=== PATIENT | male | born 1950 | race Caucasian/White ===

== ENCOUNTER 2025-03-01 07:02 | Emergency (ER) | payer MEDICARE, SELFPAY ==
[2025-03-01] VITALS (8 sets, daily range): BP systolic 129–159; BP diastolic 64–115; PULSE 109–120; RESP 15–20; TEMP 36.6–37.1; O2SAT 98–100; BMI 24.1
--- NOTE | 2025-03-01 07:29 | EKG12_ITS ---
Test Reason : CP Blood Pressure : */* mmHG Vent. Rate : 119 BPM Atrial Rate : 136 BPM P-R Int : * ms QRS Dur : 182 ms QT Int : 406 ms P-R-T Axes : * -82 99 degrees QTcB Int : 571 ms Ventricular-paced rhythm Abnormal ECG Confirmed by YAEL NIETO, JON ([id number]), legal editor MARCIO SIMPSON ([id number]) on 03/02/2025 7:27:19 AM Referred By: WYATT Confirmed By: JON CONLEY MD
--- NOTE | 2025-03-01 07:40 | RAD_ITS ---
PROCEDURE: CHEST PA AND LATERAL 03/01/2025 REASON FOR EXAM: CHEST PAIN TECHNIQUE: Procedure Code: RADCXR Modality: DX Procedure: CHEST PA AND LATERAL COMPARISON: None FINDINGS: Median sternotomy wires are noted. There is a left-sided cardiac device with wires in position. There is no focal infiltrate or consolidation. There is no pneumothorax or effusion identified. Atherosclerotic aortic calcifications are present. There is no acute bony abnormality. RAD/Chest PA and Lateral IMPRESSION: No acute process is identified in the chest. Reading Location: [facility]
--- NOTE | 2025-03-01 07:46 | EDS_ITS ---
HPI History of Present Illness Chief Complaint: Chest Pain Narrative Narrative: Chief complaint and HPI: 75-year-old male with history of proximal atrial fibrillation on Eliquis, HTN, pacemaker presents for evaluation of resolved chest pain. Patient is a poor historian when it comes to his past medical history. Patient states that he woke up this morning around 5:30 AM with left- sided chest pain. States that the pain was located over his pacemaker. States he put a home pulse ox reader on and his oxygen was normal but his heart rate was fluctuating. Called EMS. Patient states his chest pain has resolved. He denies any fever, chills, shortness of breath, palpitations, abdominal pain, nausea, vomiting, bilateral lower extremity swelling. He does not know the medication he takes. Review of systems: See HPI Medications: As listed on the chart Allergies: As listed on the chart PFSH: Per chart Vital signs: As listed on the chart. Reviewed. Physical exam: Gen: A&O x3, NAD Head: Normocephalic, atraumatic Eyes: No sclera icterus, conjunctiva clear ENT: Moist mucous membranes Neck: Trachea midline, No JVD CV: Tachycardic, regular rhythm, no murmurs, no peripheral edema, pacemaker without signs of infection Resp: Lungs CTA BL, no w/r/c GI: Abd soft, non-distended, non-tender, no r/r/g Musc: Full ROM, no deformity Skin: Warm, dry Neuro: Alert, oriented, grossly intact, sensation intact Psych: Cooperative, appropriate mood and affect [facility] Medical History (Updated 03/01/25 @ 11:[address] Steve Stephens, ) A-fib Pacemaker Home Medications ?Medication ?Instructions ?Recorded ?Last Taken ?Type amlodipine 10 mg tablet 10 mg PO DAILY 03/01/2502/09 History apixaban 5 mg tablet (Eliquis) 5 mg PO BID 03/01/25 History atorvastatin 80 mg tablet 80 mg PO DAILY 03/01/2502/09 History carvedilol 6.25 mg tablet (Coreg) 6.25 mg PO BID 30 da ys #60 tabs 03/01/25 Unknown Rx folic acid 1 mg tablet 1 mg PO DAILY 03/01/2502/28 History polysaccharide iron complex 150 mg 150 mg PO DAILY 02/28/25 History iron capsule (Ferrex) sitagliptin phosphate 50 mg tablet 50 mg PO DAILY 02/0902/28/25 History (Januvia) Allergy/AdvReac Type Severity Reaction Status Date / Time No Known Allergies Allergy Verified 03/01/25 07:03 Social History Smoking Status: Never smoker EXAM Physical Exam Const Vital Signs: 03/01/25 07:02 03/01/25 07:03 03/01/25 08:02 Temperature 97.9 F Temperature Source Oral Pulse Rate 115 H 117 H Respiratory Rate 18 18 Respiratory Effort Normal Blood Pressure 159/115 H 129/64 H Blood Pressure Mean 129 85 Pulse Ox 100 98 Oxygen Delivery Method Room Air Room Air 03/01/25 09:00 03/01/25 10:00 03/01/25 11:23 Temperature Temperature Source Pulse Rate 109 H 115 H 119 H Respiratory Rate 18 16 20 H Respiratory Effort Blood Pressure 134/78 H 136/110 H Blood Pressure Mean 96 118 Pulse Ox 98 100 Oxygen Delivery Method Room Air 03/01/25 11:30 03/01/25 12:00 03/01/25 12:38 Temperature 98.7 F Temperature Source Pulse Rate 120 H 114 H Respiratory Rate 15 16 Respiratory Effort Blood Pressure 131/82 H 138/101 H 138/101 H Blood Pressure Mean 98 113 113 Pulse Ox 98 100 Oxygen Delivery Method Room Air MDM MDM MDM Narrative Medical decision making narrative: 75-year-old male with history of proximal atrial fibrillation on Eliquis, HTN, pacemaker presents for evaluation of resolved chest pain. Patient is a poor historian when it comes to his past medical history. Patient states that he woke up this morning around 5:30 AM with left-sided chest pain and fluctuating heart rate. States his chest pain has since resolved. He does not know the medications he takes. On chart review, patient is not been seen at [facility]. He states he is mostly seen by [facility]. I was able to [facility] the patient. 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 He is on Eliquis, 81 mg aspirin, 80 mg atorvastatin, Januvia 50 mg, amlodipine 10 mg, Coreg 3.125 mg twice daily. His last echocardiogram was 12/31/2024 and his EF was 44%. Differential diagnosis includes but is not limited to atrial fibrillation, electrolyte abnormality, dehydration, thyroid disease, ACS, CHF, arrhythmia. 500 cc NS bolus ordered with aspirin. Will interrogate his pacemaker once we are able to figure out what brand he has. EKG was personally reviewed and interpreted by me, ED physician. V paced rhythm with LBBB. Heart rate 119. I do not have a previous EKG to compare to. Chest x-ray was personal ly viewed interpreted by me, ED physician. No pneumonia, effusion, cardiomegaly, pneumothorax. Pacemaker in place. Radiology in agreement. CBC without leukocytosis. Patient has anemia with hemoglobin of 12. Platelets unremarkable. Coagulation panel unremarkable. BMP shows CKD with a BUN of 26 and creatinine 1.46. Magnesium level unremarkable. Troponin 34 and 33. I suspect this is the patient's baseline. BNP elevated at 2182. Patient is not fluid overloaded on physical exam or chest x-ray. TSH unremarkable. I was able to interrogate the patient's pacemaker as it is [employer]. I spoke to the employee's representative at the phone. Patient is in atrial tachycardia with a rate of 139. He he is V-paced one-to-one. States that this may be a slow atrial flutter versus a sinus tachycardia. Patient was in a flutter on 02/26 with a rate of 204. He was in this for 26 hours. Given this information, cardiology was consulted. Patient's heart rate here has been anywhere to the 110s to 120. While on the phone with cardiology, rate was 119. I spoke with Dr. Rios. Okay with discharging home with a heart rate of 119 however did recommend giving 20 Cardizem now and increasing patient's Coreg to 6.25 twice daily. Follow-up with his inventory control specialist. Patient and his daughter updated over the results and confirmed understanding. Patient was given 20 mg of Cardizem without any si gnificant improvement in heart rate. Heart rate remains in the 114/115. He is currently asymptomatic without chest pain. Given cardiology, okay to discharge home and follow-up with his inventory control specialist. Given that patient did not take his Coreg today, I did give him a dose of the 6.25 mg prior to discharge. Prescription was written. He was told to monitor his heart rate at home. Return back to the ED if it worsens or symptoms recur. He confirmed understand the plan. Follow-up with cardiology and PCP. Patient stable to discharge home. Impression: 1. Atrial tachycardia 2. Resolved chest pain Lab Data Labs: Laboratory Results - last 24 hr 03/01/25 03/01/25 07:31 09:20 WBC 9.6 RBC 3.98 L Hgb 12.0 L Hct 35.9 L MCV 90.2 MCH 30.2 MCHC 33.4 RDW Std Deviation 45.4 H RDW Coeff of Megan 13.9 Plt Count 196 MPV 9.7 Immature Gran % (Auto) 0.300 Neut % (Auto) 63.1 Lymph % (Auto) 15.3 L Scre[place] % (Auto) 8.5 Eos % (Auto) 12.1 H Baso % (Auto) 0.7 Absolute Neuts (auto) 6.0 Absolute Lymphs (auto) 1.46 Nucleated RBC % 0 PT 14.5 INR 1.1 APTT 31.8 Sodium 139 Potassium 4.3 Chloride 106 Carbon Dioxide 22.7 Anion Gap 11 BUN 26 H Creatinine 1.46 H Estim Creat Clear Calc 43.75 L Est GFR (MDRD) Non-Af 49 L BUN/Creatinine Ratio 17.5 Glucose 179 H Calcium 9.2 Magnesium 2.2 Troponin T High Sens 34 H Troponin T Hi Sens 2 Hr 33 H NT pro BNP II 2182 H TSH 4.170 Radiography Diagnostic Testing: Clinical Impression(s) from Imaging Studies Chest X-Ray 03/01/25 07:40 IMPRESSION: No acute process is identified in the chest. Reading [facility] Dis[facility] Triage Chief Complaint: Chest Pain ED Provider: Steve Stephens Dx/Rx/DC Orders Clinical Impression: Atrial tachycardia Instructions: Understanding Tachycardia, ED Chest Pain, Uncertain Cause Prescriptions: New carvedilol [Coreg] 6.25 mg tablet 6.25 mg PO BID 30 Days Qty: 60 0RF Rx Instructions: must administer with a meal/food Discontinued carvedilol 3.125 mg tablet 3.125 mg PO BID No Action atorvastatin 80 mg tablet 80 mg PO DAILY polysaccharide iron complex [Ferrex 150] 150 mg iron capsule 150 mg PO DAILY amlodipine 10 mg tablet 10 mg PO DAILY folic acid 1 mg tablet 1 mg PO DAILY Januvia 50 mg tablet 50 mg PO DAILY Eliquis 5 mg tablet 5 mg PO BID Primary Care Provider: Taylor Zapien NP Referrals: Follow-up with your inventory control specialist [Other] - As soon as possible Taylor Zapien NP, [facility] [Primary Care Provider, Family Practice] - 3-5 Days Activity Restrictions/Additional Instructions: Monitor your heart rate at home. Return back to ED if symptoms change or worsen. Return back to the ED if your tachycardia worsens. Follow-up with your inventory control specialist. Call to make an appointment as soon as possible. Stop taking your carvedilol 3.125 mg. Instead start taking the new prescription that was prescribed. Print Language: Bulgarian Disposition Disposition: Home, Self Care Discharge Date/Time: 03/01/25 12:38
[2025-03-01 07:52] LABS: Hematocrit 35.9 % (40-54); Hemoglobin 12.0 g/dL (13.0-16.5); Immature Granulocytes Count 0.030 X10^3/uL (0.0-0.0); Mean Corp Hgb Conc 33.4 g/dL (32-36); Mean Corpuscular Volume 90.2 fL (80-94); Mean Platelet Vol. 9.7 fl (6.2-12.0); NRBC Flagged by Analyzer 0 % (0-5); Platelet Count 196 K/mm3 (150-450); RBC Distribution Width CV 13.9 % (11.6-14.6); RBC Distribution Width SD 45.4 fl (35.1-43.9); Red Blood Count 3.98 M/mm3 (4.6-6.2); White Blood Count 9.6 K/mm3 (4.4-11.0)
[2025-03-01] MEDS: 0.9% Normal Saline (500mL Bag) 500 ML 1000 ML IV (07:55)
[2025-03-01 08:13] LABS: Anion Gap 11 (5-15); BUN 26 mg/dL (4-19); BUN/Creat Ratio 17.5 RATIO (10-20); Calcium,Total 9.2 mg/dL (7.6-11.0); Carbon Dioxide 22.7 mmol/L (21.0-32.0); Chloride 106 mmol/L (98-108); Estimated Creatinine Clearance 43.75 ml/min (50-250); Glucose 179 mg/dL (70-99); Magnesium 2.2 mg/dL (1.5-2.2); Potassium 4.3 mmol/L (3.3-5.1); Pro- Brain NATRIURETIC PEPTIDE 2182 pg/mL (<=1800); Troponin T High Sensitivity 34 ng/L (<=22)
[2025-03-01 09:35] LABS: Prothrombin Time (Protime)PT. 14.5 SECONDS (11.7-14.9)
[2025-03-01 09:36] LABS: Partial Thromboplast Time 31.8 Seconds (24.1-36.2)
[2025-03-01 09:55] LABS: Troponin T High Sens 2 HR 33 ng/L (<=22)
== END 2025-03-01 12:38 | disposition home or self-care (01) ==
PROVIDERS: Emergency Provider Surgery; PCP Nurse Practitioner Family; Visit Provider Surgery
DX: I47.19 Other supraventricular tachycardia (principal); I48.0 Paroxysmal atrial fibrillation; E11.22 Type 2 diabetes mellitus with diabetic chronic kidney disease; I12.9 Hypertensive chronic kidney disease with stage 1 through stage 4 chronic kidney disease, or unspecified chronic kidney disease; N18.9 Chronic kidney disease, unspecified; Q60.0 Renal agenesis, unilateral; Z95.0 Presence of cardiac pacemaker; Z79.01 Long term (current) use of anticoagulants; Z79.82 Long term (current) use of aspirin; Z79.84 Long term (current) use of oral hypoglycemic drugs; Z79.899 Other long term (current) drug therapy
CPT/HCPCS: 36415; 71046; 80048; 83735; 83880; 84443; 84484; 85025; 85610; 85730; 93005; 96361; 96374; 99285; A4216

== ENCOUNTER 2025-03-07 08:54 | Inpatient (IN) | payer MEDICARE, SELFPAY ==
--- OUTSIDE RECORDS SUMMARY | 2024-12-31 10:17 | XMS RPT_ITS ---
Author Name Auto Generated Organization OHIP Care Team Providers Care Slate Roofer Helper Name Role Phone JAKOB ROBLES Referring Unavailable QUEDEN, TAYLOR A Primary Care Unavailable TRAVISJAKOB Attending Unavailable SCHWEIKERT, HEDY A Referring Unavailable QUEDEN, TAYLOR A Primary Care Unavailable QUEDEN, TAYLOR A Primary Care Unavailable TRAVISJAKOB Referring Unavailable TRAVIS, JAKOB JIMÉNEZ Referring Unavailable QUEDEN, TAYLOR A Primary Care Unavailable QUEDEN, TAYLOR A Referring Unavailable QUEDEN, TAYLOR A Primary Care Unavailable QUEDEN, TAYLOR A Primary Care Unavailable QUEDEN, TAYLOR A Attending Unavailable QUEDEN, TAYLOR A Referring Unavailable QUEDEN, TAYLOR A Primary Care Unavailable KAJAL REMY Attending Unavailable QUEDEN, TAYLOR A Primary Care Unavailable SELF Referring Unavailable QUEDEN, TAYLOR A Attending Unavailable QUEDEN, TAYLOR A Referring Unavailable SCHWEIKERT, HEDY A Attending Unavailable QUEDEN, TAYLOR A Primary Care Unavailable QUEDEN, TAYLOR A Primary Care Unavailable QUEDEN, TAYLOR A Primary Care Unavailable PROBLEMS DATE TYPE CONDITION / CODE ATTENDING STATUS [facility] 08/15/2020 Active Paroxysmal atria l fibrillation (HCC) / I48.0(ICD-10) NA Active [facility] 12/31/2024 Active Screening for pr ostate cancer / Z12.5(ICD-10) NA Active [facility] 12/08/2024 Active Screening for co rain cancer / Z12.11(ICD-10) KAJAL REMY Active [facility] 02/08/2022 Active Type 2 diabetes mellitus with stage 3 chronic kidney disease, without long-term current use of insulin, unspecified whether stage 3a or 3b CKD (HCC) / E11.22(ICD-10) KENNA TAYLOR Sanchez Active [facility] 02/08/2022 Active Type 2 diabetes mellitus with stage 3 chronic kidney disease, without long-term current use of insulin, unspecified whether stage 3a or 3b CKD (HCC) / N18.30(ICD-10) TAYLOR PIERSON [facility] 09/19/2020 Active Stage 3 chronic kidney disease, unspecified whether stage 3a or 3b CKD (HCC) / N18.30(ICD-10) TAYLOR PIERSON [facility] 08/15/2020 Active Presence of card iac pacemaker / Z95.0(ICD-10) TAYLOR PIERSON [facility] 08/15/2020 Active Anemia, unspecif ied type / D64.9(ICD-10) TAYLOR PIERSON [facility] 06/20/2020 Active Anticoagulant lo ng-term use / Z79.01(ICD-10) TAYLOR PIERSON [facility] 02/19/2022 Active Coronary artery disease involving [place] coronary artery of [place] heart without angina pectoris / I25.10(ICD-10) JAKOB ROBLES Active [facility] 08/15/2020 Active Hyperlipidemia, mixed / E78.2(ICD-10) JAKOB ROBLES Active [facility] 08/15/2020 Active Essential hypert ension, benign / I10(ICD-10) JAKOB ROBLES Active [facility] 08/15/2020 Active S/P CABG x 2 / Z95.1(ICD-10) JAKOB ROBLES Active [facility] 07/22/2020 Active Bilateral caroti d bruits / R09.89(ICD-10) JAKOB ROBLES Active [facility] 07/23/2024 Active Heart block / I45.9(ICD-10) [facility] 02/08/2022 Active Type 2 diabetes mellitus with stage 3a chronic kidney disease, without long-term current use of insulin (HCC) / E11.22(ICD-10) [facility] 02/08/2022 Active Type 2 diabetes mellitus with stage 3a chronic kidney disease, without long-term current use of insulin (HCC) / N18.31(ICD-10) [facility] 05/05/2024 Active Hypertension, es sential / I10(ICD-10) NA Active [facility] 06/17/2020 Active At risk for stro ke / Z91.89(ICD-10) HEDY ROBLES Active [facility] 10/26/2019 Active Bradycardia / R00.1(ICD-10) HEDY ROBLES Active [facility] 10/26/2019 Active Second degree atrioventricular block / I44.1(ICD-10) HEDY ROBLES Active [facility] 04/22/2024 Active HB (heart block) / I45.9(ICD-10) NA Active [facility] PROCEDURES No Procedure Records Found RESULTS PROGRESS Observed: 03/02/2025 4:57 PM Status: COMPLETED Source: [facility] HNO ID: [id number] Author: ES DAWN RN Service: ? Author Type: Registered Nurse Type: Progress Notes Filed: 03/02/2025 17:07 Note Text: ED Follow-Up Note Provider Action / FYI: Call completed by: RN Patient seen in ED: Out of Network ED Contact made with Patient: Yes The patient was identified by Name and Date of . Discussed Care with: daughter Patient was seen in the Emergency Department (ED) Location: [place] ED Date: 03/01/25 Reason for ED Visit: Chest pain ED Intervention: Labs, EKG New Medications: N/A Medication Changes: Coreg 6.25 mg bid Does patient understand medication changes: Yes Can patient afford medication changes: Yes Patient educated on worsening symptoms and when and where to seek additional care: Yes Patient Education Provided including treatment plan and new orders. Patient provided with appropriate counseling: Yes Based on mining professionals, the following disposition is advised: No symptoms or symptoms present, not severe. Routed to: No Action Needed Action: ED follow up appointment scheduled 03/23/25 Es Dawn RN March 02, 2025 5:06 PM CNPTOUTREACH Observed: 03/02/2025 12:00 AM Status: COMPLETED Source: [facility] Patient Outreach (AGACM) SHARON MEJIA ([id number]) 1950 M Date Time Provider Department 03/02/25 ES DAWN AGACM During your visit today, we recorded the following information about you: Es Dawn RN 03/02/2025 5:07 PM Signed ED Follow-Up Note Provider Action / FYI: Call completed by: RN Patient seen in ED: Out of Network ED Contact made with Patient: Yes The patient was identified by Name and Date of . Discussed Care with: daughter Patient was seen in the Emergency Department (ED) Location: [place] ED Date: 03/01/25 Reason for ED Visit: Chest pain ED Intervention: Labs, EKG New Medications: N/A Medication Changes: Coreg 6.25 mg bid Does patient understand medication changes: Yes Can patient afford medication changes: Yes Patient educated on worsening symptoms and when and where to seek additional care: Yes Patient Education Provided including treatment plan and new orders. Patient provided with appropriate counseling: Yes Based on mining professionals, the following disposition is advised: No symptoms or symptoms present, not severe. Routed to: No Action Needed Action: ED follow up appointment scheduled 03/23/25 Es Dawn RN March 02, 2025 5:06 PM Allergies As of Date: 03/02/2025 Noted Allergy Reaction TAPE (ADHESIVE TAPE-SILICONES) 11/03/2019 2 - Rash Date Reviewed: 12/08/2024 Reviewed by: Dalila Harp LPN - Fully Assessed Reason for Visit: Tax Accountant Ed Follow Up [8056] Cmt: ED Follow up call Prescriptions as of 03/02/2025 - FERREX 150 150 mg iron capsule Take 1 capsule by mouth once daily. - amLODIPine (NORVASC) 10 mg tablet Take 1 tablet by mouth once daily - folic acid 1 mg tablet Take 1 tablet by mouth once daily - carvedilol (COREG) 3.125 mg tablet TAKE 1 TABLET BY MOUTH TWICE DAILY WITH MEALS - SITagliptin phosphate (JANUVIA) 50 mg tablet Take 1 tablet by mouth once daily - atorvastatin (LIPITOR) 80 mg tablet Take 1 tablet by mouth once daily. - ELIQUIS 5 mg tab(s) Take 1 tablet by mouth twice daily - ascorbic acid, vitamin C, (VITAMIN C) 500 mg tablet Take 1 tablet by mouth once daily. - MEDICATION, NON-DATABASE Take 1 tablet by mouth once daily. Stool softner - aspirin, enteric coated (ASPIRIN, ENTERIC COATED) 81 mg EC tablet Take 1 tablet by mouth once daily. Meds Comments as of 08/17/2020: 08/17/20 The medications are managed by this patient by: PATIENT and SPOUSE Loreto Dash Pharmacist Problem List As Of Date 03/02/2025 Noted Resolved Tobacco use disorder [F17.200] 08/31/2005 03/14/2020 UTI (URINARY TRACT INFECTION) [N39.0] 08/31/2005 03/14/2016 Essential hypertension, benign [I10] 08/31/2005 Bradycardia [R00.1] 10/22/2019 Second degree atrioventricular block [I44.1] 10/26/2019 HTN (hypertension) [I10] Type 2 diabetes mellitus with stage 3 chronic k* Presence of cardiac pacemaker [Z95.0] 10/26/2019 Chest tightness [R07.89] 11/08/2019 11/09/2019 Lightheadedness [R42] 11/08/2019 11/09/2019 Dizziness [R42] 11/08/2019 11/09/2019 Neurogenic bladder [N31.9] 11/20/2019 Self-catheterizes urinary bladder [Z78.9] 11/20/2019 Acute congestive heart failure (HCC) [I50.9] 11/20/2019 06/17/2020 Poor high blood pressure control [I10] 12/18/2019 02/12/2021 Stage 3a chronic kidney disease (HCC) [N18.31] 12/31/2019 Unequal blood pressures in paired extremities [*12/31/2019 Paroxysmal atrial fibrillation (HCC) [I48.0] At risk for stroke [Z91.89] Anticoagulant long-term use [Z79.01] Hyperlipidemia, mixed [E78.2] 06/21/2020 Unstable angina (HCC) [I20.0] 07/16/2020 07/18/2020 Bilateral carotid bruits [R09.89] 07/22/2020 Atherosclerosis of [place] artery of extremity w*07/22/2020 Chest pain [R07.9] 07/25/2020 08/15/2020 SOB (shortness of breath) [R06.02] 07/25/2020 Anemia [D64.9] 08/09/2020 Malnutrition of mild degree (HCC) [E44.1] 08/10/2020 02/12/2021 S/P CABG x 2 [Z95.1] 08/11/2020 CKD (chronic kidney disease) Stage 3, GFR 30-59*09/19/2020 Hypertensive kidney disease with stage 3 chroni*02/08/2022 CAD (coronary artery disease) [I25.10] Encounter for care of pacemaker [Z45.018] 04/02/2023 Encounter Status:Closed by ES DAWN on 03/02/25 ECHO Observed: 12/31/2024 10:26 AM Status: F Source: [facility] Echocardiography Report: Tra nsthoracic Echo [facility] Date of service: 12/31/2024 10:26:03 AM INTERVIEWER Ordering physician: JAKOB ROBLES Exam indication: CAD Technologist: Noemí Polanco [facility] Interpreting physician: Ayush Crum MD PATIENT: Name: SHARON MEJIA : 1950 Age: 74 years Gender: M History of hypertension, diabetes mellitus, chronic kidney disease and arrhythmia. Previous cardiovascular interventions: Other pacemaker implant Primary rhythm: sinus. Height: 177.80 cm BSA: 1.90 m Weight: 73.03 kg BMI: 23.1 kg/m Heart rate 70 bpm Technically difficult exam due to body habitus. Color Doppler was utilized to interrogate the cardiac valves assessed and spectral Doppler was utilized to determine the flow velocities and pressure gradients reported in this exam. MEASUREMENTS: Value Indexed Normal Max aortic dimension 3.0 cm Ao < 3.8 Left atrial volume 50 ml (biplane A-L) 26 ml/m Renuka <= 34 LV ID (diastole) 4.4 cm (2D) 2.31 cm/m LV ID (systole) 3.4 cm (2D) 1.80 cm/m IVS, leaflet tips 0.9 cm (2D) Posterior wall thickness 1.0 cm (2D) Left ventricular mass 141 g (2D) 74 g/m LV stroke volume 43 ml (2D biplane) LV end diastolic volume 99 ml (2D biplane) 52.1 ml/m 34<=EDVi<75 LV end systolic volume 56 ml (2D biplane) 29.4 ml/m Ejection Fraction 44 % (2D biplane) EF > 52 FINDINGS: LEFT VENTRICLE The left ventricle is normal in size. Left ventricular systolic function is mildly decreased regionally. Left ventricular diastolic function was not evaluated due to pacing. Wall Motion: The mid and distal anterior septum, mid and distal inferior wall, apical lateral segment, mid inferoseptal segment, and apex are mildly hypokinetic. All remaining scored segments are normal. RIGHT VENTRICLE The right ventricle is normal in size. Pacer wires are noted in the right ventricle. Right ventricular systolic function is mildly decreased. RV systolic tissue Doppler velocity is 8.0 cm/s. Tricuspid annular displacement is 1.3 cm. Estimated right ventricular systolic pressure is not reported due to an insufficient tricuspid regurgitation signal. Estimated right atrial pressure is 3 mmHg based on IVC assessment. LEFT ATRIUM The left atrial cavity is normal in size. RIGHT ATRIUM The right atrial cavity is normal in size. Pacer wires are noted in the right atrium. Inferior Vena Cava: The inferior vena cava appears normal measuring 1.1 cm. The vessel decreases greater than 50 percent with inspiration. MITRAL VALVE The mitral valve leaflets are structurally normal. There is no mitral valve regurgitation. TRICUSPID VALVE The tricuspid valve leaflets are structurally normal. There is trace tricuspid valve regurgitation. AORTIC VALVE There is no aortic valve stenosis. There is trace (trace - 1+) aortic valve regurgitation. Tricuspid aortic valve. There is mild thickening. There is mild calcification. The peak gradient is 5 mmHg (peak velocity = 114.8 cm/s). PULMONIC VALVE The pulmonic valve cusps are structurally normal. There is no pulmonic valve stenosis. There is no pulmonic valve regurgitation. AORTA The visualized aorta is normal in size. Measurements - Mid ascending aorta 3.0 cm. INTERATRIAL SEPTUM There is no evidence of intracardiac shunting as detected by Doppler. INTERVENTRICULAR SEPTUM There is abnormal motion of the interventricular septum secondary to a pacemaker and prior cardiac surgery. PERICARDIUM There is no pericardial effusion. There is an epicardial fat pad. CONCLUSIONS: - Technically difficult exam due to body habitus. - Exam indication: CAD - The left ventricle is normal in size. Left ventricular systolic function is mildly decreased. EF = 44 5% (2D biplane). Left ventricular diastolic function was not evaluated due to pacing. - The right ventricle is normal in size. Right ventricular systolic function is mildly decreased. - Wall motion abnormalities as above. - No significant valvular abnormalities. - Exam was compared with the prior echocardiographic exam performed on 07/18/2020. LV function has decreased with new wall motion abnormalities. * * * Final * * * [employer] [facility] Image : [id number] US CAROTID ARTERIES [facility] Observed: 12/31/2024 9:41 AM Status: F Source: [facility] Carotid Duplex Bilateral/Complete Date of service/time: 12/31/2024 9:41:03 AM Name: SHARON MEJIA Date of : 1950 Age: 74 years Gender: M Clinical Indication Follow-up study on a patient with known carotid disease. TECHNIQUE -------- A carotid duplex ultrasound examination was performed, including grayscale imaging and color Doppler and spectral Doppler examination of the below mentioned arteries. FINDINGS -------- RIGHT SIDE Common carotid artery: Origin: PSV: 95 cm/s. EDV: 0 cm/s. Proximal: PSV: 87 cm/s. EDV: 9 cm/s. Mid: PSV: 75 cm/s. EDV: 9 cm/s. Distal: PSV: 81 cm/s. EDV: 12 cm/s. Mild heterogeneous plaque from proximal to mid. Moderate heterogeneous plaque at distal. Internal carotid artery: Origin: PSV: 130 cm/s. EDV: 31 cm/s. Proximal: PSV: 114 cm/s. EDV: 21 cm/s. Mid: PSV: 105 cm/s. EDV: 26 cm/s. Distal: PSV: 62 cm/s. EDV: 16 cm/s. Moderate heterogeneous plaque at origin. ICA/CCA Ratio: 1.6 External carotid artery: Origin: PSV: 107 cm/s. EDV: 0 cm/s. Mild heterogeneous plaque at origin. Subclavian artery: Origin: PSV: 193 cm/s. EDV: 0 cm/s. Proximal: PSV: 213 cm/s. EDV: 0 cm/s. Moderate heterogeneous plaque at origin. Innominate artery: PSV: 86 cm/s. EDV: 0 cm/s. Vertebral artery: PSV: 79 cm/s. EDV: 18 cm/s. LEFT SIDE Common carotid artery: Proximal: PSV: 60 cm/s. EDV: 13 cm/s. Mid: PSV: 97 cm/s. EDV: 22 cm/s. Distal: PSV: 97 cm/s. EDV: 20 cm/s. Mild heterogeneous plaque from proximal to mid. Moderate heterogeneous plaque at distal. Internal carotid artery: Origin: PSV: 215 cm/s. EDV: 63 cm/s. Proximal: PSV: 159 cm/s. EDV: 40 cm/s. Mid: PSV: 120 cm/s. EDV: 33 cm/s. Distal: PSV: 86 cm/s. EDV: 29 cm/s. Moderate heterogeneous plaque at origin. ICA/CCA Ratio: 2.2 External carotid artery: Origin: PSV: 95 cm/s. EDV: 0 cm/s. Subclavian artery: Proximal: PSV: 232 cm/s. EDV: 0 cm/s. Mild/moderate heterogeneous plaque at proximal. IMPRESSION Please note: the new carotid interpretation criteria are used as recommended by Intersoci[employer] Commission. RIGHT SIDE Common carotid artery: Plaque visualized without evidence of hemodynamically significant stenosis. Internal carotid artery: <50% stenosis consistent with mild carotid artery disease. Moderate plaque noted; however, ICA/CCA Ratio does not meet criteria for over 50% stenosis. Vertebral artery: Patent and antegrade flow noted. Subclavian artery: Plaque visualized without evidence of hemodynamically significant stenosis. LEFT SIDE Internal carotid artery: 50-69% stenosis consistent with moderate carotid artery disease. Consider referral to a vascular specialist unless already implemented. Vertebral artery: Bidirectional flow is evidence of incomplete subclavian steal. Subclavian artery: Turbulent flow noted, cannot rule out more proximal subclavian artery stenosis. Plaque noted. May wish other means of evaluation. Technologist: Jacinda Fonseca RVT, [facility] Ordering physician: JAKOB ROBLES Interpreting physician: Ibrahima Mejia MD, RPVI Final CC [employer] [facility] : [id number] See Link below for Image PSA/PROSTATE SPECIFIC ANTIGEN SCREENING Collected: 12/31/2024 9:28 AM Status: F Source: [facility] Order Comment: Specimen Type : BLOOD SPECIMEN Ordering Facility: [facility] Address: [address] [place] [address] TYPE CODE TESTS RESULT OUT OF RANGE REFERENCE UNITS LAB 2857-1(LOINC) PSA [facility] 5.23 High <2.60 ng/mL Result Comment: Total PSA te st methodology used is the Electrochemiluminescence Immunoassay by [employer]. Total PSA values by differing methodologies cannot be interchanged. For an individual patient, the significance of a PSA level should be interpreted in a broad clinical context, including age, race, family history, digital rectal exam, prostate size, results of prior testing (prostate biopsy, free PSA, PCA3), and use of 5-alpha reductase inhibitors. Considering the high incidence of asymptomatic cancer in the general population that may not pose an ultimate risk to a patient, the decision to recommend urological evaluation or prostate biopsy should be individualized after consideration of all these factors. REFERENCE: Feliciano Rain M.D., M.P.H., Ibrahima Santizo M.D., Ph.D., Celestino Maldonado M.D., Nadja Graff, M.P.H., Bonnie Floyd, Sc.Ambreen. Effect of Verification Bias on Screening for Prostate Cancer by Measurement of Prostatic Specific Antigen. N Engl J Med 2003,349:335-42. Performed By: #### PSAS1 ### # [facility] CLIA [id number] [address] [place] [address] [place] COMP METAB 2000 PNL SERPL Collected: 9:28 AM Status: F Source: [facility] Order Comment: Specimen Type : BLOOD SPECIMEN Ordering Facility: [facility] Address: [address] [place] [address] TYPE CODE TESTS RESULT OUT OF RANGE REFERENCE UNITS LAB 2885-2(LOINC) Prot SerPl-mCnc 7.0 6.3-8.0 g/dL LAB 1751-7(LOINC) Albumin SerPl-mCnc 4.4 3.9-4.9 g/dL LAB 95737-1(LOINC) Calcium SerPl-mCnc 9.5 8.5-10.2 mg/dL LAB 1975-2(LOINC) Bilirub SerPl-mCnc 0.3 0.2-1.3 mg/dL LAB 6768-6(LOINC) ALP SerPl-cCnc 120 High 38-113 U/L LAB 1920-8(LOINC) AST SerPl-cCnc 16 14-40 U/L LAB 1742-6(LOINC) ALT SerPl-cCnc 12 10-54 U/L LAB 2345-7(LOINC) Glucose SerPl-mCnc 154 High 74-99 mg/dL Result Comment: The [place] Diabetes Association (ADA) provides guidance for cutoff values for fasting glucose and random glucose. The ADA defines fasting as no caloric intake for at least 8 hours. Fasting plasma glucose results between 100 to 125 mg/dL indicate increased risk for diabetes (prediabetes). Fasting plasma glucose results greater than or equal to 126 mg/dL meet the criteria for diagnosis of diabetes. In the absence of unequivocal hyperglycemia, results should be confirmed by repeat testing. In a patient with classic symptoms of hyperglycemia or hyperglycemic crisis, random plasma glucose results greater than or equal to 200 mg/dL meet the criteria for diagnosis of diabetes. Reference: Standards of Medical Care in Diabetes 2016, [place] Diabetes Association. Diabetes Care. 2016.39(Suppl 1). LAB 3094-0(LOINC) BUN SerPl-mCnc 24 9-24 mg/dL LAB 2160-0(LOINC) Creat SerPl-mCnc 1.47 High 0.73-1.22 mg/dL LAB 2951-2(LOINC) Sodium SerPl-sCnc 140 136-144 mmol/L LAB 2823-3(LOINC) Potassium SerPl-sCnc 4.1 3.7-5.1 mmol/L LAB 2075-0(LOINC) Chloride SerPl-sCnc 104 98-107 mmol/L LAB 2028-9(LOINC) CO2 SerPl-sCnc 22 22-30 mmol/L LAB 47782-0(LOINC) Anion Gap SerPl-sCnc 14 8-15 mmol/L LAB 27745-3(LOINC) eGFRcr SerPlBld CKD-EPI 2020 49 Low >=60 mL/min/1. 73m??? Result Comment: Estimated Gl omerular Filtration Rate (eGFR) is calculated using the 2020 CKD-EPI creatinine equation. This equation utilizes serum creatinine, sex, and age as parameters. The creatinine assay has traceable calibration to isotope dilution-mass spectrometry. Refer to KDIGO guidelines for clinical interpretation. In patients with unstable renal function, e.g. those with acute kidney injury, the eGFR may not accurately reflect actual GFR. Performed By: #### 19124-2 # ### [facility] CLIA [id number] [address] [place] [address] [place] LIPID 1996 PNL SERPL Collected: 025 9:28 AM Status: F Source: [facility] Order Comment: Specimen Type : BLOOD SPECIMEN Ordering Facility: [facility] Address: [address] [place] [address] TYPE CODE TESTS RESULT OUT OF RANGE REFERENCE UNITS LAB 3-3(LOINC) Cholest SerPl-mCnc 172 <200 mg/dL Result Comment: <200 mg/dL, Desirable 200-239 mg/dL, Borderline high >239 mg/dL, High LAB 2571-8(LOINC) Trigl SerPl-mCnc 80 <150 mg/dL Result Comment: <150 mg/dL, Normal 150-199 mg/dL, Borderline high 200-499 mg/dL, High >499 mg/dL, Very high LAB 2085-9(LOINC) HDLc SerPl-mCnc 67 >39 mg/dL Result Comment: 40-59 mg/dL, Acceptable >59 mg/dL, High: Negative risk factor for coronary heart disease <40 mg/dL, Low: Positive risk factor for coronary heart disease LAB 2089-1(LOINC) LDLc SerPl-mCnc 90 <100 mg/dL Result Comment: <100 mg/dL, Optimal 100-129 mg/dL, Near optimal/above optimal 130-159 mg/dL, Borderline high 160-189 mg/dL, High >189 mg/dL, Very high Secondary prevention optimal LDL Cholesterol levels are recommended to be <70 mg/dL LDL cholesterol is calculated using the Crowe-NIH equation. LAB 36651-9(LOINC) NonHDLc SerPl-mCnc 105 <130 mg/dL Result Comment: <130 mg/dL, Optimal 130-159 mg/dL, Near optimal/above optimal 160-189 mg/dL, Borderline high 190-219 mg/dL, High >219 mg/dL, Very high Secondary prevention optimal non HDL Cholesterol levels are recommended to be <100 mg/dL LAB 96673-3(LOINC) VLDLc SerPl Calc-mCnc 13 <30 mg/dL LAB 9830-1(LOINC) Cholest/HDLc SerPl 2.57 <5.10 LAB 61039-6(LOINC) LDLc/HDLc SerPl 1.34 <2.54 Result Comment: Reference: 1. National Cholesterol Education Program ATP III Guideline At-A-Glance Quick Desk Reference: National Heart, Lung, and Blood [place]. National Institutes of Health. 2001: NIH Publication No. 01-3305. 2. An International Atherosclerosis Society position paper: global recommendations for the management of dyslipidemia: executive summary, Atherosclerosis. 2014: 232(2):410-413. LAB FT FASTING TIME 12 hrs Performed By: #### 13438-5 # ### [facility] CLIA [id number] [address] [place] [address] [place] [facility] CLIA [id number] [address] [place] PROGRESS Observed: 12/08/2024 3:03 PM Status: COMPLETED Source: [facility] HNO ID: [id number] Author: KAJAL REMY MD Service: ? Author Type: Physician Type: Progress Notes Filed: 12/08/2024 15:12 Note Text: HISTORY AND PHYSICAL Sharon Mejia 1950 REFERRING PHYSICIAN: Taylor Pierson APRN* CHIEF COMPLAINT: Consult (Consult for Colon cancer screening.) HPI: The patient is a 74 year old male referred for endoscopy. Sharon presents for screening for colon cancer via colonoscopy The patient denies blood in stools, denies abdominal pain, and denies changes in bowel habits. He last had a Cologard three years ago and it was negative The patient notes no colon cancer in immediate family. The patient has not had previous colonoscopy. PAST MEDICAL HISTORY Diagnosis Date Anticoagulant long-term use At risk for stroke Bradycardia 10/22/2019 CAD (coronary artery disease) CKD (chronic kidney disease) stage 2, GFR 60-89 ml/min Congenital absence of one kidney Controlled type 2 diabetes mellitus without complication, without long-term current use of insulin (HCC) Diabetes (HCC) HTN (hypertension) Mixed hyperlipidemia Paroxysmal atrial fibrillation (HCC) Poor high blood pressure control 12/18/2019 Presence of cardiac pacemaker 10/26/2019 [employer] dual-chamber pacemaker 10/26/2019; indication: symptomatic bradycardia due to second-degree AV block; MRI conditional after 6 weeks post implant Second degree atrioventricular block 10/26/2019 Tobacco use disorder 08/31/2005 PAST SURGICAL HISTORY Procedure Laterality Date BASIC PACEMAKER DUAL CHAMBER Left 10/26/2019 [employer] dual-chamber pacemaker; indication: symptomatic bradycardia due to second-degree AV block; MRI conditional after 6 weeks post implant; [facility] Dr. Robles CABG (2) VEIN GRAFTS AND ARTERIAL GRAFT(S 08/09/2020 LEFT HEART CATH,PERCUTANEOUS 07/17/2020 UNLISTED PROCEDURE HUMERUS/ELBOW Left 1956 Current Outpatient Medications Medication Sig FERREX 150 150 mg iron capsule Take 1 capsule by mouth once daily. amLODIPine (NORVASC) 10 mg tablet Take 1 tablet by mouth once daily folic acid 1 mg tablet Take 1 tablet by mouth once daily carvedilol (COREG) 3.125 mg tablet TAKE 1 TABLET BY MOUTH TWICE DAILY WITH MEALS SITagliptin phosphate (JANUVIA) 50 mg tablet Take 1 tablet by mouth once daily atorvastatin (LIPITOR) 80 mg tablet Take 1 tablet by mouth once daily. ELIQUIS 5 mg tab(s) Take 1 tablet by mouth twice daily ascorbic acid, vitamin C, (VITAMIN C) 500 mg tablet Take 1 tablet by mouth once daily. MEDICATION, NON-DATABASE Take 1 tablet by mouth once daily. Stool softner aspirin, enteric coated (ASPIRIN, ENTERIC COATED) 81 mg EC tablet Take 1 tablet by mouth once daily. No current facility-administered medications for this visit. ALLERGIES: Tape [Adhesive Tape-Silicones] PERSONAL HISTORY: Social History Tobacco Use Smoking status: Former Current packs/day: 0.00 Average packs/day: 0.5 packs/day for 40.0 years (20.0 ttl pk-yrs) Types: Cigarettes Start date: 08/25/1965 Quit date: 08/25/2005 Years since quittin.3 Smokeless tobacco: Never Vaping Use Vaping status: Never Used Substance Use Topics Alcohol use: Not Currently Drug use: Never FAMILY HISTORY Problem Relation Age of Onset other (pacemaker) Brother Diabetes Mother Hypertension Mother Stroke Father Heart disease Brother PCI REVIEW OF SYSTEMS: General - denies fevers HEENT - denies trauma/infections Resp - denies coughing up blood, denies breathing difficulties Cardiac - denies chest pain, has history of CABG and pacemaker placed (last checked April) GI - denies abdominal pain, denies blood in stools, denies vomiting up of blood - denies blood in urine Endocrine - denies diabetes Psych - denies hallucinations PHYSICAL EXAMINATION: General: The patient is 74 year old male, well nourished, well hydrated in no acute distress. The patient is oriented to time, place, and person. VITALS: Blood pressure 120/62, pulse 71, resp. rate 16, height 177.8 cm (5' 10"), weight 72.8 kg (160 lb 6.4 oz), SpO2 97%. Body mass index is 23.02 kg/m?. Head: Normal cephalic, atraumatic Eyes: pupils are equally round, sclera are clear/anicteric, wearing glasses Neck is supple with no tracheal deviation Cardiac: normal heart sounds, regular Respiratory: Normal respiratory excursion and pattern. Abdominal exam: benign Extremities: no clubbing, cyanosis or edema. Neuro: non focal Psych: normal mood The sensitive examination was discussed with the Patient or Patient's Authorized Rn Hyperbaric. As applicable, any other physician, advance practice provider, medical student, or other health professional student that will be observing or involved in the sensitive examination for educational or training purposes was discussed with the Patient or Authorized Rn Hyperbaric. The Patient or Authorized Rn Hyperbaric has agreed to proceed with the sensitive examination. (Sensitive examination includes inspection and/or palpation of the breasts, pelvis, prostate and anorectal regions) Assessment IMPRESSION: screening for colon cancer PLAN: I have discussed the above with the patient and his daughter who is present with him. I have offered colonoscopy , possible biopsies I have explained the procedure to the patient. I have counseled the patient as to the risks of the procedure, including but not limited to: infection, bleeding, injury to any intrabdominal organs such as liver/spleen, perforation of the GI tract, inability to complete the procedure, complications of anesthesia, etc. - the patient understands. The patient wishes to proceed. I have answered all questions to the patient?s satisfaction and the patient has no further questions. I have educated the patient as to the colon cleansing regimen and I have prescribed Golytely for the colon cleansing solution. The patient will be scheduled for the procedure at [facility]. Diagnoses: (Z12.11) Screening for colon cancer I have confirmed and edited as necessary, the PFSH and ROS obtained by others. Consultation requested by Taylor Pierson for an opinion regarding patient's screening for colon cancer. My final recommendations will be communicated back to the requesting physician by way of shared Medical record or letter to requesting physician via US mail. Medical Decision Making: Risk: Low: Low risk from testing/treatment Medical Decision Making Level: 2 - Straightforward Kajal Remy MD CNOV Observed: 12/08/2024 3:00 PM Status: COMPLETED Source: [facility] Office Visit (MARSHALL) SHARON MEJIA ([id number]) 1950 M Date Time Provider Department 12/08/24 3:00 PM KAJAL REMY During your visit today, we recorded the following information about you: Pulse Respiration Blood pressure Weight 71/minute 16/minute 120/62 72.8 kg Height 1.778 m Kajal Remy MD 12/08/2024 3:12 PM Signed HISTORY AND PHYSICAL Sharon Mejia 1950 REFERRING PHYSICIAN: Taylor Pierson APRN* CHIEF COMPLAINT: Consult (Consult for Colon cancer screening.) HPI: The patient is a 74 year old male referred for endoscopy. Sharon presents for screening for colon cancer via colonoscopy The patient denies blood in stools, denies abdominal pain, and denies changes in bowel habits. He last had a Cologard three years ago and it was negative The patient notes no colon cancer in immediate family. The patient has not had previous colonoscopy. PAST MEDICAL HISTORY Diagnosis Date Anticoagulant long-term use At risk for stroke Bradycardia 10/22/2019 CAD (coronary artery disease) CKD (chronic kidney disease) stage 2, GFR 60-89 ml/min Congenital absence of one kidney Controlled type 2 diabetes mellitus without complication, without long-term current use of insulin (HCC) Diabetes (HCC) HTN (hypertension) Mixed hyperlipidemia Paroxysmal atrial fibrillation (HCC) Poor high blood pressure control 12/18/2019 Presence of cardiac pacemaker 10/26/2019 [employer] dual-chamber pacemaker 10/26/2019; indication: symptomatic bradycardia due to second-degree AV block; MRI conditional after 6 weeks post implant Second degree atrioventricular block 10/26/2019 Tobacco use disorder 08/31/2005 PAST SURGICAL HISTORY Procedure Laterality Date BASIC PACEMAKER DUAL CHAMBER Left 10/26/2019 [employer] dual-chamber pacemaker; indication: symptomatic bradycardia due to second-degree AV block; MRI conditional after 6 weeks post implant[facility]G (2) VEIN GRAFTS AND ARTERIAL GRAFT(S 08/09/2020 LEFT HEART CATH,PERCUTANEOUS 07/17/2020 UNLISTED PROCEDURE HUMERUS/ELBOW Left 1956 Current Outpatient Medications Medication Sig FERREX 150 150 mg iron capsule Take 1 capsule by mouth once daily. amLODIPine (NORVASC) 10 mg tablet Take 1 tablet by mouth once daily folic acid 1 mg tablet Take 1 tablet by mouth once daily carvedilol (COREG) 3.125 mg tablet TAKE 1 TABLET BY MOUTH TWICE DAILY WITH MEALS SITagliptin phosphate (JANUVIA) 50 mg tablet Take 1 tablet by mouth once daily atorvastatin (LIPITOR) 80 mg tablet Take 1 tablet by mouth once daily. ELIQUIS 5 mg tab(s) Take 1 tablet by mouth twice daily ascorbic acid, vitamin C, (VITAMIN C) 500 mg tablet Take 1 tablet by mouth once daily. MEDICATION, NON-DATABASE Take 1 tablet by mouth once daily. Stool softner aspirin, enteric coated (ASPIRIN, ENTERIC COATED) 81 mg EC tablet Take 1 tablet by mouth once daily. No current facility-administered medications for this visit. ALLERGIES: Tape [Adhesive Tape-Silicones] PERSONAL HISTORY: Social History Tobacco Use Smoking status: Former Current packs/day: 0.00 Average packs/day: 0.5 packs/day for 40.0 years (20.0 ttl pk-yrs) Types: Cigarettes Start date: 08/25/1965 Quit date: 08/25/2005 Years since quittin.3 Smokeless tobacco: Never Vaping Use Vaping status: Never Used Substance Use Topics Alcohol use: Not Currently Drug use: Never FAMILY HISTORY Problem Relation Age of Onset other (pacemaker) Brother Diabetes Mother Hypertension Mother Stroke Father Heart disease Brother PCI REVIEW OF SYSTEMS: General - denies fevers HEENT - denies trauma/infections Resp - denies coughing up blood, denies breathing difficulties Cardiac - denies chest pain, has history of CABG and pacemaker placed (last checked April) GI - denies abdominal pain, denies blood in stools, denies vomiting up of blood - denies blood in urine Endocrine - denies diabetes Psych - denies hallucinations PHYSICAL EXAMINATION: General: The patient is 74 year old male, well nourished, well hydrated in no acute distress. The patient is oriented to time, place, and person. VITALS: Blood pressure 120/62, pulse 71, resp. rate 16, height 177.8 cm (5' 10"), weight 72.8 kg (160 lb 6.4 oz), SpO2 97%. Body mass index is 23.02 kg/m?. Head: Normal cephalic, atraumatic Eyes: pupils are equally round, sclera are clear/anicteric, wearing glasses Neck is supple with no tracheal deviation Cardiac: normal heart sounds, regular Respiratory: Normal respiratory excursion and pattern. Abdominal exam: benign Extremities: no clubbing, cyanosis or edema. Neuro: non focal Psych: normal mood The sensitive examination was discussed with the Patient or Patient's Authorized Rn Hyperbaric. As applicable, any other physician, advance practice provider, medical student, or other health professional student that will be observing or involved in the sensitive examination for educational or training purposes was discussed with the Patient or Authorized Rn Hyperbaric. The Patient or Authorized Rn Hyperbaric has agreed to proceed with the sensitive examination. (Sensitive examination includes inspection and/or palpation of the breasts, pelvis, prostate and anorectal regions) Assessment IMPRESSION: screening for colon cancer PLAN: I have discussed the above with the patient and his daughter who is present with him. I have offered colonoscopy , possible biopsies I have explained the procedure to the patient. I have counseled the patient as to the risks of the procedure, including but not limited to: infection, bleeding, injury to any intrabdominal organs such as liver/spleen, perforation of the GI tract, inability to complete the procedure, complications of anesthesia, etc. - the patient understands. The patient wishes to proceed. I have answered all questions to the patient?s satisfaction and the patient has no further questions. I have educated the patient as to the colon cleansing regimen and I have prescribed Golytely for the colon cleansing solution. The patient will be scheduled for the procedure at [facility]. Diagnoses: (Z12.11) Screening for colon cancer I have confirmed and edited as necessary, the PFSH and ROS obtained by others. Consultation requested by Taylor Pierson for an opinion regarding patient's screening for colon cancer. My final recommendations will be communicated back to the requesting physician by way of shared Medical record or letter to requesting physician via US mail. Medical Decision Making: Risk: Low: Low risk from testing/treatment Medical Decision Making Level: 2 - Straightforward MD Jonel Sidhu, Kajal Olivera MD 12/08/2024 3:06 PM Addendum COLONOSCOPY BOWEL PREPARATION INSTRUCTIONS GOLYTELY/NULYTELY/TRILYTE/COLYTE Your doctor has scheduled you for a colonoscopy. To have a successful colonoscopy, you must have a clean colon, that is empty. A clean colon allows your doctor to see the entire colon AND diagnose issues like polyps or cancer. For doctors, a clean colon is like driving on a armando day; a dirty colon like driving in a storm. It is very important that you follow these instructions exactly, or your colonoscopy might not be as effective, could be canceled, and you may need to do the bowel prep and the colonoscopy again. TRANSPORTATION REQUIREMENTS You are receiving IV sedation. For your safety, a responsible adult escort must accompany you to and from your procedure: Your adult escort MUST be present with you at check-in for your colonoscopy. Your adult escort MUST remain in the endoscopy area until you are discharged. Your adult escort MUST transport you home once you are discharged. You are NOT allowed to operate any form of transportation (i.e. drive a car, bicycle, etc.) or leave the Endoscopy Center ALONE. It is not safe to do so. If you cannot meet these requirements, your procedure will be canceled. MEDICATION REQUIREMENTS For your safety, certain medications will need to be stopped or adjusted before you can have your procedure: BLOOD THINNERS: If you take blood thinners, such as Coumadin (warfarin), Plavix (clopidogrel), Ticlid (ticlopidine hydrochloride), Agrylin (anagrelide), Xarelto (Rivaroxaban), Pradaxa (Dabigatran), Eliquis (Apixaban), or Effient (Prasugrel), contact the physician who is prescribing these medications at least 2 weeks prior to your procedure to discuss any necessary adjustments. DIABETES: If you take medications for diabetes, your dosage may need to be adjusted. If you are being treated for diabetes with insulin, diabetic pills, or other injectable medications do not take your REGULAR dose after midnight on the day of your procedure. If you are taking any other types of insulin such as Lantus, Humalog, NPH (long-acting insulin), or 70/30 insulin, take half your normal dose the day before your procedure. DIABETES/WEIGHT MANAGEMENT: If you take medications for weight-loss, your dosage may need to be adjusted Contact the doctor who prescribes this medication for further instructions. If you take medications for weight-loss like semaglutide (Ozempic, Wegovy, Rybelsus), dulaglutide (Trulicity), liraglutide (Victoza, Saxenda), exenatide (Byetta, Bydureon), or lixisenatide (Adylyxin), stop your medication 1 week prior to your procedure. If you take medications like canagliflozin (Invokana), dapagliflozin (Farxiga, Forxiga), empagliflozin (Jardiance), stop your medication 3 days prior to your procedure. If you take ertugliflozin (Steglatro) stop your medication 4 days prior to your procedure. IRON: If you take iron pills, STOP them 1 week BEFORE your procedure, may resume after. OTHER MEDS: May take all other medications (including aspirin, antibiotics, water pills / diuretics like Lasix or Metolozone, blood pressure meds, etc.) at their usual scheduled time with a sip of water. DIET REQUIREMENTS The day before your colonoscopy, you may have a clear liquid diet (see below). The day of your colonoscopy, you may continue a clear liquid diet until 4 hours before your colonoscopy. Within 3 hours of your colonoscopy, take only any medications (as above) with a sip of water. Clear Liquid Diet Broth (chicken, beef or vegetable broth or bullion. Just the broth, no solids). Water Coffee or Tea (NO milk or creamer), but sugar and sugar substitutes are allowed. Clear liquids including clear, yellow, green, blue (NO red, ) Sodas / soft drinks Gatorade or other sports drinks Manuel-Aid or flavored drinks Plain Jell-O or other gelatins Fruit juice (strained; no-pulp) Popsicles or hard candy BOWEL PREPARATION (GOLYTELY/NULYTELY/TRILYTE/COLYTE) Split Dosing Bowel Prep: This means drinking your bowel prep in two doses. Split dosing helps clean your colon better and makes it less likely that your procedure will be canceled. Fill your prescription for Golytely/Nulytely/Trilyte/Colyte: The afternoon before your colonoscopy, mix the solution and refrigerate. You may add the flavor pack (if present) that came with the bowel preparation. Do not add ice, sugar, or other flavorings to the solution. You will drink your prep in two doses, by several hours. DRink both halves the day before the procedure Bowel prep can work differently from person to person. Some people's bowels move slowly and they may need different instructions. Please see your doctor in office or virtually for personalized bowel prep instructions if you have: Medical condition that needs special accommodations Had a poor bowel prep results or failed bowel prep attempts in the past. Had difficulty with anesthesia during the procedure. FREQUENTLY ASKED QUESTIONS Q: What if I suffer from constipation? A: Recommend taking extra laxatives to resolve your constipation days prior to entering the bowel prep day. Q: What if have had prior poor preps results in past? A: Contact your physician as you will likely need additional bowel prep instructions. Q: What if I have motility issues like Parkinson's, MS (multiple sclerosis), wheelchair dependent, etc.? or on medications that slow bowel emptying (narcotics, gabapentin, anticholinergic medications etc.) A: Contact your physician as you will likely need extra time and additional laxatives to complete your bowel prep. Q: What if I cannot drink large volume of liquid? A: Start your prep 2-3 hours earlier to allow yourself more time to complete the entire prep. Q: What if I can't finish my bowel prep? A: If you cannot finish your entire bowel prep, it is likely that your colonoscopy will need to be rescheduled due to poor prep quality. Q: What if I had bariatric surgery? Do I still have to complete the entire prep? A: Yes, gastric bypass surgery involves the stomach AND small bowel. You may need to drink smaller amounts, slower (may need more time to complete your bowel prep). Gastric bypass does not alter the length of your colon so you will need to complete the entire bowel prep, it may just take longer time to complete it. Q: What if I am on dialysis? A: Please consult your chopper feeder prior to scheduling to get instructions pertinent to you. In general, dialysis patients take the [employer] bowel prep and have the procedure same day of their dialysis (colonoscopy in AM, dialysis in PM). Q: How do I know if something is considered as clear liquid diet? A: If you can pour it in a glass and you can see through it, it is considered clear liquid Q: Can I eat nuts, seeds, beans, popcorn, dried fruits, vegetables AND fruits that have skin peel? A: No, you will need to not eat these items starting 5 days prior to procedure. Q: Can I take Uber/Lyft/taxi/bus home? A: An adult MUST be present with you at check-in for your colonoscopy and remain in the endoscopy area until you are discharged. You can take Uber home only if this adult escort is with you at check in, remain in the endoscopy area until you are discharged, and takes the Uber with you to home. Q: Can I ?sleep it off? here and drive myself home? A: No, you must have an adult with you at time of procedure check in, remain in the endoscopy center during your procedure, and drive you home. You cannot drive a vehicle after your procedure the rest of the day. Referring Provider: TAYLOR PIERSON [[id number]] Allergies As of Date: 12/08/2024 Noted Allergy Reaction TAPE (ADHESIVE TAPE-SILICONES) 11/03/2019 2 - Rash Date Reviewed: 12/08/2024 Reviewed by: Dalila Harp LPN - Fully Assessed Reason for Visit: Consult [[id number]] Cmt: Consult for Colon cancer screening. Visit Diagnosis:Screening for colon cancer [Z12.11] Order(s):CONSULT TO GENERAL SURGERY [9011] Order #: [id number]: 1 COLONOSCOPY DIAGNOSTIC [GI11] Order #: [id number] FUTURE peg 3350-Electrolytes (GOLYTELY) 236-22.74-6.74 -5.86 gram suspensionTake 4,000 mL by mouth one time only for 1 dose. Refer to printed prep instructions from your provider.Disp: 4000 mLRfl: 0 Prescriptions as of 12/08/2024 - peg 3350-Electrolytes (GOLYTELY) 236-22.74-6.74 -5.86 gram suspension Take 4,000 mL by mouth one time only for 1 dose. Refer to printed prep instructions from your provider. - FERREX 150 150 mg iron capsule Take 1 capsule by mouth once daily. - amLODIPine (NORVASC) 10 mg tablet Take 1 tablet by mouth once daily - folic acid 1 mg tablet Take 1 tablet by mouth once daily - carvedilol (COREG) 3.125 mg tablet TAKE 1 TABLET BY MOUTH TWICE DAILY WITH MEALS - SITagliptin phosphate (JANUVIA) 50 mg tablet Take 1 tablet by mouth once daily - atorvastatin (LIPITOR) 80 mg tablet Take 1 tablet by mouth once daily. - ELIQUIS 5 mg tab(s) Take 1 tablet by mouth twice daily - ascorbic acid, vitamin C, (VITAMIN C) 500 mg tablet Take 1 tablet by mouth once daily. - MEDICATION, NON-DATABASE Take 1 tablet by mouth once daily. Stool softner - aspirin, enteric coated (ASPIRIN, ENTERIC COATED) 81 mg EC tablet Take 1 tablet by mouth once daily. Meds Comments as of 08/17/2020: 08/17/20 The medications are managed by this patient by: PATIENT and SPOUSE Loreto Dash Pharmacist Problem List As Of Date 12/08/2024 Noted Resolved Tobacco use disorder [F17.200] 08/31/2005 03/14/2020 UTI (URINARY TRACT INFECTION) [N39.0] 08/31/2005 03/14/2016 Essential hypertension, benign [I10] 08/31/2005 Bradycardia [R00.1] 10/22/2019 Second degree atrioventricular block [I44.1] 10/26/2019 HTN (hypertension) [I10] Type 2 diabetes mellitus with stage 3 chronic k* Presence of cardiac pacemaker [Z95.0] 10/26/2019 Chest tightness [R07.89] 11/08/2019 11/09/2019 Lightheadedness [R42] 11/08/2019 11/09/2019 Dizziness [R42] 11/08/2019 11/09/2019 Neurogenic bladder [N31.9] 11/20/2019 Self-catheterizes urinary bladder [Z78.9] 11/20/2019 Acute congestive heart failure (HCC) [I50.9] 11/20/2019 06/17/2020 Poor high blood pressure control [I10] 12/18/2019 02/12/2021 Stage 3a chronic kidney disease (HCC) [N18.31] 12/31/2019 Unequal blood pressures in paired extremities [*12/31/2019 Paroxysmal atrial fibrillation (HCC) [I48.0] At risk for stroke [Z91.89] Anticoagulant long-term use [Z79.01] Hyperlipidemia, mixed [E78.2] 06/21/2020 Unstable angina (HCC) [I20.0] 07/16/2020 07/18/2020 Bilateral carotid bruits [R09.89] 07/22/2020 Atherosclerosis of [place] artery of extremity w*07/22/2020 Chest pain [R07.9] 07/25/2020 08/15/2020 SOB (shortness of breath) [R06.02] 07/25/2020 Anemia [D64.9] 08/09/2020 Malnutrition of mild degree (HCC) [E44.1] 08/10/2020 02/12/2021 S/P CABG x 2 [Z95.1] 08/11/2020 CKD (chronic kidney disease) Stage 3, GFR 30-59*09/19/2020 Hypertensive kidney disease with stage 3 chroni*02/08/2022 CAD (coronary artery disease) [I25.10] Encounter for care of pacemaker [Z45.018] 04/02/2023 Other instructions from your clinician: COLONOSCOPY BOWEL PREPARATION INSTRUCTIONS GOLYTELY/NULYTELY/TRILYTE/COLYTE Your doctor has scheduled you for a colonoscopy. To have a successful colonoscopy, you must have a clean colon, that is empty. A clean colon allows your doctor to see the entire colon AND diagnose issues like polyps or cancer. For doctors, a clean colon is like driving on a armando day; a dirty colon like driving in a storm. It is very important that you follow these instructions exactly, or your colonoscopy might not be as effective, could be canceled, and you may need to do the bowel prep and the colonoscopy again. TRANSPORTATION REQUIREMENTS You are receiving IV sedation. For your safety, a responsible adult escort must accompany you to and from your procedure: Your adult escort MUST be present with you at check-in for your colonoscopy. Your adult escort MUST remain in the endoscopy area until you are discharged. Your adult escort MUST transport you home once you are discharged. You are NOT allowed to operate any form of transportation (i.e. drive a car, bicycle, etc.) or leave the Endoscopy Center ALONE. It is not safe to do so. If you cannot meet these requirements, your procedure will be canceled. MEDICATION REQUIREMENTS For your safety, certain medications will need to be stopped or adjusted before you can have your procedure: BLOOD THINNERS: If you take blood thinners, such as Coumadin (warfarin), Plavix (clopidogrel), Ticlid (ticlopidine hydrochloride), Agrylin (anagrelide), Xarelto (Rivaroxaban), Pradaxa (Dabigatran), Eliquis (Apixaban), or Effient (Prasugrel), contact the physician who is prescribing these medications at least 2 weeks prior to your procedure to discuss any necessary adjustments. DIABETES: If you take medications for diabetes, your dosage may need to be adjusted. If you are being treated for diabetes with insulin, diabetic pills, or other injectable medications do not take your REGULAR dose after midnight on the day of your procedure. If you are taking any other types of insulin such as Lantus, Humalog, NPH (long-acting insulin), or 70/30 insulin, take half your normal dose the day before your procedure. DIABETES/WEIGHT MANAGEMENT: If you take medications for weight-loss, your dosage may need to be adjusted Contact the doctor who prescribes this medication for further instructions. If you take medications for weight-loss like semaglutide (Ozempic, Wegovy, Rybelsus), dulaglutide (Trulicity), liraglutide (Victoza, Saxenda), exenatide (Byetta, Bydureon), or lixisenatide (Adylyxin), stop your medication 1 week prior to your procedure. If you take medications like canagliflozin (Invokana), dapagliflozin (Farxiga, Forxiga), empagliflozin (Jardiance), stop your medication 3 days prior to your procedure. If you take ertugliflozin (Steglatro) stop your medication 4 days prior to your procedure. IRON: If you take iron pills, STOP them 1 week BEFORE your procedure, may resume after. OTHER MEDS: May take all other medications (including aspirin, antibiotics, water pills / diuretics like Lasix or Metolozone, blood pressure meds, etc.) at their usual scheduled time with a sip of water. DIET REQUIREMENTS The day before your colonoscopy, you may have a clear liquid diet (see below). The day of your colonoscopy, you may continue a clear liquid diet until 4 hours before your colonoscopy. Within 3 hours of your colonoscopy, take only any medications (as above) with a sip of water. Clear Liquid Diet Broth (chicken, beef or vegetable broth or bullion. Just the broth, no solids). Water Coffee or Tea (NO milk or creamer), but sugar and sugar substitutes are allowed. Clear liquids including clear, yellow, green, blue (NO red, ) Sodas / soft drinks Gatorade or other sports drinks Manuel-Aid or flavored drinks Plain Jell-O or other gelatins Fruit juice (strained; no-pulp) Popsicles or hard candy BOWEL PREPARATION (GOLYTELY/NULYTELY/TRILYTE/COLYTE) Split Dosing Bowel Prep: This means drinking your bowel prep in two doses. Split dosing helps clean your colon better and makes it less likely that your procedure will be canceled. Fill your prescription for Golytely/Nulytely/Trilyte/Colyte: The afternoon before your colonoscopy, mix the solution and refrigerate. You may add the flavor pack (if present) that came with the bowel preparation. Do not add ice, sugar, or other flavorings to the solution. You will drink your prep in two doses, by several hours. DRink both halves the day before the procedure Bowel prep can work differently from person to person. Some people's bowels move slowly and they may need different instructions. Please see your doctor in office or virtually for personalized bowel prep instructions if you have: Medical condition that needs special accommodations Had a poor bowel prep results or failed bowel prep attempts in the past. Had difficulty with anesthesia during the procedure. FREQUENTLY ASKED QUESTIONS Q: What if I suffer from constipation? A: Recommend taking extra laxatives to resolve your constipation days prior to entering the bowel prep day. Q: What if have had prior poor preps results in past? A: Contact your physician as you will likely need additional bowel prep instructions. Q: What if I have motility issues like Parkinson's, MS (multiple sclerosis), wheelchair dependent, etc.? or on medications that slow bowel emptying (narcotics, gabapentin, anticholinergic medications etc.) A: Contact your physician as you will likely need extra time and additional laxatives to complete your bowel prep. Q: What if I cannot drink large volume of liquid? A: Start your prep 2-3 hours earlier to allow yourself more time to complete the entire prep. Q: What if I can't finish my bowel prep? A: If you cannot finish your entire bowel prep, it is likely that your colonoscopy will need to be rescheduled due to poor prep quality. Q: What if I had bariatric surgery? Do I still have to complete the entire prep? A: Yes, gastric bypass surgery involves the stomach AND small bowel. You may need to drink smaller amounts, slower (may need more time to complete your bowel prep). Gastric bypass does not alter the length of your colon so you will need to complete the entire bowel prep, it may just take longer time to complete it. Q: What if I am on dialysis? A: Please consult your chopper feeder prior to scheduling to get instructions pertinent to you. In general, dialysis patients take the Golytely bowel prep and have the procedure same day of their dialysis (colonoscopy in AM, dialysis in PM). Q: How do I know if something is considered as clear liquid diet? A: If you can pour it in a glass and you can see through it, it is considered "clear liquid" Q: Can I eat nuts, seeds, beans, popcorn, dried fruits, vegetables AND fruits that have skin peel? A: No, you will need to not eat these items starting 5 days prior to procedure. Q: Can I take Uber/Lyft/taxi/bus home? A: An adult MUST be present with you at check-in for your colonoscopy and remain in the endoscopy area until you are discharged. You can take Uber home only if this adult escort is with you at check in, remain in the endoscopy area until you are discharged, and takes the Uber with you to home. Q: Can I ?sleep it off? here and drive myself home? A: No, you must have an adult with you at time of procedure check in, remain in the endoscopy center during your procedure, and drive you home. You cannot drive a vehicle after your procedure the rest of the day. Prescriptions ordered this encounter Disp Refills Start End PEG 3350-ELECTROLYTES 236 GRAM-22.74* 4000* 0 12/08/2024 12/08/2024 Route: PO Sig: Take 4,000 mL by mouth one time only for 1 dose. Refer to printed prep instructions from your provider. Letter Text Letter Text Encounter Status:Closed by KAJAL REMY on 12/08/24 PROGRESS Observed: 12/01/2024 11:25 AM Status: COMPLETED Source: [facility] HNO ID: [id number] Author: TAYLOR PIERSON APRN.GENERAL EDUCATION INSTRUCTOR Service: ? Author Type: Nurse Practitioner Type: Progress Notes Filed: 12/02/2024 08:31 Note Text: CHIEF COMPLAINT: Sharon Mejia is a 74-year-old male with a history of HTN, DM, and pacemaker placement, presenting for follow-up. I reviewed past medical, surgical, social, and family histories today and updated chart. Allergies, chronic medications, and supplements were also reviewed. Recording using Clarivoy software for draft documentation of the visit was discussed with the patient/authorized medical claims representative; all questions welcomed and answered. Patient/authorized medical claims representative agreed to proceed Hypertension: - Recent BP readings: 144/82 mmHg (right arm), 124/76 mmHg (left arm). - Undergoing carotid ultrasound and echocardiogram on the or , ordered by cardiology Diabetes Mellitus: - Recent A1c: 6.4%. - Blood glucose levels consistently <130 mg/dL. - Previously elevated urinalbumin creatinine levels. - Recent eye exam completed. - Denies urinary issues. Pacemaker: - Pacemaker setting adjusted from 60 to 70 bpm. - Under the care of cardiology/EP - Denies chest pain, dyspnea, dizziness, or edema. Colorectal Cancer Screening: - Last Cologuard test in 2021, negative. - Previous positive fecal occult blood test in 2020. - No GI issues or hematochezia. PAST MEDICAL HISTORY Diagnosis Date Anticoagulant long-term use At risk for stroke Bradycardia 10/22/2019 CAD (coronary artery disease) CKD (chronic kidney disease) stage 2, GFR 60-89 ml/min Congenital absence of one kidney Controlled type 2 diabetes mellitus without complication, without long-term current use of insulin (HCC) Diabetes (HCC) HTN (hypertension) Mixed hyperlipidemia Paroxysmal atrial fibrillation (HCC) Poor high blood pressure control 12/18/2019 Presence of cardiac pacemaker 10/26/2019 [employer] dual-chamber pacemaker 10/26/2019; indication: symptomatic bradycardia due to second-degree AV block; MRI conditional after 6 weeks post implant Second degree atrioventricular block 10/26/2019 Tobacco use disorder 08/31/2005 PAST SURGICAL HISTORY Procedure Laterality Date BASIC PACEMAKER DUAL CHAMBER Left 10/26/2019 [employer] dual-chamber pacemaker; indication: symptomatic bradycardia due to second-degree AV block; MRI conditional after 6 weeks post implant; ERIKG Dr. Robles CABG (2) VEIN GRAFTS AND ARTERIAL GRAFT(S 08/09/2020 LEFT HEART CATH,PERCUTANEOUS 07/17/2020 UNLISTED PROCEDURE HUMERUS/ELBOW Left 1956 Social History Tobacco Use Smoking status: Former Current packs/day: 0.00 Average packs/day: 0.5 packs/day for 40.0 years (20.0 ttl pk-yrs) Types: Cigarettes Start date: 08/25/1965 Quit date: 08/25/2005 Years since quittin.2 Smokeless tobacco: Never Vaping Use Vaping status: Never Used Substance Use Topics Alcohol use: Not Currently Drug use: Never ALLERGIES Allergen Reactions Tape [Adhesive Tape* Rash Family History Problem Relation Age of Onset other (pacemaker) Brother Diabetes Mother Hypertension Mother Stroke Father Heart disease Brother PCI Current Outpatient Medications Medication Sig Dispense Refill amLODIPine (NORVASC) 10 mg tablet Take 1 tablet by mouth once daily 90 tablet 3 folic acid 1 mg tablet Take 1 tablet by mouth once daily 90 tablet 3 carvedilol (COREG) 3.125 mg tablet TAKE 1 TABLET BY MOUTH TWICE DAILY WITH MEALS 180 tablet 3 SITagliptin phosphate (JANUVIA) 50 mg tablet Take 1 tablet by mouth once daily 90 tablet 1 atorvastatin (LIPITOR) 80 mg tablet Take 1 tablet by mouth once daily. 90 tablet 3 ELIQUIS 5 mg tab(s) Take 1 tablet by mouth twice daily 60 tablet 11 ascorbic acid, vitamin C, (VITAMIN C) 500 mg tablet Take 1 tablet by mouth once daily. 90 tablet 1 MEDICATION, NON-DATABASE Take 1 tablet by mouth once daily. Stool softner aspirin, enteric coated (ASPIRIN, ENTERIC COATED) 81 mg EC tablet Take 1 tablet by mouth once daily. 30 tablet 11 FERREX 150 150 mg iron capsule Take 1 capsule by mouth once daily. 90 capsule 3 No current facility-administered medications for this visit. Review of Systems Cardiovascular: (-) chest pain, (-) peripheral edema Respiratory: (-) shortness of breath Gastrointestinal: (-) abdominal pain, (-) hematochezia Genitourinary: (-) urinary symptoms Neurological: (-) dizziness BP 122/74 Pulse 70 Temp (Src) 97.8 (Oral) Resp 18 Ht 5' 10" (1.78m) Wt 157 lb (71.2kg) SpO2 98% BMI 22.53 kg/(m2). Physical Exam GENERAL: NAD, alert and oriented. SKIN: Unremarkable, no rash or skin lesions. HEAD: Normocephalic. EYES: PERRLA, EOMI, conjunctiva clear. OROPHARYNX: Lips, mucosa, and tongue normal, good dentition. No oral lesions noted. NECK: Supple, no lymphadenopathy, normal thyroid, no carotid bruits. LUNGS: Clear to auscultation bilaterally, no wheezes/rhonchi/rales. HEART: Regular rate and rhythm, no murmurs. No ectopy. EXTREMITIES: No skin discoloration, no edema. NEURO: Awake, alert and oriented x 3 Office Visit on 12/01/2024 Component Date Value Ref Range Status Hemoglobin A1C (POCT) 12/01/2024 6.4 (A) 4.3 - 5.6 % Final Comment: Location:[facility], [address] [place] [address], [phone] Point of care (POC) Hemoglobin A1c (HGBA1C) testing is intended to assess glucose control and provide a management tool for patients known to have diabetes and their healthcare providers. Target HGBA1C levels may depend on specific clinical circumstances. POC HGBA1C is not intended for use as a diagnostic or screening test; laboratory-based testing should be used for diagnostic purposes. The following information is supplemental and may not be applicable to specific diabetes management situations: The POC device bessemer converter blower provides a normal range of 4.2% to 6.5% for the HGBA1C POC test. However, the [place] [employer] guidelines indicate that patients with HGBA1C in the range of 5.7% to 6.4% are at increased risk for development of diabetes and that intervention by lifestyle modification may be beneficial. A HGBA1C level greater than or equal to 6.5% is considered diagnostic of diabetes, pending confirmatory testing. Use of HGBA1C testing to evaluate glucose control may not be appropriate for patients with hemoglobin variants or other conditions (e.g. anemia) that alter red blood cell lifespan. Labs: (2021) Cologuard: Negative (2020) Fecal Occult Blood Test: Positive A1c: 6.4 A1c: 6.5 Urinalbumin creatinine: Elevated ASSESSMENT/PLAN: 1. Type 2 diabetes mellitus with stage 3 chronic kidney disease, without long-term current use of insulin, unspecified whether stage 3a or 3b CKD (HCC) (E11.22) 2. Stage 3 chronic kidney disease, unspecified whether stage 3a or 3b CKD (HCC) (N18.30) - Hemoglobin A1c is 6.4%, indicating well-controlled diabetes. - Blood glucose levels consistently below 130 mg/dL. - Ordered urinalysis to recheck urine osruhdb-an-sapeqofeiq ratio due to previous elevation. 3. Anemia, unspecified type (D64.9) - On iron replacement therapy. 4. Hypertension, essential (I10) - Blood pressure readings: 144/82 mmHg in the right arm and 124/76 mmHg in the left arm. - Noted consistent higher readings in the left arm - Continue monitoring blood pressure, preferentially using the right arm for more accurate readings. 5. Paroxysmal atrial fibrillation (HCC) (I48.0) 6. Anticoagulant long-term use (Z79.01) 7. Presence of cardiac pacemaker (Z95.0) - No new episodes of chest pain, dyspnea, dizziness, or edema. - Recent follow-up with senior scientist Dr. Robles; pacemaker settings adjusted from 60 to 70 bpm. - Scheduled for echocardiogram and carotid artery ultrasound on the or . - Continue current anticoagulation therapy. 8. Hyperlipidemia, mixed (E78.2) - Recent lipid panel ordered by senior scientist. 9. Screening for colon cancer (Z12.11) - Discussed benefits of colonoscopy vs. Cologuard test. - Referred to Dr. Kajal Remy for consultation and scheduling of colonoscopy. 10. Screening for prostate cancer (Z12.5) - Ordered PSA test to be done concurrently with other lab work. New medication(s) prescribed today: None. Counseling completed in adopting health behaviors such as avoiding excessive alcohol use, avoid tobacco use, improve nutrition, and engage in physical activities. Copy of written care plan, clinical summary, treatment plan, new medications, goals, and self management requirements were given to patient. Taylor Pierson APRN.GENERAL EDUCATION INSTRUCTOR CNOV Observed: 12/01/2024 11:20 AM Status: COMPLETED Source: [facility] Office Visit ([place]) SHARON MEJIA ([id number]) 1950 M Date Time Provider Department 12/01/24 11:20 AM TAYLOR PIERSON During your visit today, we recorded the following information about you: Temperature Pulse Respiration Blood pressure 97.8 degrees 70/minute 18/minute 122/74 Weight Height 71.2 kg 1.778 m Taylor Pierson APRN.GENERAL EDUCATION INSTRUCTOR 12/02/2024 8:31 AM Signed CHIEF COMPLAINT: Sharon Mejia is a 74-year-old male with a history of HTN, DM, and pacemaker placement, presenting for follow-up. I reviewed past medical, surgical, social, and family histories today and updated chart. Allergies, chronic medications, and supplements were also reviewed. Recording using Clarivoy software for draft documentation of the visit was discussed with the patient/authorized medical claims representative; all questions welcomed and answered. Patient/authorized medical claims representative agreed to proceed Hypertension: - Recent BP readings: 144/82 mmHg (right arm), 124/76 mmHg (left arm). - Undergoing carotid ultrasound and echocardiogram on the or , ordered by cardiology Diabetes Mellitus: - Recent A1c: 6.4%. - Blood glucose levels consistently <130 mg/dL. - Previously elevated urinalbumin creatinine levels. - Recent eye exam completed. - Denies urinary issues. Pacemaker: - Pacemaker setting adjusted from 60 to 70 bpm. - Under the care of cardiology/EP - Denies chest pain, dyspnea, dizziness, or edema. Colorectal Cancer Screening: - Last Cologuard test in 2021, negative. - Previous positive fecal occult blood test in 2020. - No GI issues or hematochezia. PAST MEDICAL HISTORY Diagnosis Date Anticoagulant long-term use At risk for stroke Bradycardia 10/22/2019 CAD (coronary artery disease) CKD (chronic kidney disease) stage 2, GFR 60-89 ml/min Congenital absence of one kidney Controlled type 2 diabetes mellitus without complication, without long-term current use of insulin (HCC) Diabetes (HCC) HTN (hypertension) Mixed hyperlipidemia Paroxysmal atrial fibrillation (HCC) Poor high blood pressure control 12/18/2019 Presence of cardiac pacemaker 10/26/2019 [employer] dual-chamber pacemaker 10/26/2019; indication: symptomatic bradycardia due to second-degree AV block; MRI conditional after 6 weeks post implant Second degree atrioventricular block 10/26/2019 Tobacco use disorder 08/31/2005 PAST SURGICAL HISTORY Procedure Laterality Date BASIC PACEMAKER DUAL CHAMBER Left 10/26/2019 [employer] dual-chamber pacemaker; indication: symptomatic bradycardia due to second-degree AV block; MRI conditional after 6 weeks post implant; CCAG Dr. Robles CABG (2) VEIN GRAFTS AND ARTERIAL GRAFT(S 08/09/2020 LEFT HEART CATH,PERCUTANEOUS 07/17/2020 UNLISTED PROCEDURE HUMERUS/ELBOW Left 1956 Social History Tobacco Use Smoking status: Former Current packs/day: 0.00 Average packs/day: 0.5 packs/day for 40.0 years (20.0 ttl pk-yrs) Types: Cigarettes Start date: 08/25/1965 Quit date: 08/25/2005 Years since quittin.2 Smokeless tobacco: Never Vaping Use Vaping status: Never Used Substance Use Topics Alcohol use: Not Currently Drug use: Never ALLERGIES Allergen Reactions Tape [Adhesive Tape* Rash Family History Problem Relation Age of Onset other (pacemaker) Brother Diabetes Mother Hypertension Mother Stroke Father Heart disease Brother PCI Current Outpatient Medications Medication Sig Dispense Refill amLODIPine (NORVASC) 10 mg tablet Take 1 tablet by mouth once daily 90 tablet 3 folic acid 1 mg tablet Take 1 tablet by mouth once daily 90 tablet 3 carvedilol (COREG) 3.125 mg tablet TAKE 1 TABLET BY MOUTH TWICE DAILY WITH MEALS 180 tablet 3 SITagliptin phosphate (JANUVIA) 50 mg tablet Take 1 tablet by mouth once daily 90 tablet 1 atorvastatin (LIPITOR) 80 mg tablet Take 1 tablet by mouth once daily. 90 tablet 3 ELIQUIS 5 mg tab(s) Take 1 tablet by mouth twice daily 60 tablet 11 ascorbic acid, vitamin C, (VITAMIN C) 500 mg tablet Take 1 tablet by mouth once daily. 90 tablet 1 MEDICATION, NON-DATABASE Take 1 tablet by mouth once daily. Stool softner aspirin, enteric coated (ASPIRIN, ENTERIC COATED) 81 mg EC tablet Take 1 tablet by mouth once daily. 30 tablet 11 FERREX 150 150 mg iron capsule Take 1 capsule by mouth once daily. 90 capsule 3 No current facility-administered medications for this visit. Review of Systems Cardiovascular: (-) chest pain, (-) peripheral edema Respiratory: (-) shortness of breath Gastrointestinal: (-) abdominal pain, (-) hematochezia Genitourinary: (-) urinary symptoms Neurological: (-) dizziness BP 122/74 Pulse 70 Temp (Src) 97.8 (Oral) Resp 18 Ht 5' 10" (1.78m) Wt 157 lb (71.2kg) SpO2 98% BMI 22.53 kg/(m2). Physical Exam GENERAL: NAD, alert and oriented. SKIN: Unremarkable, no rash or skin lesions. HEAD: Normocephalic. EYES: PERRLA, EOMI, conjunctiva clear. OROPHARYNX: Lips, mucosa, and tongue normal, good dentition. No oral lesions noted. NECK: Supple, no lymphadenopathy, normal thyroid, no carotid bruits. LUNGS: Clear to auscultation bilaterally, no wheezes/rhonchi/rales. HEART: Regular rate and rhythm, no murmurs. No ectopy. EXTREMITIES: No skin discoloration, no edema. NEURO: Awake, alert and oriented x 3 Office Visit on 12/01/2024 Component Date Value Ref Range Status Hemoglobin A1C (POCT) 12/01/2024 6.4 (A) 4.3 - 5.6 % Final Comment: Location:[facility], [address] [place] [address], [phone] Point of care (POC) Hemoglobin A1c (HGBA1C) testing is intended to assess glucose control and provide a management tool for patients known to have diabetes and their healthcare providers. Target HGBA1C levels may depend on specific clinical circumstances. POC HGBA1C is not intended for use as a diagnostic or screening test; laboratory-based testing should be used for diagnostic purposes. The following information is supplemental and may not be applicable to specific diabetes management situations: The POC device bessemer converter blower provides a normal range of 4.2% to 6.5% for the HGBA1C POC test. However, the [place] [employer] guidelines indicate that patients with HGBA1C in the range of 5.7% to 6.4% are at increased risk for development of diabetes and that intervention by lifestyle modification may be beneficial. A HGBA1C level greater than or equal to 6.5% is considered diagnostic of diabetes, pending confirmatory testing. Use of HGBA1C testing to evaluate glucose control may not be appropriate for patients with hemoglobin variants or other conditions (e.g. anemia) that alter red blood cell lifespan. Labs: (2021) Cologuard: Negative (2020) Fecal Occult Blood Test: Positive A1c: 6.4 A1c: 6.5 Urinalbumin creatinine: Elevated ASSESSMENT/PLAN: 1. Type 2 diabetes mellitus with stage 3 chronic kidney disease, without long-term current use of insulin, unspecified whether stage 3a or 3b CKD (HCC) (E11.22) 2. Stage 3 chronic kidney disease, unspecified whether stage 3a or 3b CKD (HCC) (N18.30) - Hemoglobin A1c is 6.4%, indicating well-controlled diabetes. - Blood glucose levels consistently below 130 mg/dL. - Ordered urinalysis to recheck urine ndkirfc-wd-jasioegoma ratio due to previous elevation. 3. Anemia, unspecified type (D64.9) - On iron replacement therapy. 4. Hypertension, essential (I10) - Blood pressure readings: 144/82 mmHg in the right arm and 124/76 mmHg in the left arm. - Noted consistent higher readings in the left arm - Continue monitoring blood pressure, preferentially using the right arm for more accurate readings. 5. Paroxysmal atrial fibrillation (HCC) (I48.0) 6. Anticoagulant long-term use (Z79.01) 7. Presence of cardiac pacemaker (Z95.0) - No new episodes of chest pain, dyspnea, dizziness, or edema. - Recent follow-up with senior scientist Dr. Robles; pacemaker settings adjusted from 60 to 70 bpm. - Scheduled for echocardiogram and carotid artery ultrasound on the or . - Continue current anticoagulation therapy. 8. Hyperlipidemia, mixed (E78.2) - Recent lipid panel ordered by senior scientist. 9. Screening for colon cancer (Z12.11) - Discussed benefits of colonoscopy vs. Cologuard test. - Referred to Dr. Kajal Remy for consultation and scheduling of colonoscopy. 10. Screening for prostate cancer (Z12.5) - Ordered PSA test to be done concurrently with other lab work. New medication(s) prescribed today: None. Counseling completed in adopting health behaviors such as avoiding excessive alcohol use, avoid tobacco use, improve nutrition, and engage in physical activities. Copy of written care plan, clinical summary, treatment plan, new medications, goals, and self management requirements were given to patient. Taylor Pierson APRN.ASHA Referring Provider: SELF [200] Allergies As of Date: 12/01/2024 Noted Allergy Reaction TAPE (ADHESIVE TAPE-SILICONES) 11/03/2019 2 - Rash Date Reviewed: 12/01/2024 Reviewed by: Taylor Pierson APRN.GENERAL EDUCATION INSTRUCTOR - Fully Assessed Reason for Visit: F/U HTN 6 Month [448] F/U Diabetes 6 Month [446] Primary Visit Diagnosis:Type 2 diabetes mellitus with stage 3 chronic kidney disease, without long-term current use of insulin, unspecified whether stage 3a or 3b CKD (HCC) [E11.22, N18.30] Other Visit Diagnoses:Anemia, unspecified type [D64.9] Hypertension, essential [I10] Paroxysmal atrial fibrillation (HCC) [I48.0] Anticoagulant long-term use [Z79.01] Presence of cardiac pacemaker [Z95.0] Hyperlipidemia, mixed [E78.2] Stage 3 chronic kidney disease, unspecified whether stage 3a or 3b CKD (HCC) [N18.30] Screening for colon cancer [Z12.11] Screening for prostate cancer [Z12.5] Order(s):HEMOGLOBIN A1C (POC) [2349778] Order #: [id number]. #:[id number] FERREX 150 150 mg iron capsuleTake 1 capsule by mouth once daily.Disp: 90 capsuleRfl: 3 ALBUMIN/CREATININE RATIO, URINE [SQUACR] Order #: [id number] FUTURE CONSULT TO GENERAL SURGERY [90] Order #: [id number]: 1 FUTURE PSA/PROSTATE SPECIFIC ANTIGEN SCREENING [SQPSAS1] Order #: [id number] FUTURE Prescriptions as of 12/02/2024 - FERREX 150 150 mg iron capsule Take 1 capsule by mouth once daily. - amLODIPine (NORVASC) 10 mg tablet Take 1 tablet by mouth once daily - folic acid 1 mg tablet Take 1 tablet by mouth once daily - carvedilol (COREG) 3.125 mg tablet TAKE 1 TABLET BY MOUTH TWICE DAILY WITH MEALS - SITagliptin phosphate (JANUVIA) 50 mg tablet Take 1 tablet by mouth once daily - atorvastatin (LIPITOR) 80 mg tablet Take 1 tablet by mouth once daily. - ELIQUIS 5 mg tab(s) Take 1 tablet by mouth twice daily - ascorbic acid, vitamin C, (VITAMIN C) 500 mg tablet Take 1 tablet by mouth once daily. - MEDICATION, NON-DATABASE Take 1 tablet by mouth once daily. Stool softner - aspirin, enteric coated (ASPIRIN, ENTERIC COATED) 81 mg EC tablet Take 1 tablet by mouth once daily. Meds Comments as of 08/17/2020: 08/17/20 The medications are managed by this patient by: PATIENT and SPOUSE Loreto Dash Pharmacist Problem List As Of Date 12/01/2024 Noted Resolved Tobacco use disorder [F17.200] 08/31/2005 03/14/2020 UTI (URINARY TRACT INFECTION) [N39.0] 08/31/2005 03/14/2016 Essential hypertension, benign [I10] 08/31/2005 Bradycardia [R00.1] 10/22/2019 Second degree atrioventricular block [I44.1] 10/26/2019 HTN (hypertension) [I10] Type 2 diabetes mellitus with stage 3 chronic k* Presence of cardiac pacemaker [Z95.0] 10/26/2019 Chest tightness [R07.89] 11/08/2019 11/09/2019 Lightheadedness [R42] 11/08/2019 11/09/2019 Dizziness [R42] 11/08/2019 11/09/2019 Neurogenic bladder [N31.9] 11/20/2019 Self-catheterizes urinary bladder [Z78.9] 11/20/2019 Acute congestive heart failure (HCC) [I50.9] 11/20/2019 06/17/2020 Poor high blood pressure control [I10] 12/18/2019 02/12/2021 Stage 3a chronic kidney disease (HCC) [N18.31] 12/31/2019 Unequal blood pressures in paired extremities [*12/31/2019 Paroxysmal atrial fibrillation (HCC) [I48.0] At risk for stroke [Z91.89] Anticoagulant long-term use [Z79.01] Hyperlipidemia, mixed [E78.2] 06/21/2020 Unstable angina (HCC) [I20.0] 07/16/2020 07/18/2020 Bilateral carotid bruits [R09.89] 07/22/2020 Atherosclerosis of [place] artery of extremity w*07/22/2020 Chest pain [R07.9] 07/25/2020 08/15/2020 SOB (shortness of breath) [R06.02] 07/25/2020 Anemia [D64.9] 08/09/2020 Malnutrition of mild degree (HCC) [E44.1] 08/10/2020 02/12/2021 S/P CABG x 2 [Z95.1] 08/11/2020 CKD (chronic kidney disease) Stage 3, GFR 30-59*09/19/2020 Hypertensive kidney disease with stage 3 chroni*02/08/2022 CAD (coronary artery disease) [I25.10] Encounter for care of pacemaker [Z45.018] 04/02/2023 Prescriptions ordered this encounter Disp Refills Start End FERREX 150 MG IRON CAPSULE 90 c* 3 12/01/2024 Route: PO Sig: Take 1 capsule by mouth once daily. Medications Discontinued During This Encounter Prescriptions - FERREX 150 150 mg iron capsule (Discontinued) Take 1 capsule by mouth once daily Disposition: Return in about 6 months (around 06/07/2025) for DM follow-up, Hyperlipidemia, HTN follow-up. Follow-up and Disposition History for Encounter Date Provider Department Center 12/01/2024 [id number]-ODOMQLTAYLOR PIERSON AGFAMPLE Ag [address] [facility] Encounter Status:Closed by TAYLOR PIERSON on 12/02/24 CNOV Observed: 11/09/2024 9:40 AM Status: COMPLETED Source: [facility] Office Visit (BEL) SHARON MEJIA ([id number]) 1950 M Date Time Provider Department 11/09/24 9:40 AM JAKOB ROBLES During your visit today, we recorded the following information about you: Pulse Blood pressure Weight Height 70/minute 171/65 73 kg 1.778 m Jakob Robles MD 11/09/2024 12:16 PM Signed [facility] Cardiology ([address]) [address] [facility] [id number] OUTPATIENT VISIT DATE 11/04/2024 PRIMARY CARE PHYSICIAN: Taylor Pierson [address] [place] [id number] CHIEF COMPLAINT: Establish new cardiology follow-up HISTORY OF PRESENT ILLNESS: Mr. Mejia is a 74 year old gentleman with history of coronary artery disease prior coronary bypass grafting, paroxysmal atrial fibrillation, pacemaker placement for symptomatic bradycardia, hypertension, dyslipidemia, and carotid artery disease who presents to establish new cardiology follow-up. Patient has not seen a senior scientist in a few years. He does follow-up routinely with electrophysiology, Dr. Robles. He reports only 1 episode of chest pain that occurred a few months ago when he was moving heavy rocks. He developed a burning feeling in his chest had to sit and rest. This was consistent with his prior anginal equivalent. He has not had recurrent symptoms since that episode. He denies palpitations, lightheadedness, dizziness, or syncope. He has not had symptoms concerning for congestive heart failure or extremity edema. PAST MEDICAL HISTORY Diagnosis Date Anticoagulant long-term use At risk for stroke Bradycardia 10/22/2019 CAD (coronary artery disease) CKD (chronic kidney disease) stage 2, GFR 60-89 ml/min Congenital absence of one kidney Controlled type 2 diabetes mellitus without complication, without long-term current use of insulin (HCC) Diabetes (HCC) HTN (hypertension) Mixed hyperlipidemia Paroxysmal atrial fibrillation (HCC) Poor high blood pressure control 12/18/2019 Presence of cardiac pacemaker 10/26/2019 [employer] dual-chamber pacemaker 10/26/2019; indication: symptomatic bradycardia due to second-degree AV block; MRI conditional after 6 weeks post implant Second degree atrioventricular block 10/26/2019 Tobacco use disorder 08/31/2005 PAST SURGICAL HISTORY Procedure Laterality Date BASIC PACEMAKER DUAL CHAMBER Left 10/26/2019 [employer] dual-chamber pacemaker; indication: symptomatic bradycardia due to second-degree AV block; MRI conditional after 6 weeks post implant; CCAG Dr. Robles CABG (2) VEIN GRAFTS AND ARTERIAL GRAFT(S 08/09/2020 LEFT HEART CATH,PERCUTANEOUS 07/17/2020 UNLISTED PROCEDURE HUMERUS/ELBOW Left 1956 SOCIAL HISTORY Social History Tobacco Use Smoking status: Former Current packs/day: 0.00 Average packs/day: 0.5 packs/day for 40.0 years (20.0 ttl pk-yrs) Types: Cigarettes Start date: 08/25/1965 Quit date: 08/25/2005 Years since quittin.2 Smokeless tobacco: Never Vaping Use Vaping status: Never Used Substance Use Topics Alcohol use: No Drug use: No FAMILY HISTORY Problem Relation Age of Onset other (pacemaker) Brother Diabetes Mother Hypertension Mother Stroke Father Heart disease Brother PCI ALLERGIES: ALLERGIES Allergen Reactions Tape [Adhesive Tape* Rash MEDICATIONS: SITagliptin phosphate (JANUVIA) 50 mg tablet Take 1 tablet by mouth once daily FERREX 150 150 mg iron capsule Take 1 capsule by mouth once daily atorvastatin (LIPITOR) 80 mg tablet Take 1 tablet by mouth once daily. amLODIPine (NORVASC) 10 mg tablet Take 1 tablet by mouth once daily folic acid 1 mg tablet Take 1 tablet by mouth once daily carvedilol (COREG) 3.125 mg tablet TAKE 1 TABLET BY MOUTH TWICE DAILY WITH MEALS ELIQUIS 5 mg tab(s) Take 1 tablet by mouth twice daily ascorbic acid, vitamin C, (VITAMIN C) 500 mg tablet Take 1 tablet by mouth once daily. MEDICATION, NON-DATABASE Take 1 tablet by mouth once daily. Stool softner aspirin, enteric coated (ASPIRIN, ENTERIC COATED) 81 mg EC tablet Take 1 tablet by mouth once daily. REVIEW OF SYSTEMS: Review of Systems Constitutional: Negative for chills, fever, malaise/fatigue and weight loss. HENT: Negative for hearing loss and sore throat. Eyes: Negative for blurred vision and double vision. Respiratory: Negative. Cardiovascular: Negative. Gastrointestinal: Negative. Genitourinary: Negative for dysuria, frequency, hematuria and urgency. Musculoskeletal: Negative. Skin: Negative. Neurological: Negative for dizziness, seizures, loss of consciousness, weakness and headaches. Endo/Heme/Allergies: Negative for environmental allergies. Does not bruise/bleed easily. Psychiatric/Behavioral: Negative for depression. PHYSICAL EXAMINATION: BP 171/65 Pulse 70 Ht 5' 10" (1.78m) Wt 161 lb (73.0kg) SpO2 98% BMI 23.10 kg/(m2). CARDIOVASCULAR MEDICINE TESTING: General: Pleasant gentleman sitting appears comfortable no apparent distress. He is alert and oriented x 3 HEENT: Carotid upstrokes are brisk without bruits no JVD appreciated. Pulmonary: Lungs are clear no rales, wheezes, rhonchi Cardiovascular: Normal S1, S2 with regular rate and rhythm. No murmurs, rubs, or gallops Extremities: Warm, well-perfused, no lower extremity edema distal pulses Cardiac catheterization 07/17/2020: 07/17/2019 21-70% LAD at life diagonal 1 bifurcation, moderate to severe disease in the OM 1, mild diffuse disease in the RCA distribution 1. Normal left main coronary artery. 2. 70% stenosis in the left anterior descending coronary artery, at the bifurcating sub-millimeter diagonal coronary artery with severe diffuse disease involving its ostium, best managed by medical therapy. 3. Moderate diffuse disease in the proximal segment of a non-dominant left circumflex coronary artery; there is several ostial disease involving the bifurcating large obtuse marginal coronary artery. 4. Mild diffuse disease in a dominant right coronary artery. Echocardiogram 07/18/2020: - The abnormal regional wall motion pattern in conjunction with normal regional wall thickness is consistent with a LBBB abnormal conduction delay. - The left ventricle is normal in size. There is left ventricular hypertrophy. Left ventricular systolic function is normal. EF = 58 ? 5% (2D biplane) Indeterminate left ventricular diastolic dysfunction due to pacing. - The right ventricle is normal in size. Right ventricular systolic function is normal. Tricuspid annular displacement is 2.2 cm. - There is a small pericardial effusion ( 0.6 cm adjacent to the left ventricle, 1.0 cm adjacent to the right atrium). - Exam was compared with the prior echocardiographic exam performed on 10/23/19. Carotid Ultrasound 08/04/2020: IMPRESSION Technically difficult exam due to shadowing from calcified arteries. RIGHT SIDE Common carotid artery: Patent. Internal carotid artery: 60-79% stenosis. External carotid artery: Elevated velocities and plaque noted. Vertebral artery: Patent and antegrade flow noted. LEFT SIDE Common carotid artery: Plaque visualized without evidence of hemodynamically significant stenosis. Internal carotid artery: 60-79% stenosis. External carotid artery: Elevated velocities and plaque noted. Vertebral artery: Not visualized. Normal Remote: With Events 10/29/2024: * Normal Device Function * Events or Alerts: 25 AT/AF episodes since last remote * Battery: Battery is at 76%, 4.00 yrs * Sensing and impedances reviewed * Programmed parameters reviewed * Presenting rhythm AV sequential paced @ 60 ppm * Heart Rate Histograms reviewed Tachycardia: AT * Stored EGMs are consistent with or suggestive of Atrial Tachycardia/Atrial flutter * AT [place]: 69% * Total number of episodes: 25, longest episode 13 hrs, 12 min in duration Coronary artery bypass grafting 08/09/2020-BLANC to the LAD, saphenous vein graft to the OM1, ligation left atrial appendage with atricure clip Dr. Celis IMPRESSION: Mr. Mejia is a 74 year old gentleman with history of coronary artery disease prior coronary bypass grafting August 2020 (BLANC-LAD, SVG-OM1) with ligation of left atrial appendage, hypertension, dyslipidemia, atrial fibrillation, pacemaker placement due to symptomatic bradycardia and carotid artery disease who presents to the office for follow-up PLAN AND RECOMMENDATIONS: 1. Coronary artery disease involving [place] coronary artery of [place] heart without angina pectoris - ICD9: 414.01, ICD10: I25.10 (primary diagnosis) 1 episode of angina at high levels of exertion. No recurrent symptoms. Recommended continue medical therapy and risk factor modification 2. Paroxysmal atrial fibrillation (HCC) - ICD9: 427.31, ICD10: I48.[address] Robles. He is maintained on Eliquis for stroke risk reduction - ECHO - PERFLUTREN LIPID MICROSPHERES 1.1 MG/ML INJECTION IN NS 10 ML - SODIUM CHLORIDE 0.9 % (FLUSH) INJECTION SYRINGE 3. Essential hypertension, benign - ICD9: 401.1, ICD10: I10 Well-controlled on current regimen 4. Hyperlipidemia, mixed - ICD9: 272.2, ICD10: E78.2 Maintained on atorvastatin 80 mg daily. Repeat fasting blood work and LFTs - LIPID PANEL, FASTING - COMPREHENSIVE METABOLIC PANEL 5. Bilateral carotid bruits - ICD9: 785.9, ICD10: R09.89 No symptoms concerning for TIA or CVA. Recheck carotid ultrasound. Last study was in 2020 at the time of his bypass surgery - US CAROTID ARTERIES [facility] 6. S/P CABG x 2 - ICD9: V45.81, ICD10: Z95.1 MD Travis Shah David Paul, MD 11/09/2024 10:00 AM Signed We are ordering an echocardiogram a carotid ultrasound and fasting blood work Referring Provider: HEDY ROBLES [[id number]] Allergies As of Date: 11/09/2024 Noted Allergy Reaction TAPE (ADHESIVE TAPE-SILICONES) 11/03/2019 2 - Rash Date Reviewed: 11/09/2024 Reviewed by: Jakob Robles MD - Fully Assessed Reason for Visit: New Patient [172] Cmt: CAD Primary Visit Diagnosis:Coronary artery disease involving [place] coronary artery of [place] heart without angina pectoris [I25.10] Other Visit Diagnoses:Paroxysmal atrial fibrillation (HCC) [I48.0] Essential hypertension, benign [I10] Hyperlipidemia, mixed [E78.2] Bilateral carotid bruits [R09.89] S/P CABG x 2 [Z95.1] Order(s):CONSULT TO CARDIOLOGY [9004] Order #: [id number]: 1 LIPID PANEL, FASTING [SQLIPB] Order #: [id number] FUTURE COMPREHENSIVE METABOLIC PANEL [SQCMP] Order #: [id number] FUTURE ECHO [256312] Order #: [id number]: 1 FUTURE US CAROTID ARTERIES [facility] [3600877] Order #: [id number] FUTURE Prescriptions as of 11/09/2024 - SITagliptin phosphate (JANUVIA) 50 mg tablet Take 1 tablet by mouth once daily - FERREX 150 150 mg iron capsule Take 1 capsule by mouth once daily - atorvastatin (LIPITOR) 80 mg tablet Take 1 tablet by mouth once daily. - amLODIPine (NORVASC) 10 mg tablet Take 1 tablet by mouth once daily - folic acid 1 mg tablet Take 1 tablet by mouth once daily - carvedilol (COREG) 3.125 mg tablet TAKE 1 TABLET BY MOUTH TWICE DAILY WITH MEALS - ELIQUIS 5 mg tab(s) Take 1 tablet by mouth twice daily - ascorbic acid, vitamin C, (VITAMIN C) 500 mg tablet Take 1 tablet by mouth once daily. - MEDICATION, NON-DATABASE Take 1 tablet by mouth once daily. Stool softner - aspirin, enteric coated (ASPIRIN, ENTERIC COATED) 81 mg EC tablet Take 1 tablet by mouth once daily. Meds Comments as of 08/17/2020: 08/17/20 The medications are managed by this patient by: PATIENT and SPOUSE Loreto Dash Pharmacist Problem List As Of Date 11/09/2024 Noted Resolved Tobacco use disorder [F17.200] 08/31/2005 03/14/2020 UTI (URINARY TRACT INFECTION) [N39.0] 08/31/2005 03/14/2016 Essential hypertension, benign [I10] 08/31/2005 Bradycardia [R00.1] 10/22/2019 Second degree atrioventricular block [I44.1] 10/26/2019 HTN (hypertension) [I10] Type 2 diabetes mellitus with stage 3 chronic k* Presence of cardiac pacemaker [Z95.0] 10/26/2019 Chest tightness [R07.89] 11/08/2019 11/09/2019 Lightheadedness [R42] 11/08/2019 11/09/2019 Dizziness [R42] 11/08/2019 11/09/2019 Neurogenic bladder [N31.9] 11/20/2019 Self-catheterizes urinary bladder [Z78.9] 11/20/2019 Acute congestive heart failure (HCC) [I50.9] 11/20/2019 06/17/2020 Poor high blood pressure control [I10] 12/18/2019 02/12/2021 Stage 3a chronic kidney disease (HCC) [N18.31] 12/31/2019 Unequal blood pressures in paired extremities [*12/31/2019 Paroxysmal atrial fibrillation (HCC) [I48.0] At risk for stroke [Z91.89] Anticoagulant long-term use [Z79.01] Hyperlipidemia, mixed [E78.2] 06/21/2020 Unstable angina (HCC) [I20.0] 07/16/2020 07/18/2020 Bilateral carotid bruits [R09.89] 07/22/2020 Atherosclerosis of [place] artery of extremity w*07/22/2020 Chest pain [R07.9] 07/25/2020 08/15/2020 SOB (shortness of breath) [R06.02] 07/25/2020 Anemia [D64.9] 08/09/2020 Malnutrition of mild degree (HCC) [E44.1] 08/10/2020 02/12/2021 S/P CABG x 2 [Z95.1] 08/11/2020 CKD (chronic kidney disease) Stage 3, GFR 30-59*09/19/2020 Hypertensive kidney disease with stage 3 chroni*02/08/2022 CAD (coronary artery disease) [I25.10] Encounter for care of pacemaker [Z45.018] 04/02/2023 Other instructions from your clinician: We are ordering an echocardiogram a carotid ultrasound and fasting blood work Disposition: Return in about 6 months (around 05/11/2025). Follow-up and Disposition History for Encounter Date Provider Department Center 11/09/2024 [id number]-VGQOYTIJAKOB ROBLES [facility] Encounter Status:Closed by JAKOB ROBLES on 11/09/24 PROGRESS Observed: 11/09/2024 9:40 AM Status: COMPLETED Source: [facility] ID: [id number] Author: JAKOB ROBLES MD Service: ? Author Type: Physician Type: Progress Notes Filed: 11/09/2024 12:16 Note Text: [facility] Cardiology ([facility]) [address] [facility] [address] OUTPATIENT VISIT DATE 11/04/2024 PRIMARY CARE PHYSICIAN: Taylor Pierson [address] [place] [id number] CHIEF COMPLAINT: Establish new cardiology follow-up HISTORY OF PRESENT ILLNESS: Mr. Mejia is a 74 year old gentleman with history of coronary artery disease prior coronary bypass grafting, paroxysmal atrial fibrillation, pacemaker placement for symptomatic bradycardia, hypertension, dyslipidemia, and carotid artery disease who presents to establish new cardiology follow-up. Patient has not seen a senior scientist in a few years. He does follow-up routinely with electrophysiology, Dr. Rolbes. He reports only 1 episode of chest pain that occurred a few months ago when he was moving heavy rocks. He developed a burning feeling in his chest had to sit and rest. This was consistent with his prior anginal equivalent. He has not had recurrent symptoms since that episode. He denies palpitations, lightheadedness, dizziness, or syncope. He has not had symptoms concerning for congestive heart failure or extremity edema. PAST MEDICAL HISTORY Diagnosis Date Anticoagulant long-term use At risk for stroke Bradycardia 10/22/2019 CAD (coronary artery disease) CKD (chronic kidney disease) stage 2, GFR 60-89 ml/min Congenital absence of one kidney Controlled type 2 diabetes mellitus without complication, without long-term current use of insulin (HCC) Diabetes (HCC) HTN (hypertension) Mixed hyperlipidemia Paroxysmal atrial fibrillation (HCC) Poor high blood pressure control 12/18/2019 Presence of cardiac pacemaker 10/26/2019 [employer] dual-chamber pacemaker 10/26/2019; indication: symptomatic bradycardia due to second-degree AV block; MRI conditional after 6 weeks post implant Second degree atrioventricular block 10/26/2019 Tobacco use disorder 08/31/2005 PAST SURGICAL HISTORY Procedure Laterality Date BASIC PACEMAKER DUAL CHAMBER Left 10/26/2019 [employer] dual-chamber pacemaker; indication: symptomatic bradycardia due to second-degree AV block; MRI conditional after 6 weeks post implant; CCAG Dr. Robles CABG (2) VEIN GRAFTS AND ARTERIAL GRAFT(S 08/09/2020 LEFT HEART CATH,PERCUTANEOUS 07/17/2020 UNLISTED PROCEDURE HUMERUS/ELBOW Left 1956 SOCIAL HISTORY Social History Tobacco Use Smoking status: Former Current packs/day: 0.00 Average packs/day: 0.5 packs/day for 40.0 years (20.0 ttl pk-yrs) Types: Cigarettes Start date: 08/25/1965 Quit date: 08/25/2005 Years since quittin.2 Smokeless tobacco: Never Vaping Use Vaping status: Never Used Substance Use Topics Alcohol use: No Drug use: No FAMILY HISTORY Problem Relation Age of Onset other (pacemaker) Brother Diabetes Mother Hypertension Mother Stroke Father Heart disease Brother PCI ALLERGIES: ALLERGIES Allergen Reactions Tape [Adhesive Tape* Rash MEDICATIONS: SITagliptin phosphate (JANUVIA) 50 mg tablet Take 1 tablet by mouth once daily FERREX 150 150 mg iron capsule Take 1 capsule by mouth once daily atorvastatin (LIPITOR) 80 mg tablet Take 1 tablet by mouth once daily. amLODIPine (NORVASC) 10 mg tablet Take 1 tablet by mouth once daily folic acid 1 mg tablet Take 1 tablet by mouth once daily carvedilol (COREG) 3.125 mg tablet TAKE 1 TABLET BY MOUTH TWICE DAILY WITH MEALS ELIQUIS 5 mg tab(s) Take 1 tablet by mouth twice daily ascorbic acid, vitamin C, (VITAMIN C) 500 mg tablet Take 1 tablet by mouth once daily. MEDICATION, NON-DATABASE Take 1 tablet by mouth once daily. Stool softner aspirin, enteric coated (ASPIRIN, ENTERIC COATED) 81 mg EC tablet Take 1 tablet by mouth once daily. REVIEW OF SYSTEMS: Review of Systems Constitutional: Negative for chills, fever, malaise/fatigue and weight loss. HENT: Negative for hearing loss and sore throat. Eyes: Negative for blurred vision and double vision. Respiratory: Negative. Cardiovascular: Negative. Gastrointestinal: Negative. Genitourinary: Negative for dysuria, frequency, hematuria and urgency. Musculoskeletal: Negative. Skin: Negative. Neurological: Negative for dizziness, seizures, loss of consciousness, weakness and headaches. Endo/Heme/Allergies: Negative for environmental allergies. Does not bruise/bleed easily. Psychiatric/Behavioral: Negative for depression. PHYSICAL EXAMINATION: BP 171/65 Pulse 70 Ht 5' 10" (1.78m) Wt 161 lb (73.0kg) SpO2 98% BMI 23.10 kg/(m2). CARDIOVASCULAR MEDICINE TESTING: General: Pleasant gentleman sitting appears comfortable no apparent distress. He is alert and oriented x 3 HEENT: Carotid upstrokes are brisk without bruits no JVD appreciated. Pulmonary: Lungs are clear no rales, wheezes, rhonchi Cardiovascular: Normal S1, S2 with regular rate and rhythm. No murmurs, rubs, or gallops Extremities: Warm, well-perfused, no lower extremity edema distal pulses Cardiac catheterization 07/17/2020: 07/17/2019 21-70% LAD at life diagonal 1 bifurcation, moderate to severe disease in the OM 1, mild diffuse disease in the RCA distribution 1. Normal left main coronary artery. 2. 70% stenosis in the left anterior descending coronary artery, at the bifurcating sub-millimeter diagonal coronary artery with severe diffuse disease involving its ostium, best managed by medical therapy. 3. Moderate diffuse disease in the proximal segment of a non-dominant left circumflex coronary artery; there is several ostial disease involving the bifurcating large obtuse marginal coronary artery. 4. Mild diffuse disease in a dominant right coronary artery. Echocardiogram 07/18/2020: - The abnormal regional wall motion pattern in conjunction with normal regional wall thickness is consistent with a LBBB abnormal conduction delay. - The left ventricle is normal in size. There is left ventricular hypertrophy. Left ventricular systolic function is normal. EF = 58 ? 5% (2D biplane) Indeterminate left ventricular diastolic dysfunction due to pacing. - The right ventricle is normal in size. Right ventricular systolic function is normal. Tricuspid annular displacement is 2.2 cm. - There is a small pericardial effusion ( 0.6 cm adjacent to the left ventricle, 1.0 cm adjacent to the right atrium). - Exam was compared with the prior echocardiographic exam performed on 10/23/19. Carotid Ultrasound 08/04/2020: IMPRESSION Technically difficult exam due to shadowing from calcified arteries. RIGHT SIDE Common carotid artery: Patent. Internal carotid artery: 60-79% stenosis. External carotid artery: Elevated velocities and plaque noted. Vertebral artery: Patent and antegrade flow noted. LEFT SIDE Common carotid artery: Plaque visualized without evidence of hemodynamically significant stenosis. Internal carotid artery: 60-79% stenosis. External carotid artery: Elevated velocities and plaque noted. Vertebral artery: Not visualized. Normal Remote: With Events 10/29/2024: * Normal Device Function * Events or Alerts: 25 AT/AF episodes since last remote * Battery: Battery is at 76%, 4.00 yrs * Sensing and impedances reviewed * Programmed parameters reviewed * Presenting rhythm AV sequential paced @ 60 ppm * Heart Rate Histograms reviewed Tachycardia: AT * Stored EGMs are consistent with or suggestive of Atrial Tachycardia/Atrial flutter * AT [place]: 69% * Total number of episodes: 25, longest episode 13 hrs, 12 min in duration Coronary artery bypass grafting 08/09/2020-BLANC to the LAD, saphenous vein graft to the OM1, ligation left atrial appendage with atricure clip Dr. Celis IMPRESSION: Mr. Mejia is a 74 year old gentleman with history of coronary artery disease prior coronary bypass grafting August 2020 (BLANC-LAD, SVG-OM1) with ligation of left atrial appendage, hypertension, dyslipidemia, atrial fibrillation, pacemaker placement due to symptomatic bradycardia and carotid artery disease who presents to the office for follow-up PLAN AND RECOMMENDATIONS: 1. Coronary artery disease involving [place] coronary artery of [place] heart without angina pectoris - ICD9: 414.01, ICD10: I25.10 (primary diagnosis) 1 episode of angina at high levels of exertion. No recurrent symptoms. Recommended continue medical therapy and risk factor modification 2. Paroxysmal atrial fibrillation (HCC) - ICD9: 427.31, ICD10: I48.[address] Robles. He is maintained on Eliquis for stroke risk reduction - ECHO - PERFLUTREN LIPID MICROSPHERES 1.1 MG/ML INJECTION IN NS 10 ML - SODIUM CHLORIDE 0.9 % (FLUSH) INJECTION SYRINGE 3. Essential hypertension, benign - ICD9: 401.1, ICD10: I10 Well-controlled on current regimen 4. Hyperlipidemia, mixed - ICD9: 272.2, ICD10: E78.2 Maintained on atorvastatin 80 mg daily. Repeat fasting blood work and LFTs - LIPID PANEL, FASTING - COMPREHENSIVE METABOLIC PANEL 5. Bilateral carotid bruits - ICD9: 785.9, ICD10: R09.89 No symptoms concerning for TIA or CVA. Recheck carotid ultrasound. Last study was in 2020 at the time of his bypass surgery - US CAROTID ARTERIES [facility] 6. S/P CABG x 2 - ICD9: V45.81, ICD10: Z95.1 Jakob Robles MD CNPN Observed: 07/28/2024 12:00 AM Status: COMPLETED Source: [facility] Telephone (AGFAMPLE) SHARON MEJIA ([id number]) 1950 M Date Time Provider Department 07/28/24 TAYLOR PIERSON During your visit today, we recorded the following information about you: Sharan Houston MA 07/28/2024 9:28 AM Signed Form received from [place] locr placed on signing tray YAMILETH Dc Julie, MA 07/28/2024 2:11 PM Signed Faxed Sharan Houston MA Allergies As of Date: 07/28/2024 Noted Allergy Reaction TAPE (ADHESIVE TAPE-SILICONES) 11/03/2019 2 - Rash Date Reviewed: 05/04/2024 Reviewed by: Taylor Pierson APRN.GENERAL EDUCATION INSTRUCTOR - Fully Assessed Reason for Visit: Electronic Communication [890] Forms [913] Prescriptions as of 07/28/2024 - atorvastatin (LIPITOR) 80 mg tablet Take 1 tablet by mouth once daily. - SITagliptin phosphate (JANUVIA) 50 mg tablet Take 1 tablet by mouth once daily. - ELIQUIS 5 mg tab(s) Take 1 tablet by mouth twice daily - amLODIPine (NORVASC) 10 mg tablet Take 1 tablet by mouth once daily - folic acid 1 mg tablet Take 1 tablet by mouth once daily - carvedilol (COREG) 3.125 mg tablet take 1 tablet by mouth twice daily with meals - FERREX 150 150 mg iron capsule Take 1 capsule by mouth once daily - ascorbic acid, vitamin C, (VITAMIN C) 500 mg tablet Take 1 tablet by mouth once daily. - MEDICATION, NON-DATABASE Take 1 tablet by mouth once daily. Stool softner - aspirin, enteric coated (ASPIRIN, ENTERIC COATED) 81 mg EC tablet Take 1 tablet by mouth once daily. Meds Comments as of 08/17/2020: 08/17/20 The medications are managed by this patient by: PATIENT and SPOUSE Loreto Dash Pharmacist Problem List As Of Date 07/28/2024 Noted Resolved Tobacco use disorder [F17.200] 08/31/2005 03/14/2020 UTI (URINARY TRACT INFECTION) [N39.0] 08/31/2005 03/14/2016 Essential hypertension, benign [I10] 08/31/2005 Bradycardia [R00.1] 10/22/2019 Second degree atrioventricular block [I44.1] 10/26/2019 HTN (hypertension) [I10] Type 2 diabetes mellitus with stage 3 chronic k* Presence of cardiac pacemaker [Z95.0] 10/26/2019 Chest tightness [R07.89] 11/08/2019 11/09/2019 Lightheadedness [R42] 11/08/2019 11/09/2019 Dizziness [R42] 11/08/2019 11/09/2019 Neurogenic bladder [N31.9] 11/20/2019 Self-catheterizes urinary bladder [Z78.9] 11/20/2019 Acute congestive heart failure (HCC) [I50.9] 11/20/2019 06/17/2020 Poor high blood pressure control [I10] 12/18/2019 02/12/2021 Stage 3a chronic kidney disease (HCC) [N18.31] 12/31/2019 Unequal blood pressures in paired extremities [*12/31/2019 Paroxysmal atrial fibrillation (HCC) [I48.0] At risk for stroke [Z91.89] Anticoagulant long-term use [Z79.01] Hyperlipidemia, mixed [E78.2] 06/21/2020 Unstable angina (HCC) [I20.0] 07/16/2020 07/18/2020 Bilateral carotid bruits [R09.89] 07/22/2020 Atherosclerosis of [place] artery of extremity w*07/22/2020 Chest pain [R07.9] 07/25/2020 08/15/2020 SOB (shortness of breath) [R06.02] 07/25/2020 Anemia [D64.9] 08/09/2020 Malnutrition of mild degree (HCC) [E44.1] 08/10/2020 02/12/2021 S/P CABG x 2 [Z95.1] 08/11/2020 CKD (chronic kidney disease) Stage 3, GFR 30-59*09/19/2020 Hypertensive kidney disease with stage 3 chroni*02/08/2022 CAD (coronary artery disease) [I25.10] Encounter for care of pacemaker [Z45.018] 04/02/2023 Encounter Status:Closed by SHARAN HOUSTON on 07/28/24 ASHAN Observed: 07/03/2024 12:00 AM Status: COMPLETED Source: [facility] Telephone ([employer]) SHARON MEJIA ([id number]) 1950 M Date Time Provider Department 07/03/24 TAYLOR PIERSON During your visit today, we recorded the following information about you: Sharan Houston MA 07/03/2024 4:22 PM Signed Form placed on signing tray YAMILETH Dc Brittny A, APRN.GENERAL EDUCATION INSTRUCTOR 07/07/2024 1:56 PM Signed Form completed and signed. Sharan Houston MA 07/07/2024 3:52 PM Signed Form faxed Sharan Houston MA Allergies As of Date: 07/03/2024 Noted Allergy Reaction TAPE (ADHESIVE TAPE-SILICONES) 11/03/2019 2 - Rash Date Reviewed: 05/04/2024 Reviewed by: Taylor Pierson APRN.GENERAL EDUCATION INSTRUCTOR - Fully Assessed Reason for Visit: Electronic Communication [890] Forms [913] Prescriptions as of 07/07/2024 - atorvastatin (LIPITOR) 80 mg tablet Take 1 tablet by mouth once daily. - SITagliptin phosphate (JANUVIA) 50 mg tablet Take 1 tablet by mouth once daily. - ELIQUIS 5 mg tab(s) Take 1 tablet by mouth twice daily - amLODIPine (NORVASC) 10 mg tablet Take 1 tablet by mouth once daily - folic acid 1 mg tablet Take 1 tablet by mouth once daily - carvedilol (COREG) 3.125 mg tablet take 1 tablet by mouth twice daily with meals - FERREX 150 150 mg iron capsule Take 1 capsule by mouth once daily - ascorbic acid, vitamin C, (VITAMIN C) 500 mg tablet Take 1 tablet by mouth once daily. - MEDICATION, NON-DATABASE Take 1 tablet by mouth once daily. Stool softner - aspirin, enteric coated (ASPIRIN, ENTERIC COATED) 81 mg EC tablet Take 1 tablet by mouth once daily. Meds Comments as of 08/17/2020: 08/17/20 The medications are managed by this patient by: PATIENT and SPOUSE Loreto Dash Pharmacist Problem List As Of Date 07/03/2024 Noted Resolved Tobacco use disorder [F17.200] 08/31/2005 03/14/2020 UTI (URINARY TRACT INFECTION) [N39.0] 08/31/2005 03/14/2016 Essential hypertension, benign [I10] 08/31/2005 Bradycardia [R00.1] 10/22/2019 Second degree atrioventricular block [I44.1] 10/26/2019 HTN (hypertension) [I10] Type 2 diabetes mellitus with stage 3 chronic k* Presence of cardiac pacemaker [Z95.0] 10/26/2019 Chest tightness [R07.89] 11/08/2019 11/09/2019 Lightheadedness [R42] 11/08/2019 11/09/2019 Dizziness [R42] 11/08/2019 11/09/2019 Neurogenic bladder [N31.9] 11/20/2019 Self-catheterizes urinary bladder [Z78.9] 11/20/2019 Acute congestive heart failure (HCC) [I50.9] 11/20/2019 06/17/2020 Poor high blood pressure control [I10] 12/18/2019 02/12/2021 Stage 3a chronic kidney disease (HCC) [N18.31] 12/31/2019 Unequal blood pressures in paired extremities [*12/31/2019 Paroxysmal atrial fibrillation (HCC) [I48.0] At risk for stroke [Z91.89] Anticoagulant long-term use [Z79.01] Hyperlipidemia, mixed [E78.2] 06/21/2020 Unstable angina (HCC) [I20.0] 07/16/2020 07/18/2020 Bilateral carotid bruits [R09.89] 07/22/2020 Atherosclerosis of [place] artery of extremity w*07/22/2020 Chest pain [R07.9] 07/25/2020 08/15/2020 SOB (shortness of breath) [R06.02] 07/25/2020 Anemia [D64.9] 08/09/2020 Malnutrition of mild degree (HCC) [E44.1] 08/10/2020 02/12/2021 S/P CABG x 2 [Z95.1] 08/11/2020 CKD (chronic kidney disease) Stage 3, GFR 30-59*09/19/2020 Hypertensive kidney disease with stage 3 chroni*02/08/2022 CAD (coronary artery disease) [I25.10] Encounter for care of pacemaker [Z45.018] 04/02/2023 Encounter Status:Closed by SHARAN HOUSTON on 07/03/24 ALVARO Observed: 05/11/2024 12:00 AM Status: COMPLETED Source: [facility] Telephone (SupportBeeF[employer]dapt[employer]LE) SHARON MEJIA ([id number]) 1950 M Date Time Provider Department 05/11/24 TAYLOR PIERSON During your visit today, we recorded the following information about you: Chandrika Flores MA 05/11/2024 9:33 AM Signed ----- Message from Taylor Pierson APRN.GENERAL EDUCATION INSTRUCTOR sent at 05/07/2024 6:47 AM EST ----- Lipid panel- LDL is not at goal. I would recommend increasing his Lipitor to 80 mg with his CV history. CMP- creatinine was still elevated at 1.5. Urine albumin elevated A1C 6.5- no change in management CBC was normal Chandrika Flores YAMILETH 05/11/2024 9:34 AM Signed Left message requesting patient call office back for results. Chandrika FloresYAMILETHUrsula chiang YAMILETH 05/11/2024 3:10 PM Signed Pt. Lm on vm requesting a call back. Called and his vm not set up. Ursula YAMILETH Durham SharanYAMILETH 05/12/2024 10:55 AM Signed Left a message for patient to call back Sharan HoangYAMILETH chau Ursula Durham MA 05/12/2024 11:06 AM Addendum Patient notified. And is requesting you to send in the 80 mg . . Ursula Durham MA Allergies As of Date: 05/11/2024 Noted Allergy Reaction TAPE (ADHESIVE TAPE-SILICONES) 11/03/2019 2 - Rash Date Reviewed: 05/04/2024 Reviewed by: Taylor Pierson APRN.GENERAL EDUCATION INSTRUCTOR - Fully Assessed Reason for Visit: Results [95] Visit Diagnosis:Hyperlipidemia, mixed [E78.2] Order(s):atorvastatin (LIPITOR) 80 mg tabletTake 1 tablet by mouth once daily.Disp: 90 tabletRfl: 1 Prescriptions as of 05/12/2024 - atorvastatin (LIPITOR) 80 mg tablet Take 1 tablet by mouth once daily. - SITagliptin phosphate (JANUVIA) 50 mg tablet Take 1 tablet by mouth once daily. - ELIQUIS 5 mg tab(s) Take 1 tablet by mouth twice daily - amLODIPine (NORVASC) 10 mg tablet Take 1 tablet by mouth once daily - folic acid 1 mg tablet Take 1 tablet by mouth once daily - carvedilol (COREG) 3.125 mg tablet take 1 tablet by mouth twice daily with meals - FERREX 150 150 mg iron capsule Take 1 capsule by mouth once daily - ascorbic acid, vitamin C, (VITAMIN C) 500 mg tablet Take 1 tablet by mouth once daily. - MEDICATION, NON-DATABASE Take 1 tablet by mouth once daily. Stool softner - aspirin, enteric coated (ASPIRIN, ENTERIC COATED) 81 mg EC tablet Take 1 tablet by mouth once daily. Meds Comments as of 08/17/2020: 08/17/20 The medications are managed by this patient by: PATIENT and SPOUSE Loreto Ekta, Pharmacist Problem List As Of Date 05/11/2024 Noted Resolved Tobacco use disorder [F17.200] 08/31/2005 03/14/2020 UTI (URINARY TRACT INFECTION) [N39.0] 08/31/2005 03/14/2016 Essential hypertension, benign [I10] 08/31/2005 Bradycardia [R00.1] 10/22/2019 Second degree atrioventricular block [I44.1] 10/26/2019 HTN (hypertension) [I10] Type 2 diabetes mellitus with stage 3 chronic k* Presence of cardiac pacemaker [Z95.0] 10/26/2019 Chest tightness [R07.89] 11/08/2019 11/09/2019 Lightheadedness [R42] 11/08/2019 11/09/2019 Dizziness [R42] 11/08/2019 11/09/2019 Neurogenic bladder [N31.9] 11/20/2019 Self-catheterizes urinary bladder [Z78.9] 11/20/2019 Acute congestive heart failure (HCC) [I50.9] 11/20/2019 06/17/2020 Poor high blood pressure control [I10] 12/18/2019 02/12/2021 Stage 3a chronic kidney disease (HCC) [N18.31] 12/31/2019 Unequal blood pressures in paired extremities [*12/31/2019 Paroxysmal atrial fibrillation (HCC) [I48.0] At risk for stroke [Z91.89] Anticoagulant long-term use [Z79.01] Hyperlipidemia, mixed [E78.2] 06/21/2020 Unstable angina (HCC) [I20.0] 07/16/2020 07/18/2020 Bilateral carotid bruits [R09.89] 07/22/2020 Atherosclerosis of [place] artery of extremity w*07/22/2020 Chest pain [R07.9] 07/25/2020 08/15/2020 SOB (shortness of breath) [R06.02] 07/25/2020 Anemia [D64.9] 08/09/2020 Malnutrition of mild degree (HCC) [E44.1] 08/10/2020 02/12/2021 S/P CABG x 2 [Z95.1] 08/11/2020 CKD (chronic kidney disease) Stage 3, GFR 30-59*09/19/2020 Hypertensive kidney disease with stage 3 chroni*02/08/2022 CAD (coronary artery disease) [I25.10] Encounter for care of pacemaker [Z45.018] 04/02/2023 Prescriptions ordered this encounter Disp Refills Start End ATORVASTATIN 80 MG TABLET 90 t* 1 05/12/2024 Route: ORAL Sig: Take 1 tablet by mouth once daily. Medications Discontinued During This Encounter Prescriptions - atorvastatin (LIPITOR) 40 mg tablet (Discontinued) Take 1 tablet by mouth once daily Encounter Status:Closed by TAYLOR PIERSON on 05/12/24 ALBUMIN/CREATININE RATIO, URINE Collect ed: 05/05/2024 11:52 AM Status: F Source: [facility] Order Comment: Specimen Type : URINE SPECIMEN Ordering Facility: [facility] Address: [address] [place] [address] TYPE CODE TESTS RESULT OUT OF RANGE REFERENCE UNITS LAB 2161-8(LOINC) Creat Ur-mCnc 139.7 46.8-314.5 m g/dL LAB 20368-1(LOINC ) Microalbumin ?Tm Ur-mRate 348.0 mg/L LAB 9318-7(LOINC) Albumin/Creat Ur 249 High <30 mg/g Result Comment: Adult Male a nd Female Nephrotic Criteria: <30 mg/g is considered normal to mildly increased 30-300 mg/g is considered moderately increased >300 mg/g is considered severely increased KDIGO. (2013). KDIGO 2012 Clinical Practice Guideline for the Evaluation and Management of Chronic Kidney Disease. Official Journal of the International Society of Nephrology, 3(1), 1-150. Performed By: #### UACR #### [facility] CLIA [id number] [address] [place] [address] [place] COMP METAB 2000 PNL SERPL Collected: 11:46 AM Status: F Source: [facility] Order Comment: Specimen Type : BLOOD SPECIMEN Ordering Facility: [facility] Address: [address] [place] [address] TYPE CODE TESTS RESULT OUT OF RANGE REFERENCE UNITS LAB 2885-2(LOINC) Prot SerPl-mCnc 6.6 6.3-8.0 g/dL LAB 1751-7(LOINC) Albumin SerPl-mCnc 4.2 3.9-4.9 g/dL LAB 41311-9(LOINC) Calcium SerPl-mCnc 9.4 8.5-10.2 mg/dL LAB 1975-2(LOINC) Bilirub SerPl-mCnc 0.4 0.2-1.3 mg/dL LAB 6768-6(LOINC) ALP SerPl-cCnc 89 38-113 U/L LAB 43217-8(LOINC) AST SerPl w P-5'-P-cCnc 18 14-40 U/L LAB 1743-4(LOINC) ALT SerPl w P-5'-P-cCnc 15 10-54 U/L LAB 2345-7(INC) Glucose SerPl-mCnc 145 High 74-99 mg/dL Result Comment: The [place] Diabetes Association (ADA) provides guidance for cutoff values for fasting glucose and random glucose. The ADA defines fasting as no caloric intake for at least 8 hours. Fasting plasma glucose results between 100 to 125 mg/dL indicate increased risk for diabetes (prediabetes). Fasting plasma glucose results greater than or equal to 126 mg/dL meet the criteria for diagnosis of diabetes. In the absence of unequivocal hyperglycemia, results should be confirmed by repeat testing. In a patient with classic symptoms of hyperglycemia or hyperglycemic crisis, random plasma glucose results greater than or equal to 200 mg/dL meet the criteria for diagnosis of diabetes. Reference: Standards of Medical Care in Diabetes 2016, [place] Diabetes Association. Diabetes Care. 2016.39(Suppl 1). LAB 3094-0(LOINC) BUN SerPl-mCnc 24 9-24 mg/ dL LAB 2160-0(LOINC) Creat SerPl-mCnc 1.50 High 0.73-1.22 mg/dL LAB 2951-2(LOINC) Sodium SerPl-sCnc 140 136-144 mmol/L LAB 2823-3(LOINC) Potassium SerPl-sCnc 4.9 3.7-5.1 mmol/L LAB 2075-0(LOINC) Chloride SerPl-sCnc 105 98-107 mmol/L LAB 8-9(LOINC) CO2 SerPl-sCnc 28 22-30 mmo l/L LAB 62656-2(LOINC) Anion Gap SerPl-sCnc 7 Low 8-15 mmol/L LAB 75217-3(LOINC) Creatinine + eGFR Pnl SerPlBld 48 Low >=60 mL/min/1. 73m??? Result Comment: Estimated Gl omerular Filtration Rate (eGFR) is calculated using the 2020 CKD-EPI creatinine equation. This equation utilizes serum creatinine, sex, and age as parameters. The creatinine assay has traceable calibration to isotope dilution-mass spectrometry. Refer to KDIGO guidelines for clinical interpretation. In patients with unstable renal function, e.g. those with acute kidney injury, the eGFR may not accurately reflect actual GFR. Performed By: #### 31238-2, 81380-1 #### [facility] CLIA [id number] [address] [place], [place] [id number] [place] LIPID 1996 PNL SERPL Collected: 024 11:46 AM Status: F Source: [facility] Order Comment: Specimen Type : BLOOD SPECIMEN Ordering Facility: [facility] Address: [address] [place] [address] TYPE CODE TESTS RESULT OUT OF RANGE REFERENCE UNITS LAB 2093-3(LOINC) Cholest SerPl-mCnc 191 <200 mg/dL Result Comment: <200 mg/dL, Desirable 200-239 mg/dL, Borderline high >239 mg/dL, High LAB 2571-8(LOINC) Trigl SerPl-mCnc 68 <150 mg/dL Result Comment: <150 mg/dL, Normal 150-199 mg/dL, Borderline high 200-499 mg/dL, High >499 mg/dL, Very high LAB 2085-9(LOINC) HDLc SerPl-mCnc 71 >39 mg/dL Result Comment: 40-59 mg/dL, Acceptable >59 mg/dL, High: Negative risk factor for coronary heart disease <40 mg/dL, Low: Positive risk factor for coronary heart disease LAB 64061-9(LOINC) NonHDLc SerPl-mCnc 120 <130 mg/dL Result Comment: <130 mg/dL, Optimal 130-159 mg/dL, Near optimal/above optimal 160-189 mg/dL, Borderline high 190-219 mg/dL, High >219 mg/dL, Very high Secondary prevention optimal non HDL Cholesterol levels are recommended to be <100 mg/dL LAB FT FASTING TIME 12 hrs LAB 31517-0(LOINC) VLDLc SerPl Calc-mCnc 14 <30 mg/dL LAB 9830-1(LOINC) Cholest/HDLc SerPl 2.69 <5.10 LAB 2089-1(LOINC) LDLc SerPl-mCnc 106 High <100 mg/dL Result Comment: <100 mg/dL, Optimal 100-129 mg/dL, Near optimal/above optimal 130-159 mg/dL, Borderline high 160-189 mg/dL, High >189 mg/dL, Very high Secondary prevention optimal LDL Cholesterol levels are recommended to be < 70 mg/dL LAB 12368-9(LOINC) LDLc/HDLc SerPl 1.49 <2.54 Result Comment: Reference: 1. National Cholesterol Education Program ATP III Guideline At-A-Glance Quick Desk Reference: National Heart, Lung, and Blood [place]. National Institutes of Health. 2001: NIH Publication No. 01-3305. 2. An International Atherosclerosis Society position paper: global recommendations for the management of dyslipidemia: executive summary, Atherosclerosis. 2014: 232(2):410-413. Performed By: #### 06042-0, 15279-1 #### [facility] CLIA [id number] [address] [place] [address] [place] [facility] CBC W AUTO DIFF BLD Collected: 05/05/2024 11:46 AM S tatus: F Source: [facility] Order Comment: Specimen Type : BLOOD SPECIMEN Ordering Facility: [facility] Address: [address] [place] [address] TYPE CODE TESTS RESULT OUT OF RANGE REFERENCE UNITS LAB 6690-2(INC) WBC # Bld Auto 6.68 3.70-11.00 k/uL LAB 789-8(LOINC) RBC # Bld Auto 4.40 4.20-6.00 m/ uL LAB 718-7(LOINC) Hgb Bld-mCnc 13.7 13.0-17.0 g/dL LAB 4544-3(LOINC) Hct VFr Bld Auto 42.0 39.0-51.0 % LAB 787-2(LOINC) MCV RBC Auto 95.5 80.0-100.0 fL LAB 785-6([facility]) MCH RBC Qn Auto 31.1 26.0-34.0 p g LAB 786-4([facility]) MCHC RBC Auto-mCnc 32.6 30.5-36.0 g/dL LAB 75860-3([facility]) RDW RBC-Rto 13.4 11.5-15.0 % LAB 777-3([facility]) Platelet # Bld Auto 199 150-400 k/uL LAB 63794-3([facility]) PMV Bld Auto 10.2 9.0-12.7 fL LAB 770-8([facility]) Neutrophils/leuk NFr Bld Auto 56.7 % LAB 751-8([facility]) Neutrophils # Bl d Auto 3.79 1.45-7.50 k/uL LAB 736-9([facility]) Lymphocytes/leuk NFr Bld Auto 23.7 % LAB 731-0([facility]) Lymphocytes # Bl d Auto 1.58 1.00-4.00 k/uL LAB 5905-5([facility]) Monocytes/leuk NFr Bld Auto 8.4 % LAB 742-7([facility]) Monocytes # Bld Auto 0.56 <0.87 k/uL LAB 713-8([facility]) Eosinophil/leuk NFr Bld Auto 10.5 % LAB 711-2([facility]) Eosinophil # Bld Auto 0.70 High <0.46 k/uL LAB 706-2([facility]) Basophils/leuk NFr Bld Auto 0.7 % LAB 704-7([facility]) Basophils # Bld Auto 0.05 <0.11 k/uL LAB 65785-3([facility]) Imm Granulocytes/leuk NFr Bld Auto 0.0 % LAB 69376-5([facility]) Imm Granulocytes # Bld Auto <0.03 <0.10 k/uL LAB 44972-1([facility]) nRBC/100 WBC Bld-Rto LAB 771-6([facility]) nRBC # Bld Auto LAB 65098-6([facility]) Differential method Bld Auto Performed By: #### 50016-9 # ### [facility] [place] [id number] [address] [place] [address] [place] DEPRECATED HGB A1C BLD Collected: 05/05 11:46 AM Status: F Source: [facility] Order Comment: Specimen Type : BLOOD SPECIMEN Ordering Facility: [facility] Address: [address] [place] [address] TYPE CODE TESTS RESULT OUT OF RANGE REFERENCE UNITS LAB 4548-4(LOINC) HbA1c MFr Bld 6.5 High 4.3-5.6 % Result Comment: [place] Sydnee betes Association guidelines indicate that patients with HgbA1c in the range 5.7-6.4% are at increased risk for development of diabetes, and intervention by lifestyle modification may be beneficial. HgbA1c greater or equal to 6.5% is considered diagnostic of diabetes. LAB 49853-0(LOINC) Est. average glucose Bld gHb Est-mCnc 140 mg/dL Result Comment: eAG: (Estima rudy average glucose) is a calculated value from HgbA1c and is medical claims representative of the average blood glucose level in the last 2-3 month period. Performed By: #### 43232-5 # ### [facility] CLIA [id number] [address] [place] [address] [place] PROGRESS Observed: 05/04/2024 1:41 PM Status: COMPLETED Source: [facility] HNO ID: [id number] Author: TAYLOR PIERSON APRN.GENERAL EDUCATION INSTRUCTOR Service: ? Author Type: Nurse Practitioner Type: Progress Notes Filed: 05/04/2024 14:23 Note Text: CHIEF COMPLAINT: Sharon Mejia is a 74 year old male who presents for diabetic follow up. I reviewed past medical, surgical, social, and family histories today and updated chart. Allergies, chronic medications, and supplements were also reviewed. His daughter, Sahara, is present with him today. His in January after a short illness. He states he is doing well though overall. He denies any symptoms of CP, SOB, dizziness, palpitations, headaches, fatigue, foot pain or N/T in extremities. Denies polydipsia, polyphagia, polyuria. He had a follow up with Dr. Robles for his pacemaker last week. He will follow with him once a year. He is still following with cardiology and urology once a year. PSA last summer was around 4.2. He reports checking his blood sugar on occasion and it has been running around 120-125 in the morning. His BP readings at home have also been controlled. He is due for routine labs. He does not need any medication refills at this time. He remains anticoagulated with Eliquis, denies any bleeding issues. Home Blood Sugars: 120-130 when he checks it Medication Compliance: Yes, taking Januvia Low Blood Sugars: None Diet: Generally healthy Exercise: No routine Eye Exam: Up to date Podiatry: None Tobacco use - None Alcohol use - None PAST MEDICAL HISTORY Diagnosis Date Anticoagulant long-term use At risk for stroke Bradycardia 10/22/2019 CAD (coronary artery disease) CKD (chronic kidney disease) stage 2, GFR 60-89 ml/min Congenital absence of one kidney Controlled type 2 diabetes mellitus without complication, without long-term current use of insulin (HCC) Diabetes (HCC) HTN (hypertension) Mixed hyperlipidemia Paroxysmal atrial fibrillation (HCC) Poor high blood pressure control 12/18/2019 Presence of cardiac pacemaker 10/26/2019 [employer] dual-chamber pacemaker 10/26/2019; indication: symptomatic bradycardia due to second-degree AV block; MRI conditional after 6 weeks post implant Second degree atrioventricular block 10/26/2019 Tobacco use disorder 08/31/2005 PAST SURGICAL HISTORY Procedure Laterality Date BASIC PACEMAKER DUAL CHAMBER Left 10/26/2019 [employer] dual-chamber pacemaker; indication: symptomatic bradycardia due to second-degree AV block; MRI conditional after 6 weeks post implant; [facility] Dr. Robles CABG (2) VEIN GRAFTS AND ARTERIAL GRAFT(S 08/09/2020 LEFT HEART CATH,PERCUTANEOUS 07/17/2020 UNLISTED PROCEDURE HUMERUS/ELBOW Left 1956 Social History Tobacco Use Smoking status: Former Current packs/day: 0.00 Average packs/day: 0.5 packs/day for 40.0 years (20.0 ttl pk-yrs) Types: Cigarettes Start date: 08/25/1965 Quit date: 08/25/2005 Years since quittin.7 Smokeless tobacco: Never Vaping Use Vaping status: Never Used Substance Use Topics Alcohol use: No Drug use: No ALLERGIES Allergen Reactions Tape [Adhesive Tape* Rash Family History Problem Relation Age of Onset other (pacemaker) Brother Diabetes Mother Hypertension Mother Stroke Father Heart disease Brother PCI Current Outpatient Medications Medication Sig Dispense Refill SITagliptin phosphate (JANUVIA) 50 mg tablet Take 1 tablet by mouth once daily. 90 tablet 1 ELIQUIS 5 mg tab(s) Take 1 tablet by mouth twice daily 60 tablet 11 amLODIPine (NORVASC) 10 mg tablet Take 1 tablet by mouth once daily 90 tablet 1 atorvastatin (LIPITOR) 40 mg tablet Take 1 tablet by mouth once daily 90 tablet 1 folic acid 1 mg tablet Take 1 tablet by mouth once daily 90 tablet 1 carvedilol (COREG) 3.125 mg tablet take 1 tablet by mouth twice daily with meals 180 tablet 1 FERREX 150 150 mg iron capsule Take 1 capsule by mouth once daily 90 capsule 1 ascorbic acid, vitamin C, (VITAMIN C) 500 mg tablet Take 1 tablet by mouth once daily. 90 tablet 1 MEDICATION, NON-DATABASE Take 1 tablet by mouth once daily. Stool softner aspirin, enteric coated (ASPIRIN, ENTERIC COATED) 81 mg EC tablet Take 1 tablet by mouth once daily. 30 tablet 11 No current facility-administered medications for this visit. Review of Systems Constitutional: Negative for appetite change, chills, diaphoresis, fatigue, fever and unexpected weight change. HENT: Negative. Eyes: Negative for visual disturbance. Respiratory: Negative for cough, chest tightness, shortness of breath and wheezing. Cardiovascular: Negative for chest pain, palpitations and leg swelling. Gastrointestinal: Negative for abdominal pain, blood in stool, constipation, diarrhea, nausea and vomiting. Endocrine: Negative. Genitourinary: Negative for dysuria, frequency, hematuria and urgency. Musculoskeletal: Negative for arthralgias, back pain, joint swelling, myalgias and neck pain. Skin: Negative for color change and rash. Allergic/Immunologic: Negative. Neurological: Negative for dizziness, seizures, syncope, light-headedness and headaches. Hematological: Negative for adenopathy. Does not bruise/bleed easily. Psychiatric/Behavioral: Negative for dysphoric mood and sleep disturbance. The patient is not nervous/anxious. BP 126/74 Pulse 77 Temp 98 Resp 16 Ht 5' 10" (1.78m) Wt 152 lb (68.9kg) SpO2 97% BMI 21.81 kg/(m2). Physical Exam Vitals and nursing note reviewed. Constitutional: Appearance: He is well-developed. HENT: Head: Normocephalic. Nose: Nose normal. Mouth/Throat: Lips: [place]. Mouth: Mucous membranes are moist. Eyes: General: Vision grossly intact. Pupils: Pupils are equal, round, and reactive to light. Neck: Thyroid: No thyroid mass or thyromegaly. Cardiovascular: Rate and Rhythm: Normal rate and regular rhythm. Heart sounds: Normal heart sounds, S1 normal and S2 normal. No murmur heard. Comments: Pacemaker in left upper chest Pulmonary: Effort: Pulmonary effort is normal. No respiratory distress. Breath sounds: Normal breath sounds and air entry. Musculoskeletal: Right lower leg: No edema. Left lower leg: No edema. Skin: General: Skin is warm and dry. Neurological: General: No focal deficit present. Mental Status: He is alert and oriented to person, place, and time. Motor: Motor function is intact. Psychiatric: Mood and Affect: Mood and affect normal. Speech: Speech normal. Behavior: Behavior normal. Thought Content: Thought content normal. Cognition and Memory: Cognition normal. Judgment: Judgment normal. ASSESSMENT/PLAN: 1. Type 2 diabetes mellitus with stage 3a chronic kidney disease, without long-term current use of insulin (HCC) - ICD9: 250.40, 585.3, ICD10: E11.22, N18.31 (primary diagnosis) - Control undetermined, due for labs - Continue current medications - Statin prescribed - atorvastatin - Blood glucose monitoring on a once daily schedule - Counseled on healthy diet and regular exercise - Follow up in 6 months, sooner should any other issues arise. - eGFR: Due for labs - Counseled on avoiding NSAIDs, adequate hydration - Counseled on low sodium diet - COMPREHENSIVE METABOLIC PANEL - HEMOGLOBIN A1C - ALBUMIN/CREATININE RATIO, URINE 2. Hypertension, essential - ICD9: 401.9, ICD10: I10 - Controlled - Continue current medications - Recommend home blood pressure monitoring, to bring results to next visit - Encouraged sodium restriction, DASH or Mediterranean diet - Recommend regular aerobic exercise - Follow up in 6 months or sooner if needed for hypertension visit - COMPLETE BLOOD COUNT AND DIFFERENTIAL - COMPREHENSIVE METABOLIC PANEL 3. Hyperlipidemia, mixed - ICD9: 272.2, ICD10: E78.2 - Control undetermined, due for labs - Continue current medications - Counseled on healthy diet and regular exercise - COMPREHENSIVE METABOLIC PANEL - LIPID PANEL BASIC 4. Paroxysmal atrial fibrillation (HCC) - ICD9: 427.31, ICD10: I48.0 - On Eliquis for anticoagulation - Rate controlled with Coreg 5. Anticoagulant long-term use - ICD9: V58.61, ICD10: Z79.01 6. Presence of cardiac pacemaker - ICD9: V45.01, ICD10: Z95.0 - Follows with Dr. Robles New medication(s) prescribed today: None. Counseling completed in adopting health behaviors such as avoiding excessive alcohol use, avoid tobacco use, improve nutrition, and engage in physical activities. Copy of written care plan, clinical summary, treatment plan, new medications, goals, and self management requirements were given to patient. Taylor Pierson APRN.CNP CNOV Observed: 05/04/2024 1:40 PM Status: COMPLETED Source: [facility] Office Visit ([place]) SHARON MEJIA ([id number]) 1950 M Date Time Provider Department 05/04/24 1:40 PM TAYLOR PIERSON During your visit today, we recorded the following information about you: Temperature Pulse Respiration Blood pressure 98 degrees 77/minute 16/minute 126/74 Weight Height 68.9 kg 1.778 m Taylor Pierson APRN.CNP 05/04/2024 2:23 PM Signed CHIEF COMPLAINT: Sharon Mejia is a 74 year old male who presents for diabetic follow up. I reviewed past medical, surgical, social, and family histories today and updated chart. Allergies, chronic medications, and supplements were also reviewed. His daughter, Sahara, is present with him today. His in January after a short illness. He states he is doing well though overall. He denies any symptoms of CP, SOB, dizziness, palpitations, headaches, fatigue, foot pain or N/T in extremities. Denies polydipsia, polyphagia, polyuria. He had a follow up with Dr. Robles for his pacemaker last week. He will follow with him once a year. He is still following with cardiology and urology once a year. PSA last summer was around 4.2. He reports checking his blood sugar on occasion and it has been running around 120-125 in the morning. His BP readings at home have also been controlled. He is due for routine labs. He does not need any medication refills at this time. He remains anticoagulated with Eliquis, denies any bleeding issues. Home Blood Sugars: 120-130 when he checks it Medication Compliance: Yes, taking Januvia Low Blood Sugars: None Diet: Generally healthy Exercise: No routine Eye Exam: Up to date Podiatry: None Tobacco use - None Alcohol use - None PAST MEDICAL HISTORY Diagnosis Date Anticoagulant long-term use At risk for stroke Bradycardia 10/22/2019 CAD (coronary artery disease) CKD (chronic kidney disease) stage 2, GFR 60-89 ml/min Congenital absence of one kidney Controlled type 2 diabetes mellitus without complication, without long-term current use of insulin (HCC) Diabetes (HCC) HTN (hypertension) Mixed hyperlipidemia Paroxysmal atrial fibrillation (HCC) Poor high blood pressure control 12/18/2019 Presence of cardiac pacemaker 10/26/2019 [employer] dual-chamber pacemaker 10/26/2019; indication: symptomatic bradycardia due to second-degree AV block; MRI conditional after 6 weeks post implant Second degree atrioventricular block 10/26/2019 Tobacco use disorder 08/31/2005 PAST SURGICAL HISTORY Procedure Laterality Date BASIC PACEMAKER DUAL CHAMBER Left 10/26/2019 [employer] dual-chamber pacemaker; indication: symptomatic bradycardia due to second-degree AV block; MRI conditional after 6 weeks post implant; [facility] Dr. Robles CABG (2) VEIN GRAFTS AND ARTERIAL GRAFT(S 08/09/2020 LEFT HEART CATH,PERCUTANEOUS 07/17/2020 UNLISTED PROCEDURE HUMERUS/ELBOW Left 1956 Social History Tobacco Use Smoking status: Former Current packs/day: 0.00 Average packs/day: 0.5 packs/day for 40.0 years (20.0 ttl pk-yrs) Types: Cigarettes Start date: 08/25/1965 Quit date: 08/25/2005 Years since quittin.7 Smokeless tobacco: Never Vaping Use Vaping status: Never Used Substance Use Topics Alcohol use: No Drug use: No ALLERGIES Allergen Reactions Tape [Adhesive Tape* Rash Family History Problem Relation Age of Onset other (pacemaker) Brother Diabetes Mother Hypertension Mother Stroke Father Heart disease Brother PCI Current Outpatient Medications Medication Sig Dispense Refill SITagliptin phosphate (JANUVIA) 50 mg tablet Take 1 tablet by mouth once daily. 90 tablet 1 ELIQUIS 5 mg tab(s) Take 1 tablet by mouth twice daily 60 tablet 11 amLODIPine (NORVASC) 10 mg tablet Take 1 tablet by mouth once daily 90 tablet 1 atorvastatin (LIPITOR) 40 mg tablet Take 1 tablet by mouth once daily 90 tablet 1 folic acid 1 mg tablet Take 1 tablet by mouth once daily 90 tablet 1 carvedilol (COREG) 3.125 mg tablet take 1 tablet by mouth twice daily with meals 180 tablet 1 FERREX 150 150 mg iron capsule Take 1 capsule by mouth once daily 90 capsule 1 ascorbic acid, vitamin C, (VITAMIN C) 500 mg tablet Take 1 tablet by mouth once daily. 90 tablet 1 MEDICATION, NON-DATABASE Take 1 tablet by mouth once daily. Stool softner aspirin, enteric coated (ASPIRIN, ENTERIC COATED) 81 mg EC tablet Take 1 tablet by mouth once daily. 30 tablet 11 No current facility-administered medications for this visit. Review of Systems Constitutional: Negative for appetite change, chills, diaphoresis, fatigue, fever and unexpected weight change. HENT: Negative. Eyes: Negative for visual disturbance. Respiratory: Negative for cough, chest tightness, shortness of breath and wheezing. Cardiovascular: Negative for chest pain, palpitations and leg swelling. Gastrointestinal: Negative for abdominal pain, blood in stool, constipation, diarrhea, nausea and vomiting. Endocrine: Negative. Genitourinary: Negative for dysuria, frequency, hematuria and urgency. Musculoskeletal: Negative for arthralgias, back pain, joint swelling, myalgias and neck pain. Skin: Negative for color change and rash. Allergic/Immunologic: Negative. Neurological: Negative for dizziness, seizures, syncope, light-headedness and headaches. Hematological: Negative for adenopathy. Does not bruise/bleed easily. Psychiatric/Behavioral: Negative for dysphoric mood and sleep disturbance. The patient is not nervous/anxious. BP 126/74 Pulse 77 Temp 98 Resp 16 Ht 5' 10" (1.78m) Wt 152 lb (68.9kg) SpO2 97% BMI 21.81 kg/(m2). Physical Exam Vitals and nursing note reviewed. Constitutional: Appearance: He is well-developed. HENT: Head: Normocephalic. Nose: Nose normal. Mouth/Throat: Lips: [place]. Mouth: Mucous membranes are moist. Eyes: General: Vision grossly intact. Pupils: Pupils are equal, round, and reactive to light. Neck: Thyroid: No thyroid mass or thyromegaly. Cardiovascular: Rate and Rhythm: Normal rate and regular rhythm. Heart sounds: Normal heart sounds, S1 normal and S2 normal. No murmur heard. Comments: Pacemaker in left upper chest Pulmonary: Effort: Pulmonary effort is normal. No respiratory distress. Breath sounds: Normal breath sounds and air entry. Musculoskeletal: Right lower leg: No edema. Left lower leg: No edema. Skin: General: Skin is warm and dry. Neurological: General: No focal deficit present. Mental Status: He is alert and oriented to person, place, and time. Motor: Motor function is intact. Psychiatric: Mood and Affect: Mood and affect normal. Speech: Speech normal. Behavior: Behavior normal. Thought Content: Thought content normal. Cognition and Memory: Cognition normal. Judgment: Judgment normal. ASSESSMENT/PLAN: 1. Type 2 diabetes mellitus with stage 3a chronic kidney disease, without long-term current use of insulin (HCC) - ICD9: 250.40, 585.3, ICD10: E11.22, N18.31 (primary diagnosis) - Control undetermined, due for labs - Continue current medications - Statin prescribed - atorvastatin - Blood glucose monitoring on a once daily schedule - Counseled on healthy diet and regular exercise - Follow up in 6 months, sooner should any other issues arise. - eGFR: Due for labs - Counseled on avoiding NSAIDs, adequate hydration - Counseled on low sodium diet - COMPREHENSIVE METABOLIC PANEL - HEMOGLOBIN A1C - ALBUMIN/CREATININE RATIO, URINE 2. Hypertension, essential - ICD9: 401.9, ICD10: I10 - Controlled - Continue current medications - Recommend home blood pressure monitoring, to bring results to next visit - Encouraged sodium restriction, DASH or Mediterranean diet - Recommend regular aerobic exercise - Follow up in 6 months or sooner if needed for hypertension visit - COMPLETE BLOOD COUNT AND DIFFERENTIAL - COMPREHENSIVE METABOLIC PANEL 3. Hyperlipidemia, mixed - ICD9: 272.2, ICD10: E78.2 - Control undetermined, due for labs - Continue current medications - Counseled on healthy diet and regular exercise - COMPREHENSIVE METABOLIC PANEL - LIPID PANEL BASIC 4. Paroxysmal atrial fibrillation (HCC) - ICD9: 427.31, ICD10: I48.0 - On Eliquis for anticoagulation - Rate controlled with Coreg 5. Anticoagulant long-term use - ICD9: V58.61, ICD10: Z79.01 6. Presence of cardiac pacemaker - ICD9: V45.01, ICD10: Z95.0 - Follows with Dr. Robles New medication(s) prescribed today: None. Counseling completed in adopting health behaviors such as avoiding excessive alcohol use, avoid tobacco use, improve nutrition, and engage in physical activities. Copy of written care plan, clinical summary, treatment plan, new medications, goals, and self management requirements were given to patient. GINO Bill Brittny A, APRN.CNP 05/04/2024 1:49 PM Signed [facility] Outpatient Lab Hours For your convenience, the outpatient laboratory is open during the following hours: Saturday- Saturday 7 a.m. - 3:30 p.m. Saturday: 8 a.m. - 12 p.m. The lab is closed for lunch from 12:30-1 pm. The outpatient lab is closed on Sundays and s. Allergies As of Date: 05/04/2024 Noted Allergy Reaction TAPE (ADHESIVE TAPE-SILICONES) 11/03/2019 2 - Rash Date Reviewed: 05/04/2024 Reviewed by: Taylor Pierson APRN.CNP - Fully Assessed Reason for Visit: Follow Up [171] Primary Visit Diagnosis:Type 2 diabetes mellitus with stage 3a chronic kidney disease, without long-term current use of insulin (HCC) [E11.22, N18.31] Other Visit Diagnoses:Hypertension, essential [I10] Hyperlipidemia, mixed [E78.2] Paroxysmal atrial fibrillation (HCC) [I48.0] Anticoagulant long-term use [Z79.01] Presence of cardiac pacemaker [Z95.0] Order(s):COMPLETE BLOOD COUNT AND DIFFERENTIAL [SQCBCDIF] Order #: [id number] FUTURE COMPREHENSIVE METABOLIC PANEL [SQCMP] Order #: [id number] FUTURE LIPID PANEL BASIC [SQLIPB] Order #: [id number] FUTURE HEMOGLOBIN A1C [NWZBC0J] Order #: [id number] FUTURE ALBUMIN/CREATININE RATIO, URINE [SQUACR] Order #: [id number] FUTURE Prescriptions as of 05/04/2024 - SITagliptin phosphate (JANUVIA) 50 mg tablet Take 1 tablet by mouth once daily. - ELIQUIS 5 mg tab(s) Take 1 tablet by mouth twice daily - amLODIPine (NORVASC) 10 mg tablet Take 1 tablet by mouth once daily - atorvastatin (LIPITOR) 40 mg tablet Take 1 tablet by mouth once daily - folic acid 1 mg tablet Take 1 tablet by mouth once daily - carvedilol (COREG) 3.125 mg tablet take 1 tablet by mouth twice daily with meals - FERREX 150 150 mg iron capsule Take 1 capsule by mouth once daily - ascorbic acid, vitamin C, (VITAMIN C) 500 mg tablet Take 1 tablet by mouth once daily. - MEDICATION, NON-DATABASE Take 1 tablet by mouth once daily. Stool softner - aspirin, enteric coated (ASPIRIN, ENTERIC COATED) 81 mg EC tablet Take 1 tablet by mouth once daily. Meds Comments as of 08/17/2020: 08/17/20 The medications are managed by this patient by: PATIENT and SPOUSE Loreto Dash Pharmacist Problem List As Of Date 05/04/2024 Noted Resolved Tobacco use disorder [F17.200] 08/31/2005 03/14/2020 UTI (URINARY TRACT INFECTION) [N39.0] 08/31/2005 03/14/2016 Essential hypertension, benign [I10] 08/31/2005 Bradycardia [R00.1] 10/22/2019 Second degree atrioventricular block [I44.1] 10/26/2019 HTN (hypertension) [I10] Type 2 diabetes mellitus with stage 3 chronic k* Presence of cardiac pacemaker [Z95.0] 10/26/2019 Chest tightness [R07.89] 11/08/2019 11/09/2019 Lightheadedness [R42] 11/08/2019 11/09/2019 Dizziness [R42] 11/08/2019 11/09/2019 Neurogenic bladder [N31.9] 11/20/2019 Self-catheterizes urinary bladder [Z78.9] 11/20/2019 Acute congestive heart failure (HCC) [I50.9] 11/20/2019 06/17/2020 Poor high blood pressure control [I10] 12/18/2019 02/12/2021 Stage 3a chronic kidney disease (HCC) [N18.31] 12/31/2019 Unequal blood pressures in paired extremities [*12/31/2019 Paroxysmal atrial fibrillation (HCC) [I48.0] At risk for stroke [Z91.89] Anticoagulant long-term use [Z79.01] Hyperlipidemia, mixed [E78.2] 06/21/2020 Unstable angina (HCC) [I20.0] 07/16/2020 07/18/2020 Bilateral carotid bruits [R09.89] 07/22/2020 Atherosclerosis of [place] artery of extremity w*07/22/2020 Chest pain [R07.9] 07/25/2020 08/15/2020 SOB (shortness of breath) [R06.02] 07/25/2020 Anemia [D64.9] 08/09/2020 Malnutrition of mild degree (HCC) [E44.1] 08/10/2020 02/12/2021 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 - 3:30 p.m. Saturday: 8 a.m. - 12 p.m. The lab is closed for lunch from 12:30-1 pm. The outpatient lab is closed on Sundays and hol. Disposition: Return in about 6 months (around 11/01/2024) for DM follow-up. Follow-up and Disposition History for Encounter Date Provider Department Center 05/04/2024 [id number] PIERSON [facility] [address] Encounter Status:Closed by TAYLOR PIERSON on 05/04/24 PROGRESS Observed: 04/22/2024 8:51 AM Status: COMPLETED Source: [facility] HNO ID: [id number] Author: HEDY ROBLES MD Service: ? Author Type: Physician Type: Progress Notes Filed: 04/24/2024 12:49 Note Text: PRIMARY CARE PHYSICIAN: Taylor Pierson [address] [place] [id number] Patient Care Team: Taylor Pierson APRN.CNP as PCP - General (Family Medicine) Hedy Robles MD as Specialty Head Cd Reactor Operator (Cardiology) Bryant Lockwood MD as Specialty Head Cd Reactor Operator (Nephrology) CHIEF COMPLAINT: Follow up for arrhythmia HISTORY OF PRESENT ILLNESS: Mr. Mejia is a 74 year old male who presents today for a cardiovascular medicine follow-up visit. Mr. Mejia has a history of symptomatic bradycardia due to heart block, underwent pacemaker implantation 10/26/2019. He also has paroxysmal atrial fibrillation. He states he has been doing well, no issues with the pacemaker implant site at the left upper chest, such as pain, tenderness, swelling or drainage. No symptoms attributable to arrhythmia. No bleeding issues on the oral anticoagulation medication that he takes for stroke prevention from the atrial fibrillation. He denies chest pain, shortness of breath, orthopnea, palpitations, PND, lightheadedness or syncope. I have confirmed and edited as necessary, the PFSH and ROS obtained by others. PAST MEDICAL HISTORY Diagnosis Date Anticoagulant long-term use At risk for stroke Bradycardia 10/22/2019 CAD (coronary artery disease) CKD (chronic kidney disease) stage 2, GFR 60-89 ml/min Congenital absence of one kidney Controlled type 2 diabetes mellitus without complication, without long-term current use of insulin (HCC) Diabetes (HCC) HTN (hypertension) Mixed hyperlipidemia Paroxysmal atrial fibrillation (HCC) Poor high blood pressure control 12/18/2019 Presence of cardiac pacemaker 10/26/2019 [employer] dual-chamber pacemaker 10/26/2019; indication: symptomatic bradycardia due to second-degree AV block; MRI conditional after 6 weeks post implant Second degree atrioventricular block 10/26/2019 Tobacco use disorder 08/31/2005 PAST SURGICAL HISTORY Procedure Laterality Date BASIC PACEMAKER DUAL CHAMBER Left 10/26/2019 [employer] dual-chamber pacemaker; indication: symptomatic bradycardia due to second-degree AV block; MRI conditional after 6 weeks post implant[facility] (2) VEIN GRAFTS AND ARTERIAL GRAFT(S 08/09/2020 LEFT HEART CATH,PERCUTANEOUS 07/17/2020 UNLISTED PROCEDURE HUMERUS/ELBOW Left 1956 SOCIAL HISTORY Social History Tobacco Use Smoking status: Former Current packs/day: 0.00 Average packs/day: 0.5 packs/day for 40.0 years (20.0 ttl pk-yrs) Types: Cigarettes Start date: 08/25/1965 Quit date: 08/25/2005 Years since quittin.6 Smokeless tobacco: Never Vaping Use Vaping status: Never Used Substance Use Topics Alcohol use: No Drug use: No FAMILY HISTORY Problem Relation Age of Onset other (pacemaker) Brother Diabetes Mother Hypertension Mother Stroke Father Heart disease Brother PCI ALLERGIES: ALLERGIES Allergen Reactions Tape [Adhesive Tape* Rash MEDICATIONS: SITagliptin phosphate (JANUVIA) 50 mg tablet Take 1 tablet by mouth once daily. ELIQUIS 5 mg tab(s) Take 1 tablet by mouth twice daily amLODIPine (NORVASC) 10 mg tablet Take 1 tablet by mouth once daily atorvastatin (LIPITOR) 40 mg tablet Take 1 tablet by mouth once daily folic acid 1 mg tablet Take 1 tablet by mouth once daily carvedilol (COREG) 3.125 mg tablet take 1 tablet by mouth twice daily with meals FERREX 150 150 mg iron capsule Take 1 capsule by mouth once daily ascorbic acid, vitamin C, (VITAMIN C) 500 mg tablet Take 1 tablet by mouth once daily. MEDICATION, NON-DATABASE Take 1 tablet by mouth once daily. Stool softner aspirin, enteric coated (ASPIRIN, ENTERIC COATED) 81 mg EC tablet Take 1 tablet by mouth once daily. Review of Systems Constitutional: Negative for chills, fever and weight loss. Respiratory: Negative for cough, hemoptysis, sputum production and shortness of breath. Cardiovascular: Negative for chest pain, palpitations, orthopnea, claudication, leg swelling and PND. Gastrointestinal: Negative for abdominal pain, blood in stool, melena, nausea and vomiting. Genitourinary: Negative for dysuria, flank pain and hematuria. Musculoskeletal: Negative for falls. Skin: Negative for rash. Neurological: Negative for dizziness, focal weakness, seizures and loss of consciousness. PHYSICAL EXAMINATION: BP 147/74 Pulse 65 Ht 5' 10" (1.78m) Wt 152 lb (68.9kg) SpO2 98% BMI 21.81 kg/(m2). Physical Exam Vitals reviewed. Constitutional: General: He is not in acute distress. Appearance: Normal appearance. HENT: Head: Normocephalic and atraumatic. Cardiovascular: Rate and Rhythm: Normal rate and regular rhythm. Heart sounds: S1 normal and S2 normal. Murmur heard. Systolic murmur is present with a grade of 1/6. No friction rub. Comments: pacemaker site left upper chest without erythema, warmth, tenderness, swelling, drainage or skin erosion Pulmonary: Effort: Pulmonary effort is normal. No respiratory distress. Breath sounds: Normal breath sounds. No wheezing, rhonchi or rales. Musculoskeletal: Cervical back: Neck supple. Right lower leg: No edema. Left lower leg: No edema. Skin: General: Skin is warm and dry. Neurological: General: No focal deficit present. Mental Status: He is alert and oriented to person, place, and time. Psychiatric: Mood and Affect: Mood normal. Behavior: Behavior normal. Thought Content: Thought content normal. CARDIOVASCULAR MEDICINE TESTING: Electrocardiogram: Ventricular pacing 70 bpm; underlying atrial rhythm is likely atrial flutter; ventricular paced QRS duration 186 ms; ventricular paced QTc 527 ms Device Check: pacemaker evaluation by [facility] dated today 04/22/2024, encounter summary copied here: "PPM check, dual lead system with programming. ID x2 for routine PM evaluation. Offers no complaints. Left chest pocket without signs of infection. Presenting rhythm AFL/NUTRITION REPRESENTATIVE @ 70 ppm; RV pacing 99%. Interrogation shows no VHRs since last check 02-14-24. Mode switch ongoing since 03-10-24. Per pt takes apixaban and ASA 81mg. Estimated battery longevity 4 years. Lead impedances, RA sensing and RV pacing threshold stable, no changes made. Unable to measure RA threshold d/t AFL; unable to measure RV sensing d/t lack of R wave when rate decreased. Counters cleared. Discussed afl/anticoagulants and reviewed remote monitoring; questions answered. Ryanrmeghan" I have personally reviewed the Electrocardiogram and Device Check. I spent a total of 30 minutes on the date of the service which included preparing to see the patient, [id number] patient care, completing clinical documentation, obtaining and/or reviewing separately obtained history, performing a medically appropriate examination, counseling and educating the patient/family/caregiver, ordering medications, tests, or procedures, communicating with other HCPs (not separately reported), independently interpreting results (not separately reported), communicating results to the patient/family/caregiver, and care coordination (not separately reported). 1. Bradycardia - ICD9: 427.89, ICD10: R00.1 (primary diagnosis) 2. Second degree atrioventricular block - ICD9: 426.13, ICD10: I44.1 3. Presence of cardiac pacemaker - ICD9: V45.01, ICD10: Z95.0 4. Paroxysmal atrial fibrillation (HCC) - ICD9: 427.31, ICD10: I48.0 5. At risk for stroke - ICD9: V15.89, ICD10: Z91.89 6. Anticoagulant long-term use - ICD9: V58.61, ICD10: Z79.01 7. Coronary artery disease involving turtle mountain coronary artery of turtle mountain heart without angina pectoris - ICD9: 414.01, ICD10: I25.10 8. S/P CABG x 2 - ICD9: V45.81, ICD10: Z95.1 CHADS2-Vasc Score Breakdown 5 Total Score 2 Age >= 75 years old 1 History of hypertension 1 History of diabetes mellitus 1 History of vascular disease IMPRESSION: Mr. Mejia is stable with regards to arrhythmia. He is not aware of any symptoms suggestive of substantial arrhythmia. Mr. Mejia is being treated with oral anticoagulation for stroke prevention, and the risk:benefit of such treatment still seems to be favorable. The pacemaker is showing normal function and the implant site looks fine by examination today. He was previously followed by Dr. Mata of [facility], has not followed up with her in several years. He prefers a location closer to his home, such as [place] or [place]. I will send a referral for him to be established with one of our General or Interventional Cardiologists for his CAD and previous CABG. Presently he seems stable in this regard as well. I had a detailed discussion with Mr. Mejia regarding my evaluation and recommendations. After our discussion, Mr. Mejia expressed his understanding and I answered all his questions to his apparent satisfaction. PLAN AND RECOMMENDATIONS: 1) Continue with current plan of care from EP standpoint. 20 He will continue to follow up with [facility] under my supervision. 3) General cardiology or Interventional Cardiology follow up, either [place] (Dr. Nayak) or at [facility] office. Return in about 1 year (around 04/22/2025) for Dr. Robles, [facility] office with same day Device Clinic for pacemaker evaluation. Hedy Robles MD 04/22/2024 Medical Decision Making: Problems: Moderate: 2+ stable chronic illnesses Data: Unique source(s) for external note(s) reviewed: 1 Unique test result(s) reviewed: 2 Unique test(s) ordered: 1 Risk: Moderate: Moderate risk from testing/treatment and Drug management Medical Decision Making Level: 4 - Moderate CNOV Observed: 04/22/2024 8:40 AM Status: COMPLETED Source: [facility] Office Visit (AGCARDPOB) SHARON MEJIA ([id number]) 1950 M Date Time Provider Department 04/22/24 8:40 AM HEDY ROBLES AGCARDPOB During your visit today, we recorded the following information about you: Pulse Blood pressure Weight Height 65/minute 147/74 68.9 kg 1.778 m Meena Chauhan MA 04/22/2024 8:35 AM Signed Patient has no cardiac complaints today. Hedy Robles MD 04/24/2024 12:49 PM Signed PRIMARY CARE PHYSICIAN: Taylor Pierson [address] [place] [address] Patient Care Team: Taylor Pierson APRN.CNP as PCP - General (Family Medicine) Hedy Robles MD as Specialty Head Cd Reactor Operator (Cardiology) Bryant Lockwood MD as Specialty Head Cd Reactor Operator (Nephrology) CHIEF COMPLAINT: Follow up for arrhythmia HISTORY OF PRESENT ILLNESS: Mr. Mejia is a 74 year old male who presents today for a cardiovascular medicine follow-up visit. Mr. Mejia has a history of symptomatic bradycardia due to heart block, underwent pacemaker implantation 10/26/2019. He also has paroxysmal atrial fibrillation. He states he has been doing well, no issues with the pacemaker implant site at the left upper chest, such as pain, tenderness, swelling or drainage. No symptoms attributable to arrhythmia. No bleeding issues on the oral anticoagulation medication that he takes for stroke prevention from the atrial fibrillation. He denies chest pain, shortness of breath, orthopnea, palpitations, PND, lightheadedness or syncope. I have confirmed and edited as necessary, the PFSH and ROS obtained by others. PAST MEDICAL HISTORY Diagnosis Date Anticoagulant long-term use At risk for stroke Bradycardia 10/22/2019 CAD (coronary artery disease) CKD (chronic kidney disease) stage 2, GFR 60-89 ml/min Congenital absence of one kidney Controlled type 2 diabetes mellitus without complication, without long-term current use of insulin (HCC) Diabetes (HCC) HTN (hypertension) Mixed hyperlipidemia Paroxysmal atrial fibrillation (HCC) Poor high blood pressure control 12/18/2019 Presence of cardiac pacemaker 10/26/2019 [employer] dual-chamber pacemaker 10/26/2019; indication: symptomatic bradycardia due to second-degree AV block; MRI conditional after 6 weeks post implant Second degree atrioventricular block 10/26/2019 Tobacco use disorder 08/31/2005 PAST SURGICAL HISTORY Procedure Laterality Date BASIC PACEMAKER DUAL CHAMBER Left 10/26/2019 [employer] dual-chamber pacemaker; indication: symptomatic bradycardia due to second-degree AV block; MRI conditional after 6 weeks post implant; [facility] Dr. Robles CABG (2) VEIN GRAFTS AND ARTERIAL GRAFT(S 08/09/2020 LEFT HEART CATH,PERCUTANEOUS 07/17/2020 UNLISTED PROCEDURE HUMERUS/ELBOW Left 7 SOCIAL HISTORY Social History Tobacco Use Smoking status: Former Current packs/day: 0.00 Average packs/day: 0.5 packs/day for 40.0 years (20.0 ttl pk-yrs) Types: Cigarettes Start date: 08/25/1965 Quit date: 08/25/2005 Years since quittin.6 Smokeless tobacco: Never Vaping Use Vaping status: Never Used Substance Use Topics Alcohol use: No Drug use: No FAMILY HISTORY Problem Relation Age of Onset other (pacemaker) Brother Diabetes Mother Hypertension Mother Stroke Father Heart disease Brother PCI ALLERGIES: ALLERGIES Allergen Reactions Tape [Adhesive Tape* Rash MEDICATIONS: SITagliptin phosphate (JANUVIA) 50 mg tablet Take 1 tablet by mouth once daily. ELIQUIS 5 mg tab(s) Take 1 tablet by mouth twice daily amLODIPine (NORVASC) 10 mg tablet Take 1 tablet by mouth once daily atorvastatin (LIPITOR) 40 mg tablet Take 1 tablet by mouth once daily folic acid 1 mg tablet Take 1 tablet by mouth once daily carvedilol (COREG) 3.125 mg tablet take 1 tablet by mouth twice daily with meals FERREX 150 150 mg iron capsule Take 1 capsule by mouth once daily ascorbic acid, vitamin C, (VITAMIN C) 500 mg tablet Take 1 tablet by mouth once daily. MEDICATION, NON-DATABASE Take 1 tablet by mouth once daily. Stool softner aspirin, enteric coated (ASPIRIN, ENTERIC COATED) 81 mg EC tablet Take 1 tablet by mouth once daily. Review of Systems Constitutional: Negative for chills, fever and weight loss. Respiratory: Negative for cough, hemoptysis, sputum production and shortness of breath. Cardiovascular: Negative for chest pain, palpitations, orthopnea, claudication, leg swelling and PND. Gastrointestinal: Negative for abdominal pain, blood in stool, melena, nausea and vomiting. Genitourinary: Negative for dysuria, flank pain and hematuria. Musculoskeletal: Negative for falls. Skin: Negative for rash. Neurological: Negative for dizziness, focal weakness, seizures and loss of consciousness. PHYSICAL EXAMINATION: BP 147/74 Pulse 65 Ht 5' 10" (1.78m) Wt 152 lb (68.9kg) SpO2 98% BMI 21.81 kg/(m2). Physical Exam Vitals reviewed. Constitutional: General: He is not in acute distress. Appearance: Normal appearance. HENT: Head: Normocephalic and atraumatic. Cardiovascular: Rate and Rhythm: Normal rate and regular rhythm. Heart sounds: S1 normal and S2 normal. Murmur heard. Systolic murmur is present with a grade of 1/6. No friction rub. Comments: pacemaker site left upper chest without erythema, warmth, tenderness, swelling, drainage or skin erosion Pulmonary: Effort: Pulmonary effort is normal. No respiratory distress. Breath sounds: Normal breath sounds. No wheezing, rhonchi or rales. Musculoskeletal: Cervical back: Neck supple. Right lower leg: No edema. Left lower leg: No edema. Skin: General: Skin is warm and dry. Neurological: General: No focal deficit present. Mental Status: He is alert and oriented to person, place, and time. Psychiatric: Mood and Affect: Mood normal. Behavior: Behavior normal. Thought Content: Thought content normal. CARDIOVASCULAR MEDICINE TESTING: Electrocardiogram: Ventricular pacing 70 bpm; underlying atrial rhythm is likely atrial flutter; ventricular paced QRS duration 186 ms; ventricular paced QTc 527 ms Device Check: pacemaker evaluation by [facility] dated today 04/22/2024, encounter summary copied here: "PPM check, dual lead system with programming. ID x2 for routine PM evaluation. Offers no complaints. Left chest pocket without signs of infection. Presenting rhythm AFL/NUTRITION REPRESENTATIVE @ 70 ppm; RV pacing 99%. Interrogation shows no VHRs since last check 02-14-24. Mode switch ongoing since 03-10-24. Per pt takes apixaban and ASA 81mg. Estimated battery longevity 4 years. Lead impedances, RA sensing and RV pacing threshold stable, no changes made. Unable to measure RA threshold d/t AFL; unable to measure RV sensing d/t lack of R wave when rate decreased. Counters cleared. Discussed afl/anticoagulants and reviewed remote monitoring; questions answered. Ryanrmeghan" I have personally reviewed the Electrocardiogram and Device Check. I spent a total of 30 minutes on the date of the service which included preparing to see the patient, [id number] patient care, completing clinical documentation, obtaining and/or reviewing separately obtained history, performing a medically appropriate examination, counseling and educating the patient/family/caregiver, ordering medications, tests, or procedures, communicating with other HCPs (not separately reported), independently interpreting results (not separately reported), communicating results to the patient/family/caregiver, and care coordination (not separately reported). 1. Bradycardia - ICD9: 427.89, ICD10: R00.1 (primary diagnosis) 2. Second degree atrioventricular block - ICD9: 426.13, ICD10: I44.1 3. Presence of cardiac pacemaker - ICD9: V45.01, ICD10: Z95.0 4. Paroxysmal atrial fibrillation (HCC) - ICD9: 427.31, ICD10: I48.0 5. At risk for stroke - ICD9: V15.89, ICD10: Z91.89 6. Anticoagulant long-term use - ICD9: V58.61, ICD10: Z79.01 7. Coronary artery disease involving turtle mountain coronary artery of turtle mountain heart without angina pectoris - ICD9: 414.01, ICD10: I25.10 8. S/P CABG x 2 - ICD9: V45.81, ICD10: Z95.1 CHADS2-Vasc Score Breakdown 5 Total Score 2 Age >= 75 years old 1 History of hypertension 1 History of diabetes mellitus 1 History of vascular disease IMPRESSION: Mr. Mejia is stable with regards to arrhythmia. He is not aware of any symptoms suggestive of substantial arrhythmia. Mr. Mejia is being treated with oral anticoagulation for stroke prevention, and the risk:benefit of such treatment still seems to be favorable. The pacemaker is showing normal function and the implant site looks fine by examination today. He was previously followed by Dr. Mata of [facility], has not followed up with her in several years. He prefers a location closer to his home, such as [place] or [place]. I will send a referral for him to be established with one of our General or Interventional Cardiologists for his CAD and previous CABG. Presently he seems stable in this regard as well. I had a detailed discussion with Mr. Mejia regarding my evaluation and recommendations. After our discussion, Mr. Mejia expressed his understanding and I answered all his questions to his apparent satisfaction. PLAN AND RECOMMENDATIONS: 1) Continue with current plan of care from EP standpoint. 20 He will continue to follow up with [facility] under my supervision. 3) General cardiology or Interventional Cardiology follow up, either [place] (Dr. Nayak) or at [facility] office. Return in about 1 year (around 04/22/2025) for Dr. Robles, [facility] office with same day Device Clinic for pacemaker evaluation. Hedy Robles MD 04/22/2024 Medical Decision Making: Problems: Moderate: 2+ stable chronic illnesses Data: Unique source(s) for external note(s) reviewed: 1 Unique test result(s) reviewed: 2 Unique test(s) ordered: 1 Risk: Moderate: Moderate risk from testing/treatment and Drug management Medical Decision Making Level: 4 - Moderate Referring Provider: TAYLOR PIERSON [[id number]] Allergies As of Date: 04/22/2024 Noted Allergy Reaction TAPE (ADHESIVE TAPE-SILICONES) 11/03/2019 2 - Rash Date Reviewed: 04/22/2024 Reviewed by: Meena Chauhan MA - Fully Assessed Reason for Visit: CARD Follow Up Annual [1232] Primary Visit Diagnosis:Bradycardia [R00.1] Other Visit Diagnoses:Second degree atrioventricular block [I44.1] Presence of cardiac pacemaker [Z95.0] Paroxysmal atrial fibrillation (HCC) [I48.0] At risk for stroke [Z91.89] Anticoagulant long-term use [Z79.01] Coronary artery disease involving turtle mountain coronary artery of turtle mountain heart without angina pectoris [I25.10] S/P CABG x 2 [Z95.1] Order(s):ECG B/O W INTERP (MED OFFICE) [ECG06] Order #: [id number] CONSULT TO CARDIOLOGY [9004] Order #: [id number]: 1 FUTURE Prescriptions as of 04/24/2024 - SITagliptin phosphate (JANUVIA) 50 mg tablet Take 1 tablet by mouth once daily. - ELIQUIS 5 mg tab(s) Take 1 tablet by mouth twice daily - amLODIPine (NORVASC) 10 mg tablet Take 1 tablet by mouth once daily - atorvastatin (LIPITOR) 40 mg tablet Take 1 tablet by mouth once daily - folic acid 1 mg tablet Take 1 tablet by mouth once daily - carvedilol (COREG) 3.125 mg tablet take 1 tablet by mouth twice daily with meals - FERREX 150 150 mg iron capsule Take 1 capsule by mouth once daily - ascorbic acid, vitamin C, (VITAMIN C) 500 mg tablet Take 1 tablet by mouth once daily. - MEDICATION, NON-DATABASE Take 1 tablet by mouth once daily. Stool softner - aspirin, enteric coated (ASPIRIN, ENTERIC COATED) 81 mg EC tablet Take 1 tablet by mouth once daily. Meds Comments as of 08/17/2020: 08/17/20 The medications are managed by this patient by: PATIENT and SPOUSE Loreto Dash Pharmacist Problem List As Of Date 04/22/2024 Noted Resolved Tobacco use disorder [F17.200] 08/31/2005 03/14/2020 UTI (URINARY TRACT INFECTION) [N39.0] 08/31/2005 03/14/2016 Essential hypertension, benign [I10] 08/31/2005 Bradycardia [R00.1] 10/22/2019 Second degree atrioventricular block [I44.1] 10/26/2019 HTN (hypertension) [I10] Type 2 diabetes mellitus with stage 3 chronic k* Presence of cardiac pacemaker [Z95.0] 10/26/2019 Chest tightness [R07.89] 11/08/2019 11/09/2019 Lightheadedness [R42] 11/08/2019 11/09/2019 Dizziness [R42] 11/08/2019 11/09/2019 Neurogenic bladder [N31.9] 11/20/2019 Self-catheterizes urinary bladder [Z78.9] 11/20/2019 Acute congestive heart failure (HCC) [I50.9] 11/20/2019 06/17/2020 Poor high blood pressure control [I10] 12/18/2019 02/12/2021 Stage 3a chronic kidney disease (HCC) [N18.31] 12/31/2019 Unequal blood pressures in paired extremities [*12/31/2019 Paroxysmal atrial fibrillation (HCC) [I48.0] At risk for stroke [Z91.89] Anticoagulant long-term use [Z79.01] Hyperlipidemia, mixed [E78.2] 06/21/2020 Unstable angina (HCC) [I20.0] 07/16/2020 07/18/2020 Bilateral carotid bruits [R09.89] 07/22/2020 Atherosclerosis of turtle mountain artery of extremity w*07/22/2020 Chest pain [R07.9] 07/25/2020 08/15/2020 SOB (shortness of breath) [R06.02] 07/25/2020 Anemia [D64.9] 08/09/2020 Malnutrition of mild degree (HCC) [E44.1] 08/10/2020 02/12/2021 S/P CABG x 2 [Z95.1] 08/11/2020 CKD (chronic kidney disease) Stage 3, GFR 30-59*09/19/2020 Hypertensive kidney disease with stage 3 chroni*02/08/2022 CAD (coronary artery disease) [I25.10] Encounter for care of pacemaker [Z45.018] 04/02/2023 Visit Notes: >> Meena Chauhan MA Wed Apr 22, 2024 8:31 AM Status: Signed Patient has no cardiac complaints today. Level of Service: OFFICE/OUTPATIENT ESTABLISHED MOD MDM 30 MIN [53000] Disposition: Return in about 1 year (around 04/22/2025) for [facility] office with same day Device Clinic for pacemaker evaluation. LOS History for Encounter Level of Service: OFFICE/OUTPATIENT ESTABLISHED MOD MDM 30 MIN[30576] Date AND Time: 04-22-2024 9:03 AM Recorded by User: HEDY ROBLES Follow-up and Disposition History for Encounter Date Provider Department Center 04/22/2024 6105-HEDY ROBLES Sanchez AGCARDPOB Ag Pob Letter Text Encounter Status:Closed by HEDY ROBLES on 04/24/24 PROGRESS Observed: 04/13/2024 11:24 AM Status: COMPLETED Source: [facility] HNO ID: [id number] Author: TAYLOR PIERSON APRN.CNP Service: ? Author Type: Nurse Practitioner Type: Progress Notes Filed: 04/13/2024 11:24 Note Text: Please notify the patient that I sent in a refill for him but he is due for an office visit. PROGRESS Observed: 04/13/2024 11:01 AM Status: COMPLETED Source: [facility] HNO ID: [id number] Author: HARVEY MANCIA RN Service: ? Author Type: Registered Nurse Type: Progress Notes Filed: 04/13/2024 11:05 Note Text: [facility] POPULATION HEALTH NAVIGATION OUTREACH Action/I Medication Adherence - MAD; Deny due for refill as of 03/29/2024. 0 Fills remaining. Routing to PCP for review Patient Identified by Name and : Yes, via EPIC - no outreach needed Reason for Outreach Care Gap or Scheduling Wellness Visits Med Adherence MAD Care Gap Reviewed:: Diabetic Eye Exam HBA1C/GMI KED (UACR/eGFR) Outreach Outcome/Action Routed to PCP for review Population Health Navigation Workflow Chart Review Payer: [facility] Navigation Signature: Harvey Mancia RN April 13, 2024 11:01 AM CNPTOUTREACH Observed: 04/13/2024 12:00 AM Status: COMPLETED Source: [facility] Patient Outreach (AGFAMPLE) SHARON MEJIA ([id number]) 1950 M Date Time Provider Department 04/13/24 HARVEY MANCIA During your visit today, we recorded the following information about you: Harvey Mancia RN 04/13/2024 11:05 AM Signed [facility] POP[facility] HEALTH NAVIGATION OUTREACH Action/FYI Medication Adherence - MAD; Januvia due for refill as of 03/29/2024. 0 Fills remaining. Routing to PCP for review Patient Identified by Name and : Yes, via EPIC - no outreach needed Reason for Outreach Care Gap or Scheduling Wellness Visits Med Adherence MAD Care Gap Reviewed:: Diabetic Eye Exam HBA1C/GMI KED (UACR/eGFR) Outreach Outcome/Action Routed to PCP for review Population Health Navigation Workflow Chart Review Payer: [facility] Navigation Signature: Harvey Mancia RN April 13, 2024 11:01 AM Taylor Pierson APRN.CNP 04/13/2024 11:24 AM Signed Please notify the patient that I sent in a refill for him but he is due for an office visit. Taylor Pierson APRN.CNP 04/13/2024 11:25 AM Signed Addended by: TAYLOR PIERSON on: 04/13/2024 11:25 AM Modules accepted: Orders Allergies As of Date: 04/13/2024 Noted Allergy Reaction TAPE (ADHESIVE TAPE-SILICONES) 11/03/2019 2 - Rash Date Reviewed: 08/19/2023 Reviewed by: Taylor Pierson APRN.GENERAL EDUCATION INSTRUCTOR - Fully Assessed Reason for Visit: Population Health Navigation Outreach [3910] Cmt: [facility] Attributed Member - Medication Adherence Visit Diagnosis:Type 2 diabetes mellitus with stage 3a chronic kidney disease, without long-term current use of insulin (HCC) [E11.22, N18.31] Order(s):SITagliptin phosphate (JANUVIA) 50 mg tabletTake 1 tablet by mouth once daily.Disp: 90 tabletRfl: 1 Prescriptions as of 04/13/2024 - SITagliptin phosphate (JANUVIA) 50 mg tablet Take 1 tablet by mouth once daily. - ELIQUIS 5 mg tab(s) Take 1 tablet by mouth twice daily - amLODIPine (NORVASC) 10 mg tablet Take 1 tablet by mouth once daily - atorvastatin (LIPITOR) 40 mg tablet Take 1 tablet by mouth once daily - folic acid 1 mg tablet Take 1 tablet by mouth once daily - carvedilol (COREG) 3.125 mg tablet take 1 tablet by mouth twice daily with meals - FERREX 150 150 mg iron capsule Take 1 capsule by mouth once daily - ascorbic acid, vitamin C, (VITAMIN C) 500 mg tablet Take 1 tablet by mouth once daily. - MEDICATION, NON-DATABASE Take 1 tablet by mouth once daily. Stool softner - aspirin, enteric coated (ASPIRIN, ENTERIC COATED) 81 mg EC tablet Take 1 tablet by mouth once daily. Meds Comments as of 08/17/2020: 08/17/20 The medications are managed by this patient by: PATIENT and SPOUSE Loreto Dash Pharmacist Problem List As Of Date 04/13/2024 Noted Resolved Tobacco use disorder [F17.200] 08/31/2005 03/14/2020 UTI (URINARY TRACT INFECTION) [N39.0] 08/31/2005 03/14/2016 Essential hypertension, benign [I10] 08/31/2005 Bradycardia [R00.1] 10/22/2019 Second degree atrioventricular block [I44.1] 10/26/2019 HTN (hypertension) [I10] Type 2 diabetes mellitus with stage 3 chronic k* Presence of cardiac pacemaker [Z95.0] 10/26/2019 Chest tightness [R07.89] 11/08/2019 11/09/2019 Lightheadedness [R42] 11/08/2019 11/09/2019 Dizziness [R42] 11/08/2019 11/09/2019 Neurogenic bladder [N31.9] 11/20/2019 Self-catheterizes urinary bladder [Z78.9] 11/20/2019 Acute congestive heart failure (HCC) [I50.9] 11/20/2019 06/17/2020 Poor high blood pressure control [I10] 12/18/2019 02/12/2021 Stage 3a chronic kidney disease (HCC) [N18.31] 12/31/2019 Unequal blood pressures in paired extremities [*12/31/2019 Paroxysmal atrial fibrillation (HCC) [I48.0] At risk for stroke [Z91.89] Anticoagulant long-term use [Z79.01] Hyperlipidemia, mixed [E78.2] 06/21/2020 Unstable angina (HCC) [I20.0] 07/16/2020 07/18/2020 Bilateral carotid bruits [R09.89] 07/22/2020 Atherosclerosis of [place] artery of extremity w*07/22/2020 Chest pain [R07.9] 07/25/2020 08/15/2020 SOB (shortness of breath) [R06.02] 07/25/2020 Anemia [D64.9] 08/09/2020 Malnutrition of mild degree (HCC) [E44.1] 08/10/2020 02/12/2021 S/P CABG x 2 [Z95.1] 08/11/2020 CKD (chronic kidney disease) Stage 3, GFR 30-59*09/19/2020 Hypertensive kidney disease with stage 3 chroni*02/08/2022 CAD (coronary artery disease) [I25.10] Encounter for care of pacemaker [Z45.018] 04/02/2023 Prescriptions ordered this encounter Disp Refills Start End SITAGLIPTIN PHOSPHATE 50 MG TABLET 90 t* 1 04/13/2024 Route: ORAL Sig: Take 1 tablet by mouth once daily. Medications Discontinued During This Encounter Prescriptions - SITagliptin phosphate (JANUVIA) 50 mg tablet (Discontinued) Take 1 tablet by mouth once daily. Encounter Status:Closed by HARVEY MANCIA on 04/13/24 ALLERGIES DATE TYPE / CODE NAME / CODE REACTION SEVERITY SOURCE 11/03/2019 DRUG/[id number](S NOMED CT) ADHESIVE TAPE-SILICONES RASH [facility] ENCOUNTERS ADMIT/DISCHARGE ACCOUNT NUMBER ADMITTING ENCOUNTER CLASS LOC ATION SOURCE 12/31/2024/ 5 [id number] [facility] 12/31/2024/ 5 [id number] [facility] 12/31/2024/ 5 [id number] [facility]WOL[facility] 12/08/2024/ 5 [id number] [facility] 12/01/2024/ 5 [id number] [facility] 11/09/2024/ 5 [id number] [facility] 07/23/2024/ 5 [id number] [facility] [id number] [facility] 05/04/2024/ 4 [id number] [facility] 04/22/2024/ 4 [id number] [facility] 04/22/2024/ 4 [id number] [facility] PAYERS ENCOUNTER GUARANTOR PAYER SUBSCRIBER SOURCE 12/31/2024 Primary Insuranc e:[facility] MEDICARE ADVANTAGE OPolicy Number: [id number] Date:9020-80-43Hvty Name:Meghan FRANCO: [id number] [address] [facility] 12/31/2024 Primary Insuranc e:[facility] MEDICARE ADVANTAGE OPolicy Number: [id number] Date:3138-33-44Rzpk Name:Meghan FRANCO: [id number] [address] [facility] 12/31/2024 Primary Insuranc e:[facility] MEDICARE ADVANTAGE OPolicy Number: [id number] Date:8194-50-11Spsn Name:Meghan FRANCO: [id number] [address] [facility] 12/08/2024 Primary Insuranc e:[facility] MEDICARE ADVANTAGE HMOPolicy Number: [id number] Date:5603-43-25Igsr Name:Meghan FRANCO: [id number], [place] [address] [facility] 12/01/2024 Primary Insuranc e:[facility] MEDICARE ADVANTAGE HMOPolicy Number: [id number] Date:4684-23-68Ryta Name:Meghan FRANCO: [id number], [place] [address] [facility] 11/09/2024 Primary Insuranc e:[facility] MEDICARE ADVANTAGE HMOPolicy Number: [id number] Date:1185-21-75Pare Name:Meghan FRANCO: [id number], [place] [address] [facility] 07/23/2024 Primary Insuranc e:[facility] DUAL COMPLETE HMO POS SNPPolicy Number: [id number] Date:6804-47-77Bhtt Name:Meghan FRANCO: [id number], [place] [address] [facility] 05/05/2024 Primary Insuranc e:[facility] MEDICARE PPOPolicy Number: [id number] Date:5857-88-65Wexy Name:Meghan FRANCO: [id number], [place] [address] [facility] 05/04/2024 Primary Insuranc e:[facility] MEDICARE PPOPolicy Number: [id number] Date:8568-06-26Bvyj Name:Meghan FRANCO: [id number] [facility] [address] [address] [facility] 04/22/2024 Primary Insuranc e:[facility] MEDICARE PPOPolicy Number: [id number] Date:8665-84-22Xgrh Name:Meghan FRANCO: [id number] [facility] [address] [address] [facility] 04/22/2024 Primary Insuranc e:[employer] MEDICARE PPOPolicy Number: [id number] Date:4195-74-44Vyik Name:Meghan FRANCO: [id number] [address] [address] [facility]
--- OUTSIDE RECORDS SUMMARY | 2024-12-31 10:17 | XMS RPT_ITS ---
Author Name Auto Generated Organization OHIP Care Team Providers Care Shipping Weigher Name Role Phone JAKOB ROBLES Referring Unavailable QUEDEN, TAYLOR A Primary Care Unavailable TRAVISJAKOB Attending Unavailable SCHWEIKERT, HEDY A Referring Unavailable QUEDEN, TAYLOR A Primary Care Unavailable QUEDEN, TAYLOR A Primary Care Unavailable TRAVISJAKOB Referring Unavailable TRAVIS, JAKOB JIMÉNEZ Referring Unavailable QUEDEN, TAYLOR A Primary Care Unavailable QUEDEN, TAYLOR A Referring Unavailable QUEDEN, TYALOR A Primary Care Unavailable QUEDEN, TAYLOR A [...] DATE TYPE CONDITION / CODE ATTENDING STATUS [facility] 08/15/2020 Active Paroxysmal atria l fibrillation (HCC) / I48.0(ICD-10) NA Active [facility] 12/31/2024 Active Screening for pr ostate cancer / Z12.5(ICD-10) NA Active [facility] 12/08/2024 Active Screening for co rain cancer / Z12.11(ICD-10) KAJAL REMY Active [facility] 02/08/2022 Active Type 2 diabetes mellitus with stage 3 chronic kidney disease, without long-term current use of insulin, unspecified whether stage 3a or 3b CKD (HCC) / E11.22(ICD-10) KENNA TAYLOR Sanchez Active [facility] 02/08/2022 Active Type 2 diabetes mellitus with stage 3 chronic kidney disease, without long-term current use of insulin, unspecified whether stage 3a or 3b CKD (HCC) / N18.30(ICD-10) TAYLOR PIERSON [facility] 09/19/2020 Active Stage 3 chronic kidney disease, unspecified whether stage 3a or 3b CKD (HCC) / N18.30(ICD-10) TAYLOR PIERSON [facility] 08/15/2020 Active Presence of card iac pacemaker / Z95.0(ICD-10) TAYLOR PIERSON [facility] 08/15/2020 Active Anemia, unspecif ied type / D64.9(ICD-10) TAYLOR PIERSON [facility] 06/20/2020 Active Anticoagulant lo ng-term use / Z79.01(ICD-10) TAYLOR PIERSON [facility] 02/19/2022 Active Coronary artery disease involving chitina coronary artery of chitina heart without angina pectoris / I25.10(ICD-10) JAKOB ROBLES Active [facility] 08/15/2020 Active Hyperlipidemia, mixed / E78.2(ICD-10) JAKOB ROBLES Active [facility] 08/15/2020 Active Essential hypert ension, benign / I10(ICD-10) JAKOB ROBLES Active [facility] 08/15/2020 Active S/P CABG x 2 / Z95.1(ICD-10) JAKOB ROBLES Active [facility] 07/22/2020 Active Bilateral caroti d bruits / R09.89(ICD-10) JAKOB ROBLES Active [facility] 07/23/2024 Active Heart block / I45.9(ICD-10) [facility] 02/08/2022 Active Type 2 diabetes mellitus with stage 3a chronic kidney disease, without long-term current use of insulin (HCC) / E11.22(ICD-10) [facility] 02/08/2022 Active Type 2 diabetes mellitus with stage 3a chronic kidney disease, without long-term current use of insulin (HCC) / N18.31(ICD-10) [facility] 05/05/2024 Active Hypertension, es sential / I10(ICD-10) NA Active [facility] 06/17/2020 Active At risk for stro ke / Z91.89(ICD-10) HEDY ROBLES Active [facility] 10/26/2019 Active Bradycardia / R00.1(ICD-10) HEDY ROBLES Active [facility] 10/26/2019 Active Second degree atrioventricular block / I44.1(ICD-10) HEDY ROBLES Active [facility] 04/22/2024 Active HB (heart block) / I45.9(ICD-10) NA Active [facility] PROCEDURES No Procedure Records Found RESULTS PROGRESS Observed: 03/02/2025 4:57 PM Status: COMPLETED Source: [facility] HNO ID: [id number] Author: ES DAWN RN Service: ? Author [...] seen in the Emergency Department (ED) Location: [facility] Date: 03/01/25 Reason for ED Visit: [...] provided with appropriate counseling: Yes Based on daycare provider, the following disposition is advised: No symptoms or symptoms present, not severe. Routed to: No Action Needed Action: ED follow up appointment scheduled 03/23/25 Es Dawn RN March 02, 2025 5:06 PM CNPTOUTREACH Observed: 03/02/2025 12:00 AM Status: COMPLETED Source: [facility] Patient Outreach (AGACM) SHARON MEJIA ([id number]) 1950 M Date Time Provider Department 03/02/25 [...] seen in the Emergency Department (ED) Location: [facility] Date: 03/01/25 Reason for ED Visit: [...] provided with appropriate counseling: Yes Based on daycare provider, the following disposition is advised: No symptoms or symptoms present, not severe. Routed to: No Action Needed Action: ED follow up appointment scheduled 03/23/25 Es Dawn RN March 02, 2025 5:06 PM Allergies As of Date: 03/02/2025 Noted Allergy Reaction TAPE (ADHESIVE TAPE-SILICONES) 11/03/2019 2 - Rash Date Reviewed: 12/08/2024 Reviewed by: Dalila Harp LPN - Fully Assessed Reason for Visit: Insert Molding Operator Ed Follow Up [7633] Cmt: ED Follow up call Prescriptions as [...] Bilateral carotid bruits [R09.89] 07/22/2020 Atherosclerosis of chitina artery of extremity w*07/22/2020 Chest pain [R07.9] 07/25/2020 08/15/2020 SOB (shortness of breath) [R06.02] 07/25/2020 Anemia [D64.9] 08/09/2020 Malnutrition of mild degree (HCC) [E44.1] 08/10/2020 02/12/2021 S/P CABG x 2 [Z95.1] 08/11/2020 CKD (chronic kidney disease) Stage 3, GFR 30-59*09/19/2020 Hypertensive kidney disease with stage 3 chroni*02/08/2022 CAD (coronary artery disease) [I25.10] Encounter for care of pacemaker [Z45.018] 04/02/2023 Encounter Status:Closed by ES ADWN on 03/02/25 ECHO Observed: 12/31/2024 10:26 AM Status: F Source: [facility] Echocardiography Report: Tra nsthoracic Echo [facility] Date of service: 12/31/2024 10:26:03 AM ANALYST Ordering physician: JAKOB ROBLES Exam indication: CAD Technologist: Noemí Polanco [facility] Interpreting physician: Ayush Crum MD PATIENT: [...] * * * Final * * * [employer] [facility] : [id number] US CAROTID ARTERIES [facility] Observed: 12/31/2024 9:41 AM Status: F Source: [facility] Non-Invasive Vascular Labor[facility] Carotid Duplex Bilateral/Complete Date of service/time: [...] of evaluation. Technologist: Jacinda Fonseca RVT, [facility] Ordering physician: JAKOB ROBLES Interpreting physician: Ibrahima Mejia MD, RPVI Final CC [employer] [facility] : [id number] See Link below for Image PSA/PROSTATE SPECIFIC ANTIGEN SCREENING Collected: 12/31/2024 9:28 AM Status: F Source: [facility] Order Comment: Specimen Type : BLOOD SPECIMEN Ordering Facility: [facility] Address: [address] [place] [address] TYPE CODE TESTS RESULT OUT OF RANGE REFERENCE UNITS LAB 2857-1(LOINC) PSA [facility] 5.23 High <2.60 ng/mL Result Comment: Total [...] 2003,349:335-42. Performed By: #### PSAS1 ### # [facility] CLIA [id number] [address] [facility] [address] [place] COMP METAB 2000 PNL SERPL Collected: 9:28 AM Status: F Source: [facility] Order Comment: Specimen Type : BLOOD SPECIMEN Ordering Facility: [facility] Address: [address] [place] [address] TYPE CODE TESTS RESULT OUT OF RANGE REFERENCE UNITS LAB 2885-2(LOINC) Prot SerPl-mCnc 7.0 6.3-8.0 g/dL LAB 1751-7(LOINC) Albumin SerPl-mCnc 4.4 3.9-4.9 g/dL LAB 96871-9(LOINC) Calcium SerPl-mCnc 9.5 8.5-10.2 mg/dL LAB 1975-2(LOINC) Bilirub SerPl-mCnc 0.3 0.2-1.3 mg/dL LAB 6768-6(LOINC) ALP SerPl-cCnc 120 High 38-113 U/L LAB 1920-8(LOINC) AST SerPl-cCnc 16 14-40 U/L LAB 1742-6(LOINC) ALT SerPl-cCnc 12 10-54 U/L LAB 2345-7(LOINC) Glucose SerPl-mCnc 154 High 74-99 mg/dL Result Comment: The [place] Diabetes Association (ADA) provides guidance for cutoff [...] Standards of Medical Care in Diabetes 2016, [place] Diabetes Association. Diabetes Care. 2016.39(Suppl 1). LAB 3094-0(LOINC) BUN SerPl-mCnc 24 9-24 mg/dL LAB 2160-0(LOINC) Creat SerPl-mCnc 1.47 High 0.73-1.22 mg/dL LAB 2951-2(LOINC) Sodium SerPl-sCnc 140 136-144 mmol/L LAB 2823-3(LOINC) Potassium SerPl-sCnc 4.1 3.7-5.1 mmol/L LAB 2075-0(LOINC) Chloride SerPl-sCnc 104 98-107 mmol/L LAB 2028-9(LOINC) CO2 SerPl-sCnc 22 22-30 mmol/L LAB 98654-8(LOINC) Anion Gap SerPl-sCnc 14 8-15 mmol/L LAB 06263-3(LOINC) eGFRcr SerPlBld CKD-EPI 2020 49 Low >=60 [...] accurately reflect actual GFR. Performed By: #### 33299-9 # ### [facility] CLIA [id number] [address] [place] [address] [place] LIPID 1996 PNL SERPL Collected: 025 9:28 AM Status: F Source: [facility] Order Comment: Specimen Type : BLOOD SPECIMEN Ordering Facility: [facility] Address: [address] [place] [address] TYPE CODE TESTS RESULT OUT OF RANGE [...] is calculated using the Crowe-NIH equation. LAB 30960-3(LOINC) NonHDLc SerPl-mCnc 105 <130 mg/dL Result Comment: <130 mg/dL, Optimal 130-159 mg/dL, Near optimal/above optimal 160-189 mg/dL, Borderline high 190-219 mg/dL, High >219 mg/dL, Very high Secondary prevention optimal non HDL Cholesterol levels are recommended to be <100 mg/dL LAB 34276-2(LOINC) VLDLc SerPl Calc-mCnc 13 <30 mg/dL LAB 9830-1(LOINC) Cholest/HDLc SerPl 2.57 <5.10 LAB 03063-9(LOINC) LDLc/HDLc SerPl 1.34 <2.54 Result Comment: Reference: 1. National Cholesterol Education Program ATP III Guideline At-A-Glance Quick Desk Reference: National Heart, Lung, and Blood [place]. National Institutes of Health. 2001: NIH Publication No. 01-3305. 2. An International Atherosclerosis Society position paper: global recommendations for the management of dyslipidemia: executive summary, Atherosclerosis. 2014: 232(2):410-413. LAB FT FASTING TIME 12 hrs Performed By: #### 39521-8 # ### [facility] CLIA [id number] [address] [place] [address] [place] [facility] CLIA [id number] [address] [place] PROGRESS Observed: 12/08/2024 3:03 PM Status: COMPLETED Source: [facility] HNO ID: [id number] Author: KAJAL REMY MD Service: ? Author [...] control 12/18/2019 Presence of cardiac pacemaker 10/26/2019 [employer] dual-chamber pacemaker 10/26/2019; indication: symptomatic bradycardia due to second-degree AV block; MRI conditional after 6 weeks post implant Second degree atrioventricular block 10/26/2019 Tobacco use disorder 08/31/2005 PAST SURGICAL HISTORY Procedure Laterality Date BASIC PACEMAKER DUAL CHAMBER Left 10/26/2019 [employer] dual-chamber pacemaker; indication: symptomatic bradycardia due [...] discussed with the Patient or Patient's Authorized Supervisor Throwing Department. As applicable, any other physician, advance practice provider, medical student, or other health professional student that will be observing or involved in the sensitive examination for educational or training purposes was discussed with the Patient or Authorized Supervisor Throwing Department. The Patient or Authorized Supervisor Throwing Department has agreed to proceed with the sensitive [...] will be scheduled for the procedure at [facility]. Diagnoses: (Z12.11) Screening for colon cancer [...] 3:00 PM Status: COMPLETED Source: [facility] Office Visit ([place]) SHARON MEJIA ([id number]) 1950 M Date Time Provider Department 12/08/24 [...] control 12/18/2019 Presence of cardiac pacemaker 10/26/2019 [employer] dual-chamber pacemaker 10/26/2019; indication: symptomatic bradycardia due to second-degree AV block; MRI conditional after 6 weeks post implant Second degree atrioventricular block 10/26/2019 Tobacco use disorder 08/31/2005 PAST SURGICAL HISTORY Procedure Laterality Date BASIC PACEMAKER DUAL CHAMBER Left 10/26/2019 [employer] dual-chamber pacemaker; indication: symptomatic bradycardia due to second-degree AV block; MRI conditional after 6 weeks post implant[facility] Robles CABG (2) VEIN GRAFTS AND [...] discussed with the Patient or Patient's Authorized Supervisor Throwing Department. As applicable, any other physician, advance practice provider, medical student, or other health professional student that will be observing or involved in the sensitive examination for educational or training purposes was discussed with the Patient or Authorized Supervisor Throwing Department. The Patient or Authorized Supervisor Throwing Department has agreed to proceed with the sensitive [...] will be scheduled for the procedure at [facility]. Diagnoses: (Z12.11) Screening for colon cancer [...] am on dialysis? A: Please consult your tap dancer prior to scheduling to get instructions pertinent to you. In general, dialysis patients take the [employer] bowel prep and have the procedure same [...] of the day. Referring Provider: TAYLOR PIERSON [[id number]] Allergies As of Date: 12/08/2024 Noted Allergy Reaction TAPE (ADHESIVE TAPE-SILICONES) 11/03/2019 2 - Rash Date Reviewed: 12/08/2024 Reviewed by: Dalila Harp LPN - Fully Assessed Reason for Visit: Consult [173] Cmt: Consult for Colon cancer screening. Visit Diagnosis:Screening for colon cancer [Z12.11] Order(s):CONSULT TO GENERAL SURGERY [9011] Order #: [id number]: 1 COLONOSCOPY DIAGNOSTIC [GI11] Order #: [id number] FUTURE peg 3350-Electrolytes (GOLYTELY) 236-22.74-6.74 -5.86 gram [...] Bilateral carotid bruits [R09.89] 07/22/2020 Atherosclerosis of chitina artery of extremity w*07/22/2020 Chest pain [R07.9] [...] am on dialysis? A: Please consult your tap dancer prior to scheduling to get instructions pertinent [...] 11:25 AM Status: COMPLETED Source: [facility] HNO ID: [id number] Author: TAYLOR PIERSON APRN.SWING SAW OPERATOR Service: ? Author Type: Nurse Practitioner Type: Progress Notes Filed: 12/02/2024 08:31 Note Text: CHIEF COMPLAINT: Sharon Mejia is a 74-year-old male with a history of HTN, DM, and pacemaker placement, presenting for follow-up. I reviewed past medical, surgical, social, and family histories today and updated chart. Allergies, chronic medications, and supplements were also reviewed. Recording using [employer] software for draft documentation of the visit was discussed with the patient/authorized retail field representative; all questions welcomed and answered. Patient/authorized retail field representative agreed to proceed Hypertension: - Recent [...] control 12/18/2019 Presence of cardiac pacemaker 10/26/2019 [employer] dual-chamber pacemaker 10/26/2019; indication: symptomatic bradycardia due to second-degree AV block; MRI conditional after 6 weeks post implant Second degree atrioventricular block 10/26/2019 Tobacco use disorder 08/31/2005 PAST SURGICAL HISTORY Procedure Laterality Date BASIC PACEMAKER DUAL CHAMBER Left 10/26/2019 [employer] dual-chamber pacemaker; indication: symptomatic bradycardia due [...] (A) 4.3 - 5.6 % Final Comment: Location:[facility], [address] [place] [address], [address] Point of care (POC) Hemoglobin A1c (HGBA1C) [...] specific diabetes management situations: The POC device guest experience representative provides a normal range of 4.2% to 6.5% for the HGBA1C POC test. However, the [place] Diabetes Association guidelines indicate that patients with [...] mg/dL. - Ordered urinalysis to recheck urine blojqjt-xf-sruysoyzpx ratio due to previous elevation. 3. Anemia, [...] dizziness, or edema. - Recent follow-up with geospatial image analyst Dr. Robles; pacemaker settings adjusted from 60 to 70 bpm. - Scheduled for echocardiogram and carotid artery ultrasound on the or . - Continue current anticoagulation therapy. 8. Hyperlipidemia, mixed (E78.2) - Recent lipid panel ordered by geospatial image analyst. 9. Screening for colon cancer (Z12.11) - [...] requirements were given to patient. Taylor Pierson APRN.SWING SAW OPERATOR CNOV Observed: 12/01/2024 11:20 AM Status: COMPLETED Source: [facility] Office Visit ([place]) SHARON MEJIA ([id number]) 1950 M Date Time Provider Department 12/01/24 11:20 AM TAYLOR PIERSON During your visit today, we recorded the following information about you: Temperature Pulse Respiration Blood pressure 97.8 degrees 70/minute 18/minute 122/74 Weight Height 71.2 kg 1.778 m Taylor Pierson APRN.SWING SAW OPERATOR 12/02/2024 8:31 AM Signed CHIEF COMPLAINT: Sharon Mejia is a 74-year-old male with a history of HTN, DM, and pacemaker placement, presenting for follow-up. I reviewed past medical, surgical, social, and family histories today and updated chart. Allergies, chronic medications, and supplements were also reviewed. Recording using [employer] software for draft documentation of the visit was discussed with the patient/authorized retail field representative; all questions welcomed and answered. Patient/authorized retail field representative agreed to proceed Hypertension: - Recent [...] control 12/18/2019 Presence of cardiac pacemaker 10/26/2019 [employer] dual-chamber pacemaker 10/26/2019; indication: symptomatic bradycardia due to second-degree AV block; MRI conditional after 6 weeks post implant Second degree atrioventricular block 10/26/2019 Tobacco use disorder 08/31/2005 PAST SURGICAL HISTORY Procedure Laterality Date BASIC PACEMAKER DUAL CHAMBER Left 10/26/2019 [employer] dual-chamber pacemaker; indication: symptomatic bradycardia due [...] (A) 4.3 - 5.6 % Final Comment: Location:[facility], [address] [place] [address], [address] Point of care (POC) Hemoglobin A1c (HGBA1C) [...] specific diabetes management situations: The POC device guest experience representative provides a normal range of 4.2% to 6.5% for the HGBA1C POC test. However, the [place] Diabetes Association guidelines indicate that patients with [...] mg/dL. - Ordered urinalysis to recheck urine iwmwdlq-ap-hgfzpkfgcf ratio due to previous elevation. 3. Anemia, [...] dizziness, or edema. - Recent follow-up with geospatial image analyst Dr. Robles; pacemaker settings adjusted from 60 to 70 bpm. - Scheduled for echocardiogram and carotid artery ultrasound on the or . - Continue current anticoagulation therapy. 8. Hyperlipidemia, mixed (E78.2) - Recent lipid panel ordered by geospatial image analyst. 9. Screening for colon cancer (Z12.11) - [...] Date Reviewed: 12/01/2024 Reviewed by: Taylor Pierson APRN.SWING SAW OPERATOR - Fully Assessed Reason for Visit: F/U [...] for prostate cancer [Z12.5] Order(s):HEMOGLOBIN A1C (POC) [5685927] Order #: [id number]. #:[id number] FERREX 150 150 mg iron capsuleTake 1 capsule by mouth once daily.Disp: 90 capsuleRfl: 3 ALBUMIN/CREATININE RATIO, URINE [SQUACR] Order #: [id number] FUTURE CONSULT TO GENERAL SURGERY [90] Order #: [id number]: 1 FUTURE PSA/PROSTATE SPECIFIC ANTIGEN SCREENING [SQPSAS1] Order #: [id number] FUTURE Prescriptions as of 12/02/2024 - FERREX [...] Bilateral carotid bruits [R09.89] 07/22/2020 Atherosclerosis of chitina artery of extremity w*07/22/2020 Chest pain [R07.9] [...] for Encounter Date Provider Department Center 12/01/2024 [id number] PIERSON AGFAMPLE [facility] Encounter Status:Closed by TAYLOR PIERSON on 12/02/24 CNOV Observed: 11/09/2024 9:40 AM Status: COMPLETED Source: [facility] Office Visit ([place]) SHARON MEJIA ([id number]) 1950 M Date Time Provider Department 11/09/24 9:40 AM JAKOB ROBLES During your visit today, we recorded the following information about you: Pulse Blood pressure Weight Height 70/minute 171/65 73 kg 1.778 m Jakob Robles MD 11/09/2024 12:16 PM Signed [facility] Cardiology ([address]) [address] [facility] [id number] OUTPATIENT VISIT DATE 11/04/2024 PRIMARY CARE PHYSICIAN: Taylor Pierson [address] [place] [address] CHIEF COMPLAINT: Establish new cardiology follow-up HISTORY OF PRESENT ILLNESS: Mr. Mejia is a 74 year old gentleman with history of coronary artery disease prior coronary bypass grafting, paroxysmal atrial fibrillation, pacemaker placement for symptomatic bradycardia, hypertension, dyslipidemia, and carotid artery disease who presents to establish new cardiology follow-up. Patient has not seen a geospatial image analyst in a few years. He does follow-up [...] control 12/18/2019 Presence of cardiac pacemaker 10/26/2019 [employer] dual-chamber pacemaker 10/26/2019; indication: symptomatic bradycardia due to second-degree AV block; MRI conditional after 6 weeks post implant Second degree atrioventricular block 10/26/2019 Tobacco use disorder 08/31/2005 PAST SURGICAL HISTORY Procedure Laterality Date BASIC PACEMAKER DUAL CHAMBER Left 10/26/2019 [employer] dual-chamber pacemaker; indication: symptomatic bradycardia due [...] suggestive of Atrial Tachycardia/Atrial flutter * AT [place]: 69% * Total number of episodes: 25, [...] AND RECOMMENDATIONS: 1. Coronary artery disease involving chitina coronary artery of chitina heart without angina pectoris - ICD9: 414.01, [...] CAD Primary Visit Diagnosis:Coronary artery disease involving chitina coronary artery of chitina heart without angina pectoris [I25.10] Other Visit Diagnoses:Paroxysmal atrial fibrillation (HCC) [I48.0] Essential hypertension, benign [I10] Hyperlipidemia, mixed [E78.2] Bilateral carotid bruits [R09.89] S/P CABG x 2 [Z95.1] Order(s):CONSULT TO CARDIOLOGY [9004] Order #: [id number]: 1 LIPID PANEL, FASTING [SQLIPB] Order #: [id number] FUTURE COMPREHENSIVE METABOLIC PANEL [SQCMP] Order #: [id number] FUTURE ECHO [484317] Order #: [id number]: 1 FUTURE US CAROTID ARTERIES [facility] [9441763] Order #: [id number] FUTURE Prescriptions as of 11/09/2024 - SITagliptin [...] Bilateral carotid bruits [R09.89] 07/22/2020 Atherosclerosis of chitina artery of extremity w*07/22/2020 Chest pain [R07.9] [...] for Encounter Date Provider Department Center 11/09/2024 [id number] ROBLES [facility] Encounter Status:Closed by JAKOB ROBLES on 11/09/24 PROGRESS Observed: 11/09/2024 9:40 AM Status: COMPLETED Source: [facility] ID: [id number] Author: JAKOB ROBLES MD Service: ? Author Type: Physician Type: Progress Notes Filed: 11/09/2024 12:16 Note Text: [facility] Cardiology ([facility]) [address] [facility] [address] OUTPATIENT VISIT DATE 11/04/2024 PRIMARY CARE PHYSICIAN: Taylor Pierson [address] [place] [id number] CHIEF COMPLAINT: Establish new cardiology follow-up HISTORY OF PRESENT ILLNESS: Mr. Mejia is a 74 year old gentleman with history of coronary artery disease prior coronary bypass grafting, paroxysmal atrial fibrillation, pacemaker placement for symptomatic bradycardia, hypertension, dyslipidemia, and carotid artery disease who presents to establish new cardiology follow-up. Patient has not seen a geospatial image analyst in a few years. He does follow-up [...] control 12/18/2019 Presence of cardiac pacemaker 10/26/2019 [employer] dual-chamber pacemaker 10/26/2019; indication: symptomatic bradycardia due to second-degree AV block; MRI conditional after 6 weeks post implant Second degree atrioventricular block 10/26/2019 Tobacco use disorder 08/31/2005 PAST SURGICAL HISTORY Procedure Laterality Date BASIC PACEMAKER DUAL CHAMBER Left 10/26/2019 [employer] dual-chamber pacemaker; indication: symptomatic bradycardia due [...] suggestive of Atrial Tachycardia/Atrial flutter * AT [place]: 69% * Total number of episodes: 25, [...] AND RECOMMENDATIONS: 1. Coronary artery disease involving chitina coronary artery of chitina heart without angina pectoris - ICD9: 414.01, [...] 12:00 AM Status: COMPLETED Source: [facility] Telephone (AGFAMPLE) SHARON MEJIA ([id number]) 1950 M Date Time Provider Department 07/28/24 TAYLOR PIERSON During your visit today, we recorded the following information about you: Sharan Houston MA 07/28/2024 9:28 AM Signed Form received from [place] [employer] Classifieds placed on signing tray YAMILETH Dc Julie, MA 07/28/2024 2:11 PM Signed Faxed Sharan Houston MA Allergies As of Date: 07/28/2024 Noted Allergy Reaction TAPE (ADHESIVE TAPE-SILICONES) 11/03/2019 2 - Rash Date Reviewed: 05/04/2024 Reviewed by: Taylor Pierson APRN.SWING SAW OPERATOR - Fully Assessed Reason for Visit: Electronic [...] Bilateral carotid bruits [R09.89] 07/22/2020 Atherosclerosis of chitina artery of extremity w*07/22/2020 Chest pain [R07.9] [...] 12:00 AM Status: COMPLETED Source: [facility] Telephone (Bread) SHARON MEJIA ([id number]) 1950 M Date Time Provider Department 07/03/24 TAYLOR PIERSON During your visit today, we recorded the following information about you: Sharan Houston MA 07/03/2024 4:22 PM Signed Form placed on signing tray YAMILETH Dc Brittny A, APRN.SWING SAW OPERATOR 07/07/2024 1:56 PM Signed Form completed and signed. Sharan Houston MA 07/07/2024 3:52 PM Signed Form faxed Sharan Houston MA Allergies As of Date: 07/03/2024 Noted Allergy Reaction TAPE (ADHESIVE TAPE-SILICONES) 11/03/2019 2 - Rash Date Reviewed: 05/04/2024 Reviewed by: Taylor Pierson APRN.SWING SAW OPERATOR - Fully Assessed Reason for Visit: Electronic [...] Bilateral carotid bruits [R09.89] 07/22/2020 Atherosclerosis of chitina artery of extremity w*07/22/2020 Chest pain [R07.9] [...] 12:00 AM Status: COMPLETED Source: [facility] Telephone (TuizziFAPlayblazerLE) SHARON MEJIA ([id number]) 1950 M Date Time Provider Department 05/11/24 TAYLOR PIERSON During your visit today, we recorded the following information about you: Chandrika Flores MA 05/11/2024 9:33 AM Signed ----- Message from Taylor Pierson APRN.SWING SAW OPERATOR sent at 05/07/2024 6:47 AM EST ----- [...] Date Reviewed: 05/04/2024 Reviewed by: Taylor Pierson APRN.SWING SAW OPERATOR - Fully Assessed Reason for Visit: Results [...] Bilateral carotid bruits [R09.89] 07/22/2020 Atherosclerosis of chitina artery of extremity w*07/22/2020 Chest pain [R07.9] [...] 11:52 AM Status: F Source: [facility] Order Comment: Specimen Type : URINE SPECIMEN Ordering Facility: [facility] Address: [address] [place] [address] TYPE CODE TESTS RESULT OUT OF RANGE REFERENCE UNITS LAB 2161-8(LOINC) Creat Ur-mCnc 139.7 46.8-314.5 m g/dL LAB 92315-4(LOINC ) Microalbumin ?Tm Ur-mRate 348.0 mg/L LAB [...] 3(1), 1-150. Performed By: #### UACR #### [facility] CLIA [id number] [address] [place] [address] [place] COMP METAB 2000 PNL SERPL Collected: 11:46 AM Status: F Source: [facility] Order Comment: Specimen Type : BLOOD SPECIMEN Ordering Facility: [facility] Address: [address] [place] [address] TYPE CODE TESTS RESULT OUT OF RANGE REFERENCE UNITS LAB 2885-2(LOINC) Prot SerPl-mCnc 6.6 6.3-8.0 g/dL LAB 1751-7(LOINC) Albumin SerPl-mCnc 4.2 3.9-4.9 g/dL LAB 28126-7(LOINC) Calcium SerPl-mCnc 9.4 8.5-10.2 mg/dL LAB 1975-2(LOINC) Bilirub SerPl-mCnc 0.4 0.2-1.3 mg/dL LAB 6768-6(LOINC) ALP SerPl-cCnc 89 38-113 U/L LAB 04608-4(LOINC) AST SerPl w P-5'-P-cCnc 18 14-40 U/L LAB 1743-4(LOINC) ALT SerPl w P-5'-P-cCnc 15 10-54 U/L LAB 2345-7(INC) Glucose SerPl-mCnc 145 High 74-99 mg/dL Result Comment: The [place] Diabetes Association (ADA) provides guidance for cutoff [...] Standards of Medical Care in Diabetes 2016, [place] Diabetes Association. Diabetes Care. 2016.39(Suppl 1). LAB 3094-0(LOINC) BUN SerPl-mCnc 24 9-24 mg/ dL LAB 2160-0(LOINC) Creat SerPl-mCnc 1.50 High 0.73-1.22 mg/dL LAB 2951-2(LOINC) Sodium SerPl-sCnc 140 136-144 mmol/L LAB 2823-3(LOINC) Potassium SerPl-sCnc 4.9 3.7-5.1 mmol/L LAB 2075-0(LOINC) Chloride SerPl-sCnc 105 98-107 mmol/L LAB 8-9(LOINC) CO2 SerPl-sCnc 28 22-30 mmo l/L LAB 81137-3(LOINC) Anion Gap SerPl-sCnc 7 Low 8-15 mmol/L LAB 27744-5(LOINC) Creatinine + eGFR Pnl SerPlBld 48 Low [...] accurately reflect actual GFR. Performed By: #### 26983-7, 62123-5 #### [facility] CLIA [id number] [address] [place], [place] [id number] [place] LIPID 1996 PNL SERPL Collected: 024 11:46 AM Status: F Source: [facility] Order Comment: Specimen Type : BLOOD SPECIMEN Ordering Facility: [facility] Address: [address] [place] [address] TYPE CODE TESTS RESULT OUT OF RANGE [...] risk factor for coronary heart disease LAB 88516-2(LOINC) NonHDLc SerPl-mCnc 120 <130 mg/dL Result Comment: <130 mg/dL, Optimal 130-159 mg/dL, Near optimal/above optimal 160-189 mg/dL, Borderline high 190-219 mg/dL, High >219 mg/dL, Very high Secondary prevention optimal non HDL Cholesterol levels are recommended to be <100 mg/dL LAB FT FASTING TIME 12 hrs LAB 69217-7(LOINC) VLDLc SerPl Calc-mCnc 14 <30 mg/dL LAB 9830-1(LOINC) Cholest/HDLc SerPl 2.69 <5.10 LAB 2089-1(LOINC) LDLc SerPl-mCnc 106 High <100 mg/dL Result Comment: <100 mg/dL, Optimal 100-129 mg/dL, Near optimal/above optimal 130-159 mg/dL, Borderline high 160-189 mg/dL, High >189 mg/dL, Very high Secondary prevention optimal LDL Cholesterol levels are recommended to be < 70 mg/dL LAB 22418-8(LOINC) LDLc/HDLc SerPl 1.49 <2.54 Result Comment: Reference: 1. National Cholesterol Education Program ATP III Guideline At-A-Glance Quick Desk Reference: National Heart, Lung, and Blood [place]. National Institutes of Health. 2001: NIH Publication No. 01-3305. 2. An International Atherosclerosis Society position paper: global recommendations for the management of dyslipidemia: executive summary, Atherosclerosis. 2014: 232(2):410-413. Performed By: #### 71917-1, 67749-4 #### [facility] CLIA [id number] [address] [place] [address] [place] [facility] CBC W AUTO DIFF BLD Collected: 05/05/2024 11:46 AM S tatus: F Source: [facility] Order Comment: Specimen Type : BLOOD SPECIMEN Ordering Facility: [facility] Address: [address] [place] [address] TYPE CODE TESTS RESULT OUT OF RANGE REFERENCE UNITS LAB 6690-2(INC) WBC # Bld Auto 6.68 3.70-11.00 k/uL LAB 789-8(LOINC) RBC # Bld Auto 4.40 4.20-6.00 m/ uL LAB 718-7(LOINC) Hgb Bld-mCnc 13.7 13.0-17.0 g/dL LAB 4544-3(LOINC) Hct VFr Bld Auto 42.0 39.0-51.0 % LAB 787-2(LOINC) MCV RBC Auto 95.5 80.0-100.0 fL LAB 785-6([facility]) MCH RBC Qn Auto 31.1 26.0-34.0 p g LAB 786-4([facility]) MCHC RBC Auto-mCnc 32.6 30.5-36.0 g/dL LAB 01382-4([facility]) RDW RBC-Rto 13.4 11.5-15.0 % LAB 777-3([facility]) Platelet # Bld Auto 199 150-400 k/uL LAB 30187-4([facility]) PMV Bld Auto 10.2 9.0-12.7 fL LAB 770-8([facility]) Neutrophils/leuk NFr Bld Auto 56.7 % LAB 751-8([facility]) Neutrophils # Bl d Auto 3.79 1.45-7.50 k/uL LAB 736-9([facility]) Lymphocytes/leuk NFr Bld Auto 23.7 % LAB 731-0([facility]) Lymphocytes # Bl d Auto 1.58 1.00-4.00 k/uL LAB 5905-5([facility]) Monocytes/leuk NFr Bld Auto 8.4 % LAB 742-7([facility]) Monocytes # Bld Auto 0.56 <0.87 k/uL LAB 713-8([facility]) Eosinophil/leuk NFr Bld Auto 10.5 % LAB 711-2([facility]) Eosinophil # Bld Auto 0.70 High <0.46 k/uL LAB 706-2([facility]) Basophils/leuk NFr Bld Auto 0.7 % LAB 704-7([facility]) Basophils # Bld Auto 0.05 <0.11 k/uL LAB 00654-1([facility]) Imm Granulocytes/leuk NFr Bld Auto 0.0 % LAB 30462-8([facility]) Imm Granulocytes # Bld Auto <0.03 <0.10 k/uL LAB 92228-7([facility]) nRBC/100 WBC Bld-Rto LAB 771-6([facility]) nRBC # Bld Auto LAB 98490-6([facility]) Differential method Bld Auto Performed By: #### 34007-3 # ### [facility] IA [id number] [address] [place] [address] [place] DEPRECATED HGB A1C BLD Collected: 05/05 11:46 AM Status: F Source: [facility] Order Comment: Specimen Type : BLOOD SPECIMEN Ordering Facility: [facility] Address: [address] [place] [address] TYPE CODE TESTS RESULT OUT OF RANGE REFERENCE UNITS LAB 4548-4(LOINC) HbA1c MFr Bld 6.5 High 4.3-5.6 % Result Comment: [place] Sydnee betes Association guidelines indicate that patients with HgbA1c in the range 5.7-6.4% are at increased risk for development of diabetes, and intervention by lifestyle modification may be beneficial. HgbA1c greater or equal to 6.5% is considered diagnostic of diabetes. LAB 59136-9(LOINC) Est. average glucose Bld gHb Est-mCnc 140 mg/dL Result Comment: eAG: (Estima rudy average glucose) is a calculated value from HgbA1c and is retail field representative of the average blood glucose level in the last 2-3 month period. Performed By: #### 90267-0 # ### [facility] CLIA [id number] [address] [place] [address] [place] PROGRESS Observed: 05/04/2024 1:41 PM Status: COMPLETED Source: [facility] HNO ID: [id number] Author: TAYLOR PIERSON APRN.SWING SAW OPERATOR Service: ? Author Type: Nurse Practitioner Type: [...] control 12/18/2019 Presence of cardiac pacemaker 10/26/2019 [employer] dual-chamber pacemaker 10/26/2019; indication: symptomatic bradycardia due to second-degree AV block; MRI conditional after 6 weeks post implant Second degree atrioventricular block 10/26/2019 Tobacco use disorder 08/31/2005 PAST SURGICAL HISTORY Procedure Laterality Date BASIC PACEMAKER DUAL CHAMBER Left 10/26/2019 [employer] dual-chamber pacemaker; indication: symptomatic bradycardia due [...] Head: Normocephalic. Nose: Nose normal. Mouth/Throat: Lips: [employer] [place]. Mouth: Mucous membranes are moist. Eyes: General: [...] 1:40 PM Status: COMPLETED Source: [facility] Office Visit ([place]) SHARON MEJIA ([id number]) 1950 M Date Time Provider Department 05/04/24 [...] control 12/18/2019 Presence of cardiac pacemaker 10/26/2019 [employer] dual-chamber pacemaker 10/26/2019; indication: symptomatic bradycardia due to second-degree AV block; MRI conditional after 6 weeks post implant Second degree atrioventricular block 10/26/2019 Tobacco use disorder 08/31/2005 PAST SURGICAL HISTORY Procedure Laterality Date BASIC PACEMAKER DUAL CHAMBER Left 10/26/2019 [employer] dual-chamber pacemaker; indication: symptomatic bradycardia due [...] Head: Normocephalic. Nose: Nose normal. Mouth/Throat: Lips: [employer]. Mouth: Mucous membranes are moist. Eyes: General: [...] Brittny A, APRN.CNP 05/04/2024 1:49 PM Signed [facility] Outpatient Lab Hours For your convenience, the [...] BLOOD COUNT AND DIFFERENTIAL [SQCBCDIF] Order #: [id number] FUTURE COMPREHENSIVE METABOLIC PANEL [SQCMP] Order #: [id number] FUTURE LIPID PANEL BASIC [SQLIPB] Order #: [id number] FUTURE HEMOGLOBIN A1C [ZJVGE0M] Order #: [id number] FUTURE ALBUMIN/CREATININE RATIO, URINE [SQUACR] Order #: [id number] FUTURE Prescriptions as of 05/04/2024 - SITagliptin [...] Bilateral carotid bruits [R09.89] 07/22/2020 Atherosclerosis of chitina artery of extremity w*07/22/2020 Chest pain [R07.9] [...] [Z45.018] 04/02/2023 Other instructions from your clinician: [facility] Outpatient Lab Hours For your convenience, the [...] for Encounter Date Provider Department Center 05/04/2024 [id number][facility]YLOR [facility] [address] Encounter Status:Closed by TAYLOR PIERSON on 05/04/24 PROGRESS Observed: 04/22/2024 8:51 AM Status: COMPLETED Source: [facility] HNO ID: [id number] Author: HEDY ROBLES MD Service: ? Author Type: Physician Type: Progress Notes Filed: 04/24/2024 12:49 Note Text: PRIMARY CARE PHYSICIAN: Taylor Pierson [address] [place] [address] Patient Care Team: Taylor Pierson APRN.CNP as PCP - General (Family Medicine) Hedy Robles MD as Specialty Product Lister (Cardiology) Bryant Lockwood MD as Specialty Product Lister (Nephrology) CHIEF COMPLAINT: Follow up for arrhythmia [...] control 12/18/2019 Presence of cardiac pacemaker 10/26/2019 [employer] dual-chamber pacemaker 10/26/2019; indication: symptomatic bradycardia due to second-degree AV block; MRI conditional after 6 weeks post implant Second degree atrioventricular block 10/26/2019 Tobacco use disorder 08/31/2005 PAST SURGICAL HISTORY Procedure Laterality Date BASIC PACEMAKER DUAL CHAMBER Left 10/26/2019 [employer] dual-chamber pacemaker; indication: symptomatic bradycardia due to second-degree AV block; MRI conditional after 6 weeks post implant[facility] CABG (2) VEIN GRAFTS AND [...] 527 ms Device Check: pacemaker evaluation by [facility] dated today 04/22/2024, encounter summary copied here: "PPM check, dual lead system with programming. ID x2 for routine PM evaluation. Offers no complaints. Left chest pocket without signs of infection. Presenting rhythm AFL/[employer] @ 70 ppm; RV pacing 99%. Interrogation [...] which included preparing to see the patient, [id number] patient care, completing clinical documentation, obtaining and/or [...] ICD10: Z79.01 7. 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 Mata of [facility], has not followed up with her in several years. He prefers a location closer to his home, such as [place] or [place]. I will send a referral for him [...] He will continue to follow up with [facility] under my supervision. 3) General cardiology or Interventional Cardiology follow up, either [place] (Dr. Nayak) or at [facility] office. Return in about 1 year (around 04/22/2025) for Dr. Robles, [facility] office with same day Device Clinic for [...] 8:40 AM Status: COMPLETED Source: [facility] Office Visit (AGCARDPOB) SHARON MEJIA ([id number]) 1950 M Date Time Provider Department 04/22/24 8:40 AM HEDY ROBLES AGCARDPOB During your visit today, we recorded the following information about you: Pulse Blood pressure Weight Height 65/minute 147/74 68.9 kg 1.778 m Meena Chauhan MA 04/22/2024 8:35 AM Signed Patient has no cardiac complaints today. Hedy Robles MD 04/24/2024 12:49 PM Signed PRIMARY CARE PHYSICIAN: Taylor Pierson [address] [place] [address] Patient Care Team: Taylor Pierson APRN.CNP as PCP - General (Family Medicine) Hedy Robles MD as Specialty Product Lister (Cardiology) Bryant Lockwood MD as Specialty Product Lister (Nephrology) CHIEF COMPLAINT: Follow up for arrhythmia [...] control 12/18/2019 Presence of cardiac pacemaker 10/26/2019 [employer] dual-chamber pacemaker 10/26/2019; indication: symptomatic bradycardia due to second-degree AV block; MRI conditional after 6 weeks post implant Second degree atrioventricular block 10/26/2019 Tobacco use disorder 08/31/2005 PAST SURGICAL HISTORY Procedure Laterality Date BASIC PACEMAKER DUAL CHAMBER Left 10/26/2019 [employer] dual-chamber pacemaker; indication: symptomatic bradycardia due [...] 527 ms Device Check: pacemaker evaluation by [facility] dated today 04/22/2024, encounter summary copied here: "PPM check, dual lead system with programming. ID x2 for routine PM evaluation. Offers no complaints. Left chest pocket without signs of infection. Presenting rhythm AFL/[employer] E[employer] WARFARE @ 70 ppm; RV pacing 99%. Interrogation [...] which included preparing to see the patient, [id number] patient care, completing clinical documentation, obtaining and/or [...] ICD10: Z79.01 7. 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 Mata of [facility], has not followed up with her in several years. He prefers a location closer to his home, such as [place] or [place]. I will send a referral for him [...] He will continue to follow up with [facility] under my supervision. 3) General cardiology or Interventional Cardiology follow up, either [place] (Dr. Nayak) or at [facility] office. Return in about 1 year (around 04/22/2025) for Dr. Robles, [facility] office with same day Device Clinic for pacemaker evaluation. 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 LOS History for Encounter Level of Service: OFFICE/OUTPATIENT ESTABLISHED MOD MDM 30 MIN[34637] Date AND Time: 04-22-2024 9:03 AM Recorded by User: HEDY ROBLES Follow-up and Disposition History for Encounter Date Provider Department Center 04/22/2024 6105-HEDY ROBLES Sanchez AGCARDPOB Ag Pob Letter Text Encounter Status:Closed by HEDY ROBLES on 04/24/24 PROGRESS Observed: 04/13/2024 11:24 AM Status: COMPLETED Source: [facility] HNO ID: [id number] Author: TAYLOR PIERSON APRN.CNP Service: ? Author Type: Nurse Practitioner Type: Progress Notes Filed: 04/13/2024 11:24 Note Text: Please notify the patient that I sent in a refill for him but he is due for an office visit. PROGRESS Observed: 04/13/2024 11:01 AM Status: COMPLETED Source: [facility] HNO ID: [id number] Author: HARVEY MANCIA RN Service: ? Author [...] Navigation Workflow Chart Review Payer: [facility] Navigation Signature: Harvey Mancia RN April 13, 2024 11:01 AM CNPTOUTREACH Observed: 04/13/2024 12:00 AM Status: COMPLETED Source: [facility] Patient Outreach (AGFAMPLE) SHARON MEJIA ([id number]) 1950 M Date Time Provider Department 04/13/24 [...] Navigation Workflow Chart Review Payer: [facility] Navigation Signature: Harvey Mancia RN April 13, [...] Date Reviewed: 08/19/2023 Reviewed by: Taylor Pierson APRN.SWING SAW OPERATOR - Fully Assessed Reason for Visit: Population Health Navigation Outreach [3910] Cmt: [facility] Attributed Member - Medication Adherence Visit Diagnosis:Type [...] Bilateral carotid bruits [R09.89] 07/22/2020 Atherosclerosis of chitina artery of extremity w*07/22/2020 Chest pain [R07.9] [...] NAME / CODE REACTION SEVERITY SOURCE 11/03/2019 DRUG/[id number](S NOMED CT) ADHESIVE TAPE-SILICONES RASH [facility] ENCOUNTERS ADMIT/DISCHARGE ACCOUNT NUMBER ADMITTING ENCOUNTER CLASS LOC ATION SOURCE 12/31/2024/ 5 [id number] Ambulatory [facility] Hospital[facility] ing:WOCA [facility] 12/31/2024/ 5 [id number] Ambulatory [facility] Hospital[facility] ing:WOVL [facility] 12/31/2024/ 5 [id number] Ambulatory [facility] HospitalBuild ing:WOL2 [facility] 12/08/2024/ 5 [id number] Ambulatory [place] [facility]:GENSLO [facility] 12/01/2024/ 5 [id number] Ambulatory [place] [facility] 11/09/2024/ 5 [id number] Ambulatory [facility] HospitalBuild ing:WOCA [facility] 07/23/2024/ 5 [id number] [facility]/05[facility]/ 4 [id number] Ambulatory [place] [facility] ing:LDLB [facility] 05/04/2024/ 4 [id number] Ambulatory [place] [facility] 04/22/2024/ 4 [id number] [facility] [place] [facility] 04/22/2024/ 4 [id number] [facility] [place] [facility] PAYERS ENCOUNTER GUARANTOR PAYER SUBSCRIBER SOURCE 12/31/2024 Primary Insuranc e:[facility] MEDICARE ADVANTAGE OPolicy Number: [id number] Date:1084-42-89Kgag Name:Meghan FRANCO: [id number], [place] [address] [facility] 12/31/2024 Primary Insuranc e:[facility] MEDICARE ADVANTAGE OPolicy Number: [id number] Date:7149-65-07Okfw Name:Meghan FRANCO: [id number], [place] [address] [facility] 12/31/2024 Primary Insuranc e:[facility] MEDICARE ADVANTAGE OPolicy Number: [id number] Date:1968-74-01Lnqq Name:Meghan FRANCO: [id number], [place] [address] [facility] 12/08/2024 Primary Insuranc e:[facility] MEDICARE ADVANTAGE HMOPolicy Number: [id number] Date:9567-75-66Glci Name:Meghan FRANCO: [id number], [place] [address] [facility] 12/01/2024 Primary Insuranc e:[facility] MEDICARE ADVANTAGE HMOPolicy Number: [id number] Date:8652-92-50Rsox Name:Meghan FRANCO: [id number], [place] [address] [facility] 11/09/2024 Primary Insuranc e:[facility] MEDICARE ADVANTAGE HMOPolicy Number: [id number] Date:3480-17-63Eymi Name:Meghan FRANCO: [id number], [place] [address] [facility] 07/23/2024 Primary Insuranc e:[facility] DUAL COMPLETE HMO POS SNPPolicy Number: [id number] Date:7338-63-71Yxja Name:Meghan FRANCO: [id number], [place] [address] [facility] 05/05/2024 Primary Insuranc e:[facility] MEDICARE PPOPolicy Number: [id number] Date:0390-19-79Yzgc Name:Meghan FRANCO: [id number], [place] [address] [facility] 05/04/2024 Primary Insuranc e:[facility] MEDICARE PPOPolicy Number: [id number] Date:6067-52-81Iaoy Name:Meghan FRANCO: [id number] [facility] [address] [address] [facility] 04/22/2024 Primary Insuranc e:[facility] MEDICARE PPOPolicy Number: [id number] Date:[id number] Name:Meghan FRANCO: [id number] COUNTS INCLUDE 234 [address]EDS [address] [facility] [address] [address] [facility] 04/22/2024 Primary Insuranc e:U[employer] AARP MEDICARE PPOPolicy Number: [id number] Date:[id number] Name:Meghan FRANCO: [id number] [address] [address] [facility]
[2025-03-07] VITALS (7 sets, daily range): BP systolic 83–119; BP diastolic 62–90; PULSE 118–131; RESP 15–18; TEMP 35.7–36.8; O2SAT 95–100; BMI 23.3; BMI 30.7
--- NOTE | 2025-03-07 09:08 | ED.VIS.CHEST ---
HPI History of Present Illness Chief Complaint: Palpitations Detail of Chief Complaint: Chest pain and tachycardia Informant: patient and family Narrative Narrative: Patient presents to the emergency department with complaint of chest discomfort that woke him up around 2 AM this morning. Checked his heart rate and it was elevated in the 130s but his pulse ox was normal. Patient states his chest pain is currently resolved. He has history of prior CABG and has a pacemaker for history of A-fib. He was seen in the emergency department 1 week ago for the same complaints and was sent home with heart rate of 119 at that time. He had his pacemaker interrogated at that time. Patient denies recent illness. Denies fevers or chills or sweats. Denies cough or shortness of breath. Patient on Eliquis and has been taking it normally. Patient states he took all his medications this morning [facility] Medical History (Updated 03/07/25 @ 10:[address] Zeeshan Wooten, ) A-fib Pacemaker Home Medications Medication Instructions Recorded Last Taken Type amlodipine 10 mg tablet 10 mg PO DAILY 03/01/25 03/07/25 History apixaban 5 mg tablet (Eliquis) 5 mg PO BID 03/01/25 03/07/25 History atorvastatin 80 mg tablet 80 mg PO DAILY 03/01/25 03/07/25 History carvedilol 6.25 mg tablet (Coreg) 6.25 mg PO BID 30 days #60 tabs 03/01/25 03/07/25 Rx folic acid 1 mg tablet 1 mg PO DAILY 03/01/25 03/07/25 History polysaccharide iron complex 150 mg 150 mg PO DAILY 03/01/25 03/07/25 History iron capsule (Ferrex) sitagliptin phosphate 50 mg tablet 50 mg PO DAILY 03/01/25 03/07/25 History (Januvia) ascorbic acid (vitamin C) 500 mg 500 mg PO DAILY 03/07/25 03/07/25 History tablet (C-500) cinnamon bark 500 mg capsule 500 mg PO DAILY 03/07/25 03/07/25 History (Cinnamon) Allergy/AdvReac Type Severity Reaction Status Date / Time No Known Allergies Allergy Verified 03/07/25 08:56 Social History Smoking Status: Never smoker ROS ROS ED Review of Systems ROS Unobtainable: other Constitutional Constitutional ED: Reports lethargy; Denies chills, fever(s), sweats or weight loss Eyes Eyes: Denies blurry vision, change in vision or diplopia ENT ENT ED: Denies rhinorrhea or sore throat Cardiovascular Cardiovascular: Reports chest pain and racing heartbeat; Denies orthopnea Respiratory/Chest Respiratory/Chest: Denies cough, dyspnea, dyspnea on exertion, orthopnea or sputum Gastrointestinal Gastrointestinal: Denies abdominal pain, diarrhea, nausea or vomiting Genitourinary Genitourinary ED: Denies dysuria, hematuria or urinary frequency Musculoskeletal Musculoskeletal: Denies arthralgias, back pain, myalgias or neck pain Integumentary Denies abscess, Abrasions or rash Neurologic Neurologic: Denies headache(s) or weakness Psychiatric Psychiatric: Denies anxiety, depression or suicidal thoughts Endocrine Endocrinology: Denies polydipsia, polyphagia or polyuria Hematologic/Lymphatic Hematologic/Lymphatic: Denies easy bleeding, easy bruising or lymphadenopathy Allergic/Immunologic Allergic/Immunologic ED: Denies mouth swelling, tongue swelling or urticaria EXAM Physical Exam Const Vital Signs: 03/07/25 08:55 03/07/25 09:09 03/07/25 09:09 Temperature 96.2 F L Temperature Source Oral Pulse Rate 131 H 131 H Respiratory Rate 16 16 Blood Pressure 83/62 L 101/90 H Blood Pressure Mean 69 93 Pulse Ox 98 100 Oxygen Delivery Method Room Air Room Air Room Air 03/07/25 10:00 Temperature Temperature Source Pulse Rate 129 H Respiratory Rate 18 Blood Pressure 115/77 Blood Pressure Mean 89 Pulse Ox 99 Oxygen Delivery Method Positive well nourished and well developed General Appearance ED: well developed and NAD HEENT Reports TM's clear and moist mucous membranes normocephalic and atraumatic; Negative for trauma or tenderness Tympanic Membrane ED: Yes TM's clear Eyes PERRL and EOMs intact bilaterally General Eye ED: Negative for pale conjunctiva or scleral icterus Neck no lymphadenopathy, supple and no JVD General: Negative for tenderness Chest Wall inspection of chest normal and palpation of chest normal Chest: Negative for tenderness Resp normal respiratory effort and clear to auscultation bilaterally Effort and Inspection: Negative for respiratory distress or pain with movement Auscultation: Negative for rhonchi, wheezes or diminished lung sounds Cardio regular rhythm, S1 normal heart sound, S2 normal heart sound and no murmurs; Negative for regular rate Rate: tachycardic Peripheral Pulses: pulses 2+ throughout GI normal to inspection, nondistended, normoactive bowel sounds, soft to palpation, non-tender, non-distended and no masses Back/Spine no CVA tenderness and no thoracic nor lumbar tenderness Extremity normal to inspection General Extremety ED: Negative for edema General Extremity: Negative for edema Neuro oriented x3, CN's II-XII intact bilaterally, no sensory deficits noted and gait normal Sensorium / Orientation: awake, alert, oriented to person, oriented to place and oriented to time Motor Exam: strength 5/5 throughout and strength abnormal Psych mental status grossly normal Skin no rashes or lesions noted and no wounds MDM MDM MDM Narrative Medical decision making narrative: Patient presents to the emergency department with chest pain and racing heart. Patient seen in the emergency department about a week ago for similar complaint and was discharged home with heart rate of 120. His carvedilol was increased at that time to 6.25 mg twice daily. He states that after several hours at home his heart rate returned back to the 60s where he normally is. This morning woke up with chest pain at 4 AM and racing heart. Chest pain currently resolved. EKG obtained on arrival showed a ventricularly paced rhythm with rate of 126 bpm. CBC with differential shows a white count of 8.3 with hemoglobin 12.2 and platelet count of 172. Chemistries unremarkable. BUN was 34 and creat 1.62. Troponin elevated 46. 1 view chest x-ray was unremarkable. Initially gave him Cardizem 20 mg IV bolus and really did not improve his heart rate. Discussed case with percussion instrument tuner on-call who recommended admission at this time to rule out ischemic process. May need echo and possibly heart cath to evaluate further. Dr. Cabezas will see patient in consultation. Will discuss with hospitalist to evaluate patient for admission. Lab Data Attestation: I reviewed the patient's lab results. Labs: Laboratory Results - last 24 hr 03/07/25 09:13 WBC 8.3 RBC 3.96 L Hgb 12.2 L Hct 36.4 L MCV 91.9 MCH 30.8 MCHC 33.5 RDW Std Deviation 46.5 H RDW Coeff of Megan 13.9 Plt Count 172 MPV 9.8 Immature Gran % (Auto) 0.400 Neut % (Auto) 76.7 H Lymph % (Auto) 15.5 L Emmons % (Auto) 4.6 Eos % (Auto) 2.1 Baso % (Auto) 0.7 Absolute Neuts (auto) 6.3 Absolute Lymphs (auto) 1.28 Nucleated RBC % 0 Sodium 136 Potassium 4.0 Chloride 102 Carbon Dioxide 19.8 L Anion Gap 15 BUN 34 H Creatinine 1.62 H Estim Creat Clear Calc 39.43 L Est GFR (MDRD) Non-Af 43 L BUN/Creatinine Ratio 21.0 H Glucose 177 H Calcium 8.8 Troponin T High Sens 46 H D Radiography Diagnostic Testing: Clinical Impression(s) from Imaging Studies Chest X-Ray 03/07/25 09:28 IMPRESSION: No acute cardiopulmonary process is identified radiographically. Reading Location: [id number] 1 view chest x-ray obtained interpreted by myself as no evidence of infiltrate or pneumothorax or acute disease process. Radiology in agreement. EKG Initial EKG: Comments: Ventricularly paced rhythm with a rate of 126 Discharge Plan Dx/Rx/DC Orders Clinical Impression: Chest pain, Tachycardia Disposition Disposition: Acute Care Hospital [facility]
--- NOTE | 2025-03-07 09:15 | EKG12_ITS ---
Test Reason : TACHY Blood Pressure : */* mmHG Vent. Rate : 126 BPM Atrial Rate : 131 BPM P-R Int : * ms QRS Dur : 186 ms QT Int : 418 ms P-R-T Axes : * -80 102 degrees QTcB Int : 605 ms Ventricular-paced rhythm Abnormal ECG Confirmed by YAEL NIETO, JON ([id number]), tape editor MARCIO SIMPSON ([id number]) on 03/09/2025 7:59:39 AM Referred By: ADOLPH/ELEUTERIO Confirmed By: JON CONLEY MD
[2025-03-07 09:19] LABS: Hematocrit 36.4 % (40-54); Hemoglobin 12.2 g/dL (13.0-16.5); Immature Granulocytes Count 0.030 X10^3/uL (0.0-0.0); Mean Corp Hgb Conc 33.5 g/dL (32-36); Mean Corpuscular Volume 91.9 fL (80-94); Mean Platelet Vol. 9.8 fl (6.2-12.0); NRBC Flagged by Analyzer 0 % (0-5); Platelet Count 172 K/mm3 (150-450); RBC Distribution Width CV 13.9 % (11.6-14.6); RBC Distribution Width SD 46.5 fl (35.1-43.9); Red Blood Count 3.96 M/mm3 (4.6-6.2); White Blood Count 8.3 K/mm3 (4.4-11.0)
--- NOTE | 2025-03-07 09:23 | ED.RN ---
PT TOOK 2 BABY KIM AT HOME. PT GIVEN 2 HERE
--- NOTE | 2025-03-07 09:28 | RAD_ITS ---
PROCEDURE: CHEST 1 VIEW (PORTABLE) 03/07/2025 REASON FOR EXAM: CHEST PAIN TECHNIQUE: Frontal view of the chest. COMPARISON: Chest x-ray dated 03/01/2025 FINDINGS: Hardware: Median sternotomy wires and vascular clips are present. Cardiac leads overlie the chest. Cardiac pacemaker device is identified in the left pectoral region with 2 intact leads in satisfactory position. Heart: Heart size and configuration are within normal limits. Mediastinum: Pulmonary vasculature and hilar structures are unremarkable. Arteriosclerotic vascular disease of the aorta is noted. Trachea is midline. Lungs: Lungs are expanded and clear without evidence of pneumothorax, atelectasis, consolidation, effusion or pneumonic infiltrate. Bones: No acute osseous abnormality is seen. Other: No acute soft tissue abnormality is seen. RAD/Chest 1 View (Portable) IMPRESSION: No acute cardiopulmonary process is identified radiographically. Reading Location: [id number]
[2025-03-07] MEDS: 0.9% Normal Saline (1000mL) 1,000 ML 150 ML IV (09:35)
[2025-03-07 09:40] LABS: Anion Gap 15 (5-15); BUN 34 mg/dL (4-19); BUN/Creat Ratio 21.0 RATIO (10-20); Calcium,Total 8.8 mg/dL (7.6-11.0); Carbon Dioxide 19.8 mmol/L (21.0-32.0); Chloride 102 mmol/L (98-108); Estimated Creatinine Clearance 39.43 ml/min (50-250); Glucose 177 mg/dL (70-99); Potassium 4.0 mmol/L (3.3-5.1); Troponin T High Sensitivity 46 ng/L (<=22)
--- NOTE | 2025-03-07 09:42 | CM.ED ---
Social Work Date of referral: 03/07/25 Reason for referral: Advanced Care Directives (ACD's) not on file. Referred by: Social Work identification Patient provided consent to social work visit. Patient stated he does not believe he has ACD's. Bindery Assistant provided education on how to obtain if interested which patient verbalized he understood. Lainey Smith, FUEL HANDLER, EDGE POLISHER
--- NOTE | 2025-03-07 11:27 | ECHOD_ITS ---
Reason For Study Reason For Study: ATRIAL FIBRILLATION Procedure This was a 2D Doppler, Color Flow transthoracic echocardiogram. Exam performed portable in patient room. Left Ventricle Normal LV size. Mild concentric left ventricular hypertrophy. The left ventricular ejection fraction is 35 %. Mild to moderate segmental systolic dysfunction (see wall motion). There are regional wall motion abnormalities as specified. Mid-Inferior: Hypokinetic. Infero-Basal: Akinetic. Posterior-Basal: Akinetic. The rest of the wall segments are normal. Right Ventricle Normal RV size. ICD or pacer leads identified within the right ventricle. The right ventricle is normal in size, function, and thickness. Atria Normal left atrium. Normal right atrium. Mitral Valve Normal mitral valve. Mild (1+) eccentric mitral valve insufficiency. Tricuspid Valve Normal tricuspid valve. Aortic Valve Trisinus/trileaflet aortic valve. Mild focal aortic valve calcification. Pulmonic Valve Normal pulmonic valve. Great Vessels Normal aortic root. The pulmonary artery is normal size. Inferior vena cava collapse with respiration. Pericardium/Pleural No pericardial effusion. MMode/2D Measurements & Calculations LVIDd: 4.6 cm IVSd: 1.2 cm LVOT diam: 1.9 cm LVIDs: 3.9 cm LVPWd: 1.2 cm LVOT area: 2.8 cm2 RVDd: 3.6 cm FS: 16.2 % asc Aorta Diam: 2.9 cm LAV(MOD-bp): 43.0 ml LVAd ap4: 22.8 cm2 LAV(MOD-bp) Indexed: 22.5 ml/m2 LVLd ap4: 7.7 cm LAV(MOD-sp2): 47.4 ml EDV(MOD-sp4): 55.6 ml LAV(MOD-sp4): 38.2 ml EDV(sp4-el): 57.6 ml LVAs ap4: 19.4 cm2 LVLs ap4: 7.8 cm ESV(MOD-sp4): 40.3 ml ESV(sp4-el): 41.0 ml EF(MOD-sp4): 27.5 % EF(sp4-el): 28.8 % LVAd ap2: 20.5 cm2 SV(MOD-sp4): 15.3 ml SV(MOD-sp2): 9.7 ml LVLd ap2: 7.9 cm SI(MOD-sp4): 8.0 ml/m2 SI(MOD-sp2): 5.1 ml/m2 EDV(MOD-sp2): 44.6 ml EDV(sp2-el): 45.2 ml LVAs ap2: 17.8 cm2 LVLs ap2: 7.9 cm ESV(MOD-sp2): 34.9 ml ESV(sp2-el): 34.0 ml EF(MOD-sp2): 21.9 % SV(sp4-el): 16.6 ml Ao sinus diam: 3.[address] Junction: 2.3 cm LA dimension(2D): 4.0 cm LA A4 area: 15.2 cm2 RA A4 area: 16.7 cm2 TAPSE: 1.7 cm Time Measurements MV dec time: 0.14 sec Doppler Measurements & Calculations MV E max eda: 110.7 cm/sec Ao V2 max: 111.2 cm/sec LV V1 max: 79.8 cm/sec Ao max P.0 mmHg LV V1 max P.5 mmHg Ao V2 mean: 86.3 cm/sec LV V1 mean P.6 mmHg Ao mean P.2 mmHg LV V1 mean: 61.2 cm/sec Ao V2 VTI: 20.8 cm LV V1 VTI: 12.8 cm AV (velocity ratio): 0.61 MONI(I,D): 1.7 cm2 MONI(V,D): 2.0 cm2 SV(LVOT): 36.1 ml PA V2 max: 77.7 cm/sec ECHO/Echo Complete Interpretation Summary Normal LV size. The left ventricular ejection fraction is 35 %. Mild concentric left ventricular hypertrophy. Mild to moderate segmental systolic dysfunction (see wall motion). Ordering Physician: Duglas Salazar Performed By: Eli Chery RDCS
[2025-03-07 11:38] LABS: Troponin T High Sens 2 HR 53 ng/L (<=22)
--- NOTE | 2025-03-07 12:45 | PCM.HP.STD ---
[facility] - General General Date of Admission: 03/07/25 HPI Narrative SHARON MEJIA, is a 75 M who presents to the hospital with palpitations. He was recently seen about a week ago with palpitations and had increased to his Coreg and discharged home. He was stable for about a week before feeling palpitations and some mild chest pain today. Troponins are slightly elevated but insignificant and do not demonstrate any ischemia on EKG. He presents today with recurrent tachycardia though does appear atrial and he does have a pacemaker in place that is atrially sensed and ventricularly paced that does not demonstrate any A-fib or flutter. In the ER he was started on some IV fluids and chest x-ray was unremarkable with no signs of infection. [facility] Medical History (Updated 03/07/25 @ 15:[address] Zheng Beverly MD) Solitary kidney A-fib Pacemaker Home Medications Medication Instructions Recorded Last Taken Type amlodipine 10 mg tablet 10 mg PO DAILY 03/01/25 03/07/25 History apixaban 5 mg tablet (Eliquis) 5 mg PO BID 03/01/25 03/07/25 History atorvastatin 80 mg tablet 80 mg PO DAILY 03/01/25 03/07/25 History carvedilol 6.25 mg tablet (Coreg) 6.25 mg PO BID 30 days #60 tabs 03/01/25 03/07/25 Rx folic acid 1 mg tablet 1 mg PO DAILY 03/01/25 03/07/25 History polysaccharide iron complex 150 mg 150 mg PO DAILY 03/01/25 03/07/25 History iron capsule (Ferrex) sitagliptin phosphate 50 mg tablet 50 mg PO DAILY 03/01/25 03/07/25 History (Januvia) ascorbic acid (vitamin C) 500 mg 500 mg PO DAILY 03/07/25 03/07/25 History tablet (C-500) cinnamon bark 500 mg capsule 500 mg PO DAILY 03/07/25 03/07/25 History (Cinnamon) Allergy/AdvReac Type Severity Reaction Status Date / Time No Known Allergies Allergy Verified 03/07/25 08:56 Family History (Updated 03/07/25 @ 15:[address] Duglas Salazar MD) Other Heart disease Surgical History (Updated 03/07/25 @ 15:[address] Duglas Salazar MD) History of coronary artery bypass graft History of permanent cardiac pacemaker placement Social History Smoking Status: Former smoker ROS Constitutional Constitutional: Denies chills, fatigue, fever(s) or malaise Eyes Eyes: Denies blurry vision ENT HEENT: Denies headache(s) or nasal discharge Cardiovascular Cardiovascular: Reports chest pain and palpitations; Denies dyspnea on exertion or syncope Respiratory/Chest Respiratory/Chest: Denies cough, shortness of breath at rest or shortness of breath with exertion Gastrointestinal Gastrointestinal: Denies constipation, diarrhea, nausea or vomiting Genitourinary Genitourinary: Denies dysuria Neurologic Neurologic: Denies focal weakness, numbness or tremor(s) Psychiatric Psychiatric: Denies anxiety or depression Vital Signs Vital Signs Vital Signs: 03/07/25 08:55 03/07/25 09:09 03/07/25 09:09 Temperature 96.2 F L Temperature Source Oral Pulse Rate 131 H 131 H Respiratory Rate 16 16 Blood Pressure 83/62 L 101/90 H Blood Pressure Mean 69 93 Blood Pressure Source Blood Pressure Position Blood Pressure Location Pulse Ox 98 100 Oxygen Delivery Method Room Air Room Air Room Air 03/07/25 10:00 03/07/25 11:00 03/07/25 11:00 Temperature 97.6 F L Temperature Source Pulse Rate 129 H 128 H 128 H Respiratory Rate 18 18 18 Blood Pressure 115/77 119/79 119/79 Blood Pressure Mean 89 92 92 Blood Pressure Source Blood Pressure Position Blood Pressure Location Pulse Ox 99 97 97 Oxygen Delivery Method Room Air 03/07/25 11:45 Temperature 98.1 F Temperature Source Temporal Pulse Rate 118 H Respiratory Rate 18 Blood Pressure 102/82 H Blood Pressure Mean 88 Blood Pressure Source Monitor Blood Pressure Position Semi-Fowlers Blood Pressure Location Right Arm Pulse Ox 95 Oxygen Delivery Method Room Air Weight Weight: 162 lb 14.746 oz Body Mass Index (BMI) 30.7 Physical Exam Narrative General: Alert, Oriented x3, Cooperative, No apparent distress HEENT: Atraumatic, PERRLA, EOMI, Normocephalic Oral: Moist Mucosa Neck: Supple, No JVD Lungs: Diminished, Normal air movement, No rhonchi, No wheeze, No rales Cardiovascular: Tachycardic, Regular Rhythm, Normal S1, Normal S2, No murmurs Abdomen: Soft, Non Tender, Non-Distended, No Hepato-splenomegaly Extremities: No edema, Capillary Refill Less than 3 Seconds Skin: No rashes, No breakdown Musculoskeletal: No Tenderness to Palpation of Joints or Extremities Neurological: No focal neurological deficits, moves all extremities Psych/Mental Status: Normal Affect, Appropriate Results Lab / Micro Data 03/07/25 09:13 03/07/25 09:13 Labs: Laboratory Results - last 24 hr 03/07/25 09:13: WBC 8.3, RBC 3.96 L, Hgb 12.2 L, Hct 36.4 L, MCV 91.9, MCH 30.8, MCHC 33.5, RDW Std Deviation 46.5 H, RDW Coeff of Megan 13.9, Plt Count 172, MPV 9.8, Immature Gran % (Auto) 0.400, Neut % (Auto) 76.7 H, Lymph % (Auto) 15.5 L, [place] % (Auto) 4.6, Eos % (Auto) 2.1, Baso % (Auto) 0.7, Absolute Neuts (auto) 6.3, Absolute Lymphs (auto) 1.28, Nucleated RBC % 0, Sodium 136, Potassium 4.0, Chloride 102, Carbon Dioxide 19.8 L, Anion Gap 15, BUN 34 H, Creatinine 1.62 H, Estim Creat Clear Calc 39.43 L, Est GFR (MDRD) Non-Af 43 L, BUN/Creatinine Ratio 21.0 H, Glucose 177 H, Calcium 8.8, Troponin T High Sens 46 H D 03/07/25 11:14: Troponin T Hi Sens 2 Hr 53 H Imaging Radiology Impression Chest X-Ray 03/07/25 09:28 IMPRESSION: No acute cardiopulmonary process is identified radiographically. Reading Location: [id number] Assessment & Plan Assessment/Plan (1) Atrial tachycardia: (2) Chest pain: PLAN: Plan 1. History of paroxysmal A-fib with atrial tachycardia and chest pain/essential HTN/HLD – Will consult cardiology – Continue with Eliquis – Plan for echocardiogram as most of his cardiac workup is done at the [facility] – Continue with Lipitor – His blood pressure is little bit on the low side due to his tachycardia, will hold his Norvasc – Will need to increase his beta-blockade 2. Iron deficiency anemia – Stable – Continue with his iron supplementation, hemoglobin is 12.2 DVT: Herbert 75 minutes was spent on direct patient care, including documentation as well as chart review and collaboration with colleagues Charges/Coding Visit Charges Inpatient E&M: 12794 Init Hosp L3
[2025-03-07 13:26] LABS: Troponin T High Sens 4 HR 70 ng/L (<=22)
[2025-03-07 14:11] LABS: Magnesium 2.2 mg/dL (1.5-2.2)
--- NOTE | 2025-03-07 14:21 | PCM.CONS.C ---
Assessment & Plan Assessment/Plan (1) Atrial fibrillation with RVR: (2) CAD (coronary artery disease) of artery bypass graft: PLAN: Cardiac care plan, recommendations; 75-year-old patient seen and evaluated in progressive care unit/PCU Daughter at bedside at time of evaluation as well as nursing staff Patient recently seen in the ED and discharged have A-fib with RVR with a permanent pacemaker Increase the dose of carvedilol Presented back complaining of symptoms of chest pain which resolved And has EKG showing paced ventricular rhythm with underlying atrial fibrillation Patient has known history of CAD with CABG in 2020 at [facility] No history of paroxysmal A-fib with a permanent pacemaker/[employer] recently interrogated which showed normal function permanent pacemaker On this admission noted had A-fib with RVR. Patient has CKD and regularly seen nephrology she had absent left kidney With elevated creatinine to 1.69 Other medical problem include history of diabetes mellitus Hyperlipidemia Hypertension. Recently also noted he has CHF with a recent echocardiogram at his civil lawyer in [place] In December 2023 ejection fraction (44% and he has a BNP of 2182. Recommendations; 1. I reviewed and discussed all his current medication Will hold the Eliquis and will start on heparin, with the plan of evaluating with Lexiscan sestamibi An echocardiogram He has elevated high sensitive troponins with a troponin up to 70. And his symptoms of chest pain resolved. He is high risk for cardiac catheterization due to risk of contrast-induced nephropathy and risk of dialysis I requested nephrology consultation. Will get the bypass report from [place] Will continue the rest of the medication for diabetes hyperlipidemia. He still had A-fib with RVR and a paced ventricular rhythm I increased the dose of beta-steffen to carvedilol 12.5 mg twice daily. And discontinued the amlodipine And added Cardizem 30 mg every 6 hours. Cardiology team here at [facility] will continue to monitor and follow-up clinically. Marina Aguirre MD,[facility] technical administrative assistant HPI Consult Data Date of Consult: 03/07/25 HPI Narrative Reason for Consultation: CAD s/p CABF, A-fib/PPM HPI Narrative: SHARON MEJIA, is a 75 M who presents [facility] Medical History (Updated 03/07/25 @ 14:[address] Marina Aguirre MD) A-fib Pacemaker Home Medications Medication Instructions Recorded Last Taken Type amlodipine 10 mg tablet 10 mg PO DAILY 03/01/25 03/07/25 History apixaban 5 mg tablet (Eliquis) 5 mg PO BID 03/01/25 03/07/25 History atorvastatin 80 mg tablet 80 mg PO DAILY 03/01/25 03/07/25 History carvedilol 6.25 mg tablet (Coreg) 6.25 mg PO BID 30 days #60 tabs 03/01/25 03/07/25 Rx folic acid 1 mg tablet 1 mg PO DAILY 03/01/25 03/07/25 History polysaccharide iron complex 150 mg 150 mg PO DAILY 03/01/25 03/07/25 History iron capsule (Ferrex) sitagliptin phosphate 50 mg tablet 50 mg PO DAILY 03/01/25 03/07/25 History (Januvia) ascorbic acid (vitamin C) 500 mg 500 mg PO DAILY 03/07/25 03/07/25 History tablet (C-500) cinnamon bark 500 mg capsule 500 mg PO DAILY 03/07/25 03/07/25 History (Cinnamon) Allergy/AdvReac Type Severity Reaction Status Date / Time No Known Allergies Allergy Verified 03/07/25 08:56 Social History Smoking Status: Former smoker Physical Exam Cardio Cardio Narrative: Cardiac rhythm with paced ventricular rhythm Cardiac exam S1-S2 with a regular Chest exam clear auscultation bilateral Examination lower extremity no lower extremity edema. Objective Data Vital Signs: Vital Signs Temp Pulse Resp BP Pulse Ox O2 Del Method 98.1 F 118 H 18 102/82 H 95 Room Air 03/07/25 11:45 03/07/25 11:45 03/07/25 11:45 03/07/25 11:45 03/07/25 11:45 03/07/25 11:45 Oxygen Delivery Method Room Air Weight: 162 lb 14.746 oz Body Mass Index (BMI) 30.7 Intake & Output: Intake and Output for Last 24 Hours 03/05/25 03/06/25 03/07/25 23:59 23:59 23:59 Intake Total 357.5 / 357.5 Balance 357.5 / 357.5 Lab / Micro Data 03/07/25 09:13 03/07/25 09:13 Labs: Laboratory Results - last 24 hr 03/07/25 09:13: WBC 8.3, RBC 3.96 L, Hgb 12.2 L, Hct 36.4 L, MCV 91.9, MCH 30.8, MCHC 33.5, RDW Std Deviation 46.5 H, RDW Coeff of Megan 13.9, Plt Count 172, MPV 9.8, Immature Gran % (Auto) 0.400, Neut % (Auto) 76.7 H, Lymph % (Auto) 15.5 L, Dane % (Auto) 4.6, Eos % (Auto) 2.1, Baso % (Auto) 0.7, Absolute Neuts (auto) 6.3, Absolute Lymphs (auto) 1.28, Nucleated RBC % 0, Sodium 136, Potassium 4.0, Chloride 102, Carbon Dioxide 19.8 L, Anion Gap 15, BUN 34 H, Creatinine 1.62 H, Estim Creat Clear Calc 39.43 L, Est GFR (MDRD) Non-Af 43 L, BUN/Creatinine Ratio 21.0 H, Glucose 177 H, Calcium 8.8, Troponin T High Sens 46 H D 03/07/25 11:14: Troponin T Hi Sens 2 Hr 53 H 03/07/25 13:00: Magnesium 2.2, Troponin T Hi Sens 4Hr 70 H* Cardiology Labs/Tests 03/07/25 09:13: WBC 8.3, RBC 3.96 L, Hgb 12.2 L, Hct 36.4 L, MCV 91.9, MCH 30.8, MCHC 33.5, Plt Count 172, MPV 9.8, Immature Gran % (Auto) 0.400, Neut % (Auto) 76.7 H, Lymph % (Auto) 15.5 L, Dane % (Auto) 4.6, Eos % (Auto) 2.1, Baso % (Auto) 0.7, Absolute Neuts (auto) 6.3, Nucleated RBC % 0, Sodium 136, Potassium 4.0, Chloride 102, Carbon Dioxide 19.8 L, Anion Gap 15, BUN 34 H, Creatinine 1.62 H, Est GFR (MDRD) Non-Af 43 L, BUN/Creatinine Ratio 21.0 H, Glucose 177 H, Calcium 8.8 03/07/25 13:00: Magnesium 2.2 Rhythm: EKG: ECHO: Stress Test: Cardiac Cath: PCI: CT Surgery: Holter monitor: EPS: PPM: CXR: Chest CT Scan: Radiography Diagnostic Testing: Radiology Impression Chest X-Ray 03/07/25 09:28 IMPRESSION: No acute cardiopulmonary process is identified radiographically. Reading Location: [id number] Risk Score for UA/STEMI Assesmment (YES = 1) Risk Stratification Applicable: No
[2025-03-07 15:06] LABS: Prothrombin Time (Protime)PT. 16.6 SECONDS (11.7-14.9)
[2025-03-07 15:07] LABS: Partial Thromboplast Time 34.1 Seconds (24.1-36.2)
--- NOTE | 2025-03-07 15:19 | PCM.CONS.R ---
Assessment & Plan Assessment/Plan (1) THANH (acute kidney injury): (2) CKD (chronic kidney disease) stage 3, GFR 30-59 ml/min: PLAN: Plan THANH on CKD in setting of solitary kidney, likely congenital -baseline scr ~1.4mg/dL -acute insult secondary to hemodynamics in setting of afib/rvr -scr currently at 1.7mg/dL -agree with ivf -bmp in am -check urine sodium, urine p/c ratio -regarding LHC, JAIME risk ~25%, 1% chance of needing [employer] -patient going for stress test tomorrow, will continue to optimize hemodynamics prior to LHC. discuss with patient and his family at bedside HPI Consult Data Date of Consult: 03/07/25 HPI Narrative Reason for Consultation: thanh/ckd HPI Narrative: SHARON MEJIA, is a 75 M who presents to ED due to afib rvr, chest discomfort. Patient seen cardiology with plan for possible heart cath. Nephrology consulted due to thanh in setting of CKD with possible need for LHC. patient known to have solitary kidney, self cath 3x daily currently feels better on IVF no NSAIDs PFSH Medical History (Updated 03/07/25 @ 15:[address] Zheng Beverly MD) Solitary kidney A-fib Pacemaker Home Medications Medication Instructions Recorded Last Taken Type amlodipine 10 mg tablet 10 mg PO DAILY 03/01/25 03/07/25 History apixaban 5 mg tablet (Eliquis) 5 mg PO BID 03/01/25 03/07/25 History atorvastatin 80 mg tablet 80 mg PO DAILY 03/01/25 03/07/25 History carvedilol 6.25 mg tablet (Coreg) 6.25 mg PO BID 30 days #60 tabs 03/01/25 03/07/25 Rx folic acid 1 mg tablet 1 mg PO DAILY 03/01/25 03/07/25 History polysaccharide iron complex 150 mg 150 mg PO DAILY 03/01/25 03/07/25 History iron capsule (Ferrex) sitagliptin phosphate 50 mg tablet 50 mg PO DAILY 03/01/25 03/07/25 History (Januvia) ascorbic acid (vitamin C) 500 mg 500 mg PO DAILY 03/07/25 03/07/25 History tablet (C-500) cinnamon bark 500 mg capsule 500 mg PO DAILY 03/07/25 03/07/25 History (Cinnamon) Allergy/AdvReac Type Severity Reaction Status Date / Time No Known Allergies Allergy Verified 03/07/25 08:56 Social History Smoking Status: Former smoker Physical Exam Narrative alert, responsive, no acute distress irregular b/s equal abdomen non tender no peripheral edema Medical Records Data Attestation: I reviewed the patient's medical records Lab / Micro Data Attestation: I reviewed the patient's lab results. 03/07/25 09:13 03/07/25 09:13 Labs: Laboratory Results - last 24 hr 03/07/25 09:13: WBC 8.3, RBC 3.96 L, Hgb 12.2 L, Hct 36.4 L, MCV 91.9, MCH 30.8, MCHC 33.5, RDW Std Deviation 46.5 H, RDW Coeff of Megan 13.9, Plt Count 172, MPV 9.8, Immature Gran % (Auto) 0.400, Neut % (Auto) 76.7 H, Lymph % (Auto) 15.5 L, [place] % (Auto) 4.6, Eos % (Auto) 2.1, Baso % (Auto) 0.7, Absolute Neuts (auto) 6.3, Absolute Lymphs (auto) 1.28, Nucleated RBC % 0, Sodium 136, Potassium 4.0, Chloride 102, Carbon Dioxide 19.8 L, Anion Gap 15, BUN 34 H, Creatinine 1.62 H, Estim Creat Clear Calc 39.43 L, Est GFR (MDRD) Non-Af 43 L, BUN/Creatinine Ratio 21.0 H, Glucose 177 H, Calcium 8.8, Troponin T High Sens 46 H D 03/07/25 11:14: Troponin T Hi Sens 2 Hr 53 H 03/07/25 13:00: Magnesium 2.2, Troponin T Hi Sens 4Hr 70 H* 03/07/25 14:47: PT 16.6 H, INR 1.3, APTT 34.1 Imaging Radiology Impression Chest X-Ray 03/07/25 09:28 IMPRESSION: No acute cardiopulmonary process is identified radiographically. Reading Location: [id number]
[2025-03-07] MEDS: 0.9% Normal Saline (1000mL) 1,000 ML 75 ML IV (16:37)
[2025-03-07 17:21] LABS: Creatinine, Urine (random) 48.50 mg/dL (39.00-259.00); Protein, Urine (Random) 26.4 mg/dL (0.0-12.0); Protein:Creat Ratio 544 mg/g CRE (0-200)
[2025-03-07] MEDS: HEPARIN/D5w 25,000 UNITS 25,000 UNITS/250 ML IV.SOLN. 11.1 UNITS CONT INF (17:24)
[2025-03-07 23:58] LABS: Partial Thromboplast Time 89.5 Seconds (24.1-36.2)
[2025-03-08] VITALS (22 sets, daily range): BP systolic 106–145; BP diastolic 53–94; PULSE 60–124; RESP 11–22; TEMP 35.6–36.6; O2SAT 91–99
[2025-03-08] MEDS: Diltiazem 125 MG in Dextrose 5%-Water (100mL Bag) 100 ML IV (01:45)
[2025-03-08] MEDS: 0.9% Normal Saline (1000mL) 1,000 ML 75 ML IV (05:10)
[2025-03-08 06:26] LABS: Hematocrit 32.6 % (40-54); Hemoglobin 11.0 g/dL (13.0-16.5); Immature Granulocytes Count 0.040 X10^3/uL (0.0-0.0); Mean Corp Hgb Conc 33.7 g/dL (32-36); Mean Corpuscular Volume 89.6 fL (80-94); Mean Platelet Vol. 9.7 fl (6.2-12.0); NRBC Flagged by Analyzer 0 % (0-5); Platelet Count 174 K/mm3 (150-450); RBC Distribution Width CV 14.3 % (11.6-14.6); RBC Distribution Width SD 46.3 fl (35.1-43.9); Red Blood Count 3.64 M/mm3 (4.6-6.2); White Blood Count 8.9 K/mm3 (4.4-11.0)
[2025-03-08 06:49] LABS: Partial Thromboplast Time 146.2 Seconds (24.1-36.2)
[2025-03-08 06:51] LABS: Troponin T High Sensitivity 321 ng/L (<=22)
[2025-03-08 06:53] LABS: Anion Gap 12 (5-15); BUN 30 mg/dL (4-19); BUN/Creat Ratio 19.0 RATIO (10-20); Calcium,Total 8.2 mg/dL (7.6-11.0); Carbon Dioxide 18.4 mmol/L (21.0-32.0); Chloride 109 mmol/L (98-108); Estimated Creatinine Clearance 33.96 ml/min (50-250); Glucose 168 mg/dL (70-99); Potassium 4.1 mmol/L (3.3-5.1)
--- NOTE | 2025-03-08 07:16 | EKG12_ITS ---
Test Reason : POST DCCV Blood Pressure : */* mmHG Vent. Rate : 60 BPM Atrial Rate : 60 BPM P-R Int : 198 ms QRS Dur : 196 ms QT Int : 514 ms P-R-T Axes : * -79 110 degrees QTcB Int : 514 ms AV dual-paced rhythm Abnormal ECG When compared with ECG of 08-Mar-2025 07:25, MANUAL COMPARISON REQUIRED DATA IS UNCONFIRMED Confirmed by YAEL NIETO, JON ([id number]), tape editor MARCIO SIMPSON ([id number]) on 03/09/2025 1:03:51 PM Referred By: YAEL Confirmed By: JON CONLEY MD
--- NOTE | 2025-03-08 07:20 | PCM.PN.CARD ---
Subjective Subjective Patient seen and evaluated. Still in atrial fibrillation. Objective Data Vital Signs: Vital Signs Temp Pulse Resp BP Pulse Ox O2 Del Method O2 Flow Rate 98 F 113 H 15 130/53 H 95 Room Air 2 03/08/25 04:00 03/08/25 06:00 03/08/25 06:00 03/08/25 06:00 03/08/25 06:00 03/08/25 06:00 03/08/25 05:00 Oxygen Flow Rate (L/min) 2 Oxygen Delivery Method Room Air Weight: 162 lb 14.746 oz Body Mass Index (BMI) 30.7 Intake & Output: Intake and Output for Last 24 Hours 03/06/25 03/07/25 03/08/25 23:59 23:59 23:59 Intake Total 867.5 / 867.5 1123.35 / 1123.35 Output Total 725 / 725 Balance 142.5 / 142.5 1123.35 / 1123.35 Lab / Micro Data 03/08/25 06:08 03/08/25 06:08 Labs: Laboratory Results - last 24 hr 03/07/25 09:13: WBC 8.3, RBC 3.96 L, Hgb 12.2 L, Hct 36.4 L, MCV 91.9, MCH 30.8, MCHC 33.5, RDW Std Deviation 46.5 H, RDW Coeff of Megan 13.9, Plt Count 172, MPV 9.8, Immature Gran % (Auto) 0.400, Neut % (Auto) 76.7 H, Lymph % (Auto) 15.5 L, [place] % (Auto) 4.6, Eos % (Auto) 2.1, Baso % (Auto) 0.7, Absolute Neuts (auto) 6.3, Absolute Lymphs (auto) 1.28, Nucleated RBC % 0, Sodium 136, Potassium 4.0, Chloride 102, Carbon Dioxide 19.8 L, Anion Gap 15, BUN 34 H, Creatinine 1.62 H, Estim Creat Clear Calc 39.43 L, Est GFR (MDRD) Non-Af 43 L, BUN/Creatinine Ratio 21.0 H, Glucose 177 H, Calcium 8.8, Troponin T High Sens 46 H D 03/07/25 11:14: Troponin T Hi Sens 2 Hr 53 H 03/07/25 13:00: Magnesium 2.2, Troponin T Hi Sens 4Hr 70 H* 03/07/25 14:47: PT 16.6 H, INR 1.3, APTT 34.1 03/07/25 16:48: U Random Total Protein 26.4 H, Ur Random Sodium 34, Urine Creatinine 48.50, Protein/Creatinin Ratio 544 H 03/07/25 23:40: APTT 89.5 H 03/08/25 06:08: WBC 8.9, RBC 3.64 L, Hgb 11.0 L, Hct 32.6 L, MCV 89.6, MCH 30.2, MCHC 33.7, RDW Std Deviation 46.3 H, RDW Coeff of Megan 14.3, Plt Count 174, MPV 9.7, Immature Gran % (Auto) 0.400, Neut % (Auto) 64.3, Lymph % (Auto) 21.1, Schleicher % (Auto) 8.4, Eos % (Auto) 5.0, Baso % (Auto) 0.8, Absolute Neuts (auto) 5.7, Absolute Lymphs (auto) 1.88, Nucleated RBC % 0, APTT 146.2 H*, Sodium 140, Potassium 4.1, Chloride 109 H, Carbon Dioxide 18.4 L, Anion Gap 12, BUN 30 H, Creatinine 1.57 H, Estim Creat Clear Calc 33.96 L, Est GFR (MDRD) Non-Af 45 L, BUN/Creatinine Ratio 19.0, Glucose 168 H, Calcium 8.2, Troponin T High Sens 321 H* D Cardiology Labs/Tests 03/07/25 09:13: WBC 8.3, RBC 3.96 L, Hgb 12.2 L, Hct 36.4 L, MCV 91.9, MCH 30.8, MCHC 33.5, Plt Count 172, MPV 9.8, Immature Gran % (Auto) 0.400, Neut % (Auto) 76.7 H, Lymph % (Auto) 15.5 L, [place]le[place] % (Auto) 4.6, Eos % (Auto) 2.1, Baso % (Auto) 0.7, Absolute Neuts (auto) 6.3, Nucleated RBC % 0, Sodium 136, Potassium 4.0, Chloride 102, Carbon Dioxide 19.8 L, Anion Gap 15, BUN 34 H, Creatinine 1.62 H, Est GFR (MDRD) Non-Af 43 L, BUN/Creatinine Ratio 21.0 H, Glucose 177 H, Calcium 8.8 03/07/25 13:00: Magnesium 2.2 03/07/25 14:47: PT 16.6 H, INR 1.3, APTT 34.1 03/07/25 23:40: APTT 89.5 H 03/08/25 06:08: WBC 8.9, RBC 3.64 L, Hgb 11.0 L, Hct 32.6 L, MCV 89.6, MCH 30.2, MCHC 33.7, Plt Count 174, MPV 9.7, Immature Gran % (Auto) 0.400, Neut % (Auto) 64.3, Lymph % (Auto) 21.1, Schleicher % (Auto) 8.4, Eos % (Auto) 5.0, Baso % (Auto) 0.8, Absolute Neuts (auto) 5.7, Nucleated RBC % 0, APTT 146.2 H*, Sodium 140, Potassium 4.1, Chloride 109 H, Carbon Dioxide 18.4 L, Anion Gap 12, BUN 30 H, Creatinine 1.57 H, Est GFR (MDRD) Non-Af 45 L, BUN/Creatinine Ratio 19.0, Glucose 168 H, Calcium 8.2 Rhythm: EKG: ECHO: Stress Test: Cardiac Cath: PCI: CT Surgery: Holter monitor: EPS: PPM: CXR: Chest CT Scan: Radiography Diagnostic Testing: Radiology Impression Chest X-Ray 03/07/25 09:28 IMPRESSION: No acute cardiopulmonary process is identified radiographically. Reading Location: [facility] Physical Exam Const alert, oriented x3 and no apparent distress General Appearance: cooperative HEENT hearing grossly normal bilaterally Head and Scalp: atraumatic Eyes EOMs intact bilaterally Neck General: normal visual inspection Chest inspection of chest normal and palpation of chest normal Resp normal respiratory effort Auscultation: clear to auscultation bilaterally Cardio S1 normal heart sound and S2 normal heart sound Jugular Venous Distention: JVD Palpation: abnormal PMI Rhythm: abnormal rhythm irregularly irregular GI normal to inspection, nondistended, normoactive bowel sounds Extremity normal capillary refill and no pedal edema Peripheral Pulses: Yes pulses 2+ throughout and femoral pulses present Skin no rashes or lesions noted Neuro oriented x3 and CN's II-XII intact bilaterally Psych Appearance: grossly normal and appropriate Assessment & Plan Assessment/Plan (1) CAD (coronary artery disease) of artery bypass graft: PLAN: Patient has a history of coronary disease status post coronary bypass grafting. He is followed up at [facility]. He did have a bypass graft with a BLANC to the LAD and saphenous vein graft to the OM1. He does have mild troponin elevation but the above is likely from demand ischemia as he has been tachycardic throughout the night An echocardiogram is being performed to assess his ventricular function which was noted to be approximately 35%. (2) Atrial fibrillation with RVR: PLAN: Patient has a history of atrial fibrillation with rapid ventricular response rate. Incidentally he did have an atrial cure clip occlusion of the left atrial appendage. His anticoagulation will be resumed The plan is to perform a DC cardioversion on him. (3) History of permanent cardiac pacemaker placement: PLAN: He is status post permanent pacemaker implantation. This has been interrogated and is noted to be functioning well. (4) CKD (chronic kidney disease) stage 3, GFR 30-59 ml/min: PLAN: He does have evidence of chronic kidney disease and this will be followed with nephrology. Thank you for allowing me to participate in the care of your patient. Please don't hesitate to call if any issues arise.
[2025-03-08] MEDS: Amiodarone 150 MG in Dextrose 5%-Water (100mL Bag) 100 ML 600 MG IV BOLUS (07:26)
--- NOTE | 2025-03-08 08:43 | PCM.PN.HOSP ---
Subjective Subjective Doing well, no issues overnight. Remains tachycardic Objective Data Objective Data Vital Signs: Vital Signs Temp Pulse Resp BP Pulse Ox O2 Del Method O2 Flow Rate 98 F 124 H 14 128/74 H 95 Room Air 2 03/08/25 04:00 03/08/25 08:00 03/08/25 08:00 03/08/25 08:00 03/08/25 08:00 03/08/25 08:00 03/08/25 05:00 Oxygen Flow Rate (L/min) 2 Oxygen Delivery Method Room Air Weight: 162 lb 14.746 oz Body Mass Index (BMI) 30.7 Intake & Output: Intake and Output for Last 24 Hours 03/07/25 03/08/25 03/09/25 03:59 03:59 03:59 Intake Total 953.41 / 955.91 1170.44 / 1170.44 Output Total 725 / 725 Balance 228.41 / 230.91 1170.44 / 1170.44 Lab / Micro Data 03/08/25 06:08 03/08/25 06:08 Labs: Laboratory Results - last 24 hr 03/07/25 09:13: WBC 8.3, RBC 3.96 L, Hgb 12.2 L, Hct 36.4 L, MCV 91.9, MCH 30.8, MCHC 33.5, RDW Std Deviation 46.5 H, RDW Coeff of Megan 13.9, Plt Count 172, MPV 9.8, Immature Gran % (Auto) 0.400, Neut % (Auto) 76.7 H, Lymph % (Auto) 15.5 L, Robertson % (Auto) 4.6, Eos % (Auto) 2.1, Baso % (Auto) 0.7, Absolute Neuts (auto) 6.3, Absolute Lymphs (auto) 1.28, Nucleated RBC % 0, Sodium 136, Potassium 4.0, Chloride 102, Carbon Dioxide 19.8 L, Anion Gap 15, BUN 34 H, Creatinine 1.62 H, Estim Creat Clear Calc 39.43 L, Est GFR (MDRD) Non-Af 43 L, BUN/Creatinine Ratio 21.0 H, Glucose 177 H, Calcium 8.8, Troponin T High Sens 46 H D 03/07/25 11:14: Troponin T Hi Sens 2 Hr 53 H 03/07/25 13:00: Magnesium 2.2, Troponin T Hi Sens 4Hr 70 H* 03/07/25 14:47: PT 16.6 H, INR 1.3, APTT 34.1 03/07/25 16:48: U Random Total Protein 26.4 H, Ur Random Sodium 34, Urine Creatinine 48.50, Protein/Creatinin Ratio 544 H 03/07/25 23:40: APTT 89.5 H 03/08/25 06:08: WBC 8.9, RBC 3.64 L, Hgb 11.0 L, Hct 32.6 L, MCV 89.6, MCH 30.2, MCHC 33.7, RDW Std Deviation 46.3 H, RDW Coeff of Megan 14.3, Plt Count 174, MPV 9.7, Immature Gran % (Auto) 0.400, Neut % (Auto) 64.3, Lymph % (Auto) 21.1, Robertson % (Auto) 8.4, Eos % (Auto) 5.0, Baso % (Auto) 0.8, Absolute Neuts (auto) 5.7, Absolute Lymphs (auto) 1.88, Nucleated RBC % 0, APTT 146.2 H*, Sodium 140, Potassium 4.1, Chloride 109 H, Carbon Dioxide 18.4 L, Anion Gap 12, BUN 30 H, Creatinine 1.57 H, Estim Creat Clear Calc 33.96 L, Est GFR (MDRD) Non-Af 45 L, BUN/Creatinine Ratio 19.0, Glucose 168 H, Calcium 8.2, Troponin T High Sens 321 H* D Radiography Diagnostic Testing: Radiology Impression Chest X-Ray 03/07/25 09:28 IMPRESSION: No acute cardiopulmonary process is identified radiographically. Reading Location: [facility] Physical Exam Narrative General: Alert, Oriented x3, Cooperative, No apparent distress HEENT: Atraumatic, PERRLA, EOMI, Normocephalic Oral: Moist Mucosa Neck: Supple, No JVD Lungs: Diminished, Normal air movement, No rhonchi, No wheeze, No rales Cardiovascular: Tachycardic, Regular Rhythm, Normal S1, Normal S2, No murmurs Abdomen: Soft, Non Tender, Non-Distended, No Hepato-splenomegaly Extremities: No edema, Capillary Refill Less than 3 Seconds Skin: No rashes, No breakdown Musculoskeletal: No Tenderness to Palpation of Joints or Extremities Neurological: No focal neurological deficits, moves all extremities Psych/Mental Status: Normal Affect, Appropriate Assessment & Plan Assessment/Plan (1) Atrial tachycardia: (2) Chest pain: PLAN: Plan 1. History of paroxysmal A-fib with atrial tachycardia and chest pain/essential HTN/HLD – Will consult cardiology, plan for cardioversion today – Continue with Eliquis – Plan for echocardiogram as most of his cardiac workup is done at the [facility] – Continue with Lipitor – His blood pressure is little bit on the low side due to his tachycardia, will hold his Norvasc – Will need to increase his beta-blockade and he was started on Cardizem – Troponin elevation due to demand ischemia from his tachycardia, no significant 2. Iron deficiency anemia – Stable – Continue with his iron supplementation, hemoglobin is 12.2 DVT: Elimary lou Charges/Coding Visit Charges Inpatient E&M: 47762 Subs Hosp L2
[2025-03-08] MEDS: Diltiazem 125 MG in Dextrose 5%-Water (100mL Bag) 100 ML 15 MG IV (10:10)
[2025-03-08] MEDS: APIXABAN 5 MG TABLET PO (10:41)
[2025-03-08] MEDS: 0.9% Saline Lock 10 ML Syringe IV (10:43)
--- NOTE | 2025-03-08 12:12 | PCM.OP.PRO2 ---
Non-invasive Procedural Procedure Information Date of Procedure: 03/08/25 Pre-Procedure Diagnosis: Atrial fibrillation Post-Procedure Diagnosis: Atrial fibrillation Procedure Performed:: DC cardioversion Procedure Time Out: 12:06 Procedure Start Time: : Procedure Stop Time: :08 Special Medications: Intravenous etomidate 6 mg Description of procedure: Patient was brought to cardiac catheterization lab in the postabsorptive nonsedated state. Informed consent was obtained. Patient was seen by Dr. Iraheta of the critical care division. Anterior-posterior pads were applied. The patient was then administered 6 mg of intravenous etomidate. 200 J of synchronized DC biphasic cardioversion energy were applied with prompt reversal to AV sequentially paced rhythm. Patient tolerated the procedure well. Procedure findings: Successful DC cardioversion from atrial fibrillation to AV sequentially paced rhythm.
--- NOTE | 2025-03-08 12:30 | CASEMGMT ---
RN EUGENIE Assessment Pt is currently off of the floor. Pt's NOK (Daughter - Lainey) at the bedside and is agreeable to answering this RN CM's questions for assessment. Care providers, pharmacy, and demographics verified. Admitting dx: Tachycardia PCP:Taylor Zapien Specialists: Travis (Cardio), Urologist out of [place] (Unsure of name), Margaret (Armed Security Officer) Preferred Pharmacy: [facility] Insurance: [facility] Prescription Benefit: Yes LNOK: Lainey (Daughter), Ken (MONET) Living Arrangements: Pt lives alone in a single story home with 2 steps to enter ADLs/IADLs: Indep, 6-Click score is 22 Transportation: Self, daughter, MONET DME: functioning BGM with sufficient testing supplies including lancets, test strips, and EtOH swabs. Straight cath supplies. Cane. FWW. Shower chair. Grab bars. lift chair. Rollator. HHC/SNF: denies hx of Pt’s goal: Home Plan: Pt daughter states that the pt will want to return home with family support. Lainey states that the pt would not be interested in any additional therapy or resources and that the pt will follow up with his specialists as an OP. Noted that the pt is on home Eliquis. Educated the daughter about the savings card who states that the pt has not used this. Pt may be interested in utilizing this. Daughter denies any further questions or concerns at this time. Report given to TELECOMMUNICATIONS PROJECT MANAGER CM. Kings Davison RN, CM
--- NOTE | 2025-03-08 12:48 | PCM.OP.PRO2 ---
Procedures Pulmonary Pulmonary Procedures /Diagnostic Testin Con Sedation Non-invasive Procedural Procedure Information Date of Procedure: 03/08/25 Description of procedure: CONSCIOUS SEDATION REPORT DATE OF SERVICE: March 08, 2025 BRIEF HISTORY OF PRESENT ILLNESS: The patient is a 75-year-old male, currently admitted to [facility], after presenting with chest pain and atrial fibrillation with RVR. His most recent echocardiogram demonstrated an ejection fraction of 35%. The patient has never previously undergone a cardioversion. He denied any prior anesthetic complications. He does have a tobacco abuse history, having quit completely 5 to 6 years ago. He has never been formally diagnosed with COPD. He denies a history of obstructive sleep apnea. The patient is systemically anticoagulated on Eliquis. PHYSICAL EXAMINATION: VITAL SIGNS: Reviewed and were acceptable. GENERAL: The patient is a male, in no apparent distress, speaking in full sentences. HEENT: Normocephalic, atraumatic. Mucous membranes are moist and pink. Good mouth opening noted. Trachea is midline. Good neck mobility. CHEST: S1, S2 irregularly irregular. No murmurs, rubs or gallops were noted. LUNGS: Clear to auscultation bilaterally without appreciable wheezes, rales or rhonchi. ABDOMEN: Soft, nontender, nondistended. Positive bowel sounds. EXTREMITIES: There is no clubbing, cyanosis or edema. ASA Class: II DESCRIPTION OF PROCEDURE: After confirmation of informed consent, the patient's anesthesia plan was reviewed in detail. Etomidate was chosen. Risks and benefits were reviewed and the patient agreed to proceed. At 1206, the patient was given 6 mg of etomidate. The patient achieved an appropriate level of sedation and was given a 200 joule synchronized cardioversion by Dr. Rios at the bedside. This was successful in achieving normal sinus rhythm. The patient was monitored until 1219, at which time he reached his baseline mental status and function. The patient tolerated the procedure well. COMPLICATIONS: None ESTIMATED BLOOD LOSS: None RECOMMENDATIONS: Okay to recover in usual fashion.
[2025-03-08] MEDS: LINAGLIPTIN 5 MG TABLET PO (13:33)
--- NOTE | 2025-03-08 16:44 | DCINST_ITS ---
Discharge Instructions DC O2, CPAP, BIPAP needs Home O2 Discharge instructions: No Dressing / Incision Discharge Activity: Return to Normal Activity Dressing / Incision Call your doctor if you observe: Fever of 101 or Higher, Shortness of breath, Dizziness, Fainting spells, Swelling in the ankles, Chest pain and Increased palpitations (irregular heartbeat) Follow Up Care Test Results: Test results from this visit will be discussed in further detail at your follow- up appointment, if applicable. Discharge Plan Admission Admit Date/Time: 03/07/25 10:48 Attending Provider: Duglas Salazar Primary Care Provider: Taylor Zapien NP Consulting Providers: Marina Aguirre Discharge Orders/Prescriptions Prescriptions: New carvedilol 12.5 mg Tablet 12.5 mg PO BIDCM 30 Days Qty: 60 0RF amiodarone 200 mg Tablet 200 mg PO BID 30 Days Qty: 60 0RF Rx Instructions: Take 1 tablet twice daily for 7 days then take 1 tablet daily Continued atorvastatin 80 mg tablet 80 mg PO DAILY polysaccharide iron complex [Ferrex 150] 150 mg iron capsule 150 mg PO DAILY folic acid 1 mg tablet 1 mg PO DAILY Januvia 50 mg tablet 50 mg PO DAILY Eliquis 5 mg tablet 5 mg PO BID ascorbic acid (vitamin C) [C-500] 500 mg tablet 500 mg PO DAILY cinnamon bark [Cinnamon] 500 mg capsule 500 mg PO DAILY Held amlodipine 10 mg tablet 10 mg PO DAILY Hold Instructions: Resume on 03/16/25. Discontinued carvedilol [Coreg] 6.25 mg tablet 6.25 mg PO BID 30 Days Qty: 60 0RF Rx Instructions: must administer with a meal/food Referrals / Follow Up: Konrad iRos MD [Med Staff - Active Staff, Cardiology] - Within 1 Month Taylor Zapien NP, [employer] [Primary Care Provider, Family Practice] - Within 1 Week Disposition Disposition (needs filled in before D/C Order can be placed): Home, Self Care
--- NOTE | 2025-03-08 16:48 | PCM.DC.SUM ---
Providers Date of Admission: 03/07/25 Primary Care Physician: JUDSON Harper Consultations 03/07/25 11:27 Consult: Cardiology Routine Consulting Provider: Marina Aguirre Reason for Consult: Tachy EMERGENT Consult: No MD Notified: Yes Date Notified: 03/07/25 Time Notified: 10:50 Method of Notification: ED Physician Initiated 03/07/25 13:38 Consult: Nephrology Routine Consulting Provider: Marina Aguirre Reason for Consult: elevated creatinine EMERGENT Consult: No MD Notified: Yes Date Notified: 03/07/25 Time Notified: 13:46 Method of Notification: Answering Service Reason For Visit: TACHYCARDIA Diagnosis Discharge Diagnosis (1) CAD (coronary artery disease) of artery bypass graft: Status: Acute Code(s): I25.810 - Atherosclerosis of coronary artery bypass graft(s) without angina pectoris (2) Atrial fibrillation with RVR: Status: Acute Code(s): I48.91 - Unspecified atrial fibrillation (3) History of permanent cardiac pacemaker placement: Status: Acute Code(s): Z95.0 - Presence of cardiac pacemaker (4) CKD (chronic kidney disease) stage 3, GFR 30-59 ml/min: Status: Chronic Code(s): N18.30 - Chronic kidney disease, stage 3 unspecified Medications at Discharge Home Medications amlodipine 10 mg tablet 10 mg PO DAILY 03/01/25 Held on 03/08/25. Instructions: Resume on 03/16/25. apixaban 5 mg tablet (Eliquis) 5 mg PO BID 03/01/25 atorvastatin 80 mg tablet 80 mg PO DAILY 03/01/25 folic acid 1 mg tablet 1 mg PO DAILY 03/01/25 polysaccharide iron complex 150 mg iron capsule (Ferrex) 150 mg PO DAILY 03/01/25 sitagliptin phosphate 50 mg tablet (Januvia) 50 mg PO DAILY 03/01/25 ascorbic acid (vitamin C) 500 mg tablet (C-500) 500 mg PO DAILY 03/07/25 cinnamon bark 500 mg capsule (Cinnamon) 500 mg PO DAILY 03/07/25 amiodarone 200 mg tablet 200 mg PO BID 30 days #60 tabs 03/08/25 carvedilol 12.5 mg tablet 12.5 mg PO BIDCM 30 days #60 tabs 09/29/25 Hospital Course Operations None Procedures 2-D Echocardiogram and Cardioversion Summary of Care Provided Minutes Spent on Discharge: 36 Hospital Course: Per HPI: SHARON MEJIA, is a 75 M who presents to the hospital with palpitations. He was recently seen about a week ago with palpitations and had increased to his Coreg and discharged home. He was stable for about a week before feeling palpitations and some mild chest pain today. Troponins are slightly elevated but insignificant and do not demonstrate any ischemia on EKG. He presents today with recurrent tachycardia though does appear atrial and he does have a pacemaker in place that is atrially sensed and ventricularly paced that does not demonstrate any A-fib or flutter. In the ER he was started on some IV fluids and chest x-ray was unremarkable with no signs of infection. Hospital Course: 1. History of paroxysmal A-fib with atrial tachycardia and chest pain/essential HTN/HLD/chronic systolic CHF–75-year-old male with previous history of CABG and pacemaker placement for paroxysmal A-fib presented to the hospital with recurrent tachycardia and chest pain. He did have an elevated troponin consistent with demand ischemia from his tachycardia. He did have an echocardiogram which demonstrated an EF of 35% and mild to moderate segmental systolic dysfunction. He initially presented about a week ago with tachycardia and had an increase in his Coreg which controlled his heart rate however he had recurrent tachycardia presenting to the hospital. He underwent cardioversion today and was initiated on amiodarone therapy at 200 mg p.o. twice daily which he will take for 7 days and then transition to amiodarone 200 mg p.o. daily. His Coreg was also increased to 12.5 mg p.o. twice daily. Will continue with his Lipitor and I did put his Norvasc on hold to see how he tolerates the new additions to his blood pressure regimen, I do recommend he follow-up with his PCP in 3 to 5 days if he continues to have somewhat elevated blood pressures and his Norvasc can be restarted at their discretion. After cardioversion he returned to a normal heart rate but is ventricularly paced and he is doing much better. I discussed with him the plan for discharge today and both he and his daughter expressed understanding of the risks and benefits of discharge and would like to go today. Weight / BMI Weight Weight: 162 lb 14.746 oz Body Mass Index (BMI) 30.7 ABG / Lab / Microbiology Data 03/08/25 06:08 03/08/25 06:08 Laboratory: Laboratory Results - last 24 hr 03/07/25 16:48: U Random Total Protein 26.4 H, Ur Random Sodium 34, Urine Creatinine 48.50, Protein/Creatinin Ratio 544 H 03/07/25 23:40: APTT 89.5 H 03/08/25 06:08: WBC 8.9, RBC 3.64 L, Hgb 11.0 L, Hct 32.6 L, MCV 89.6, MCH 30.2, MCHC 33.7, RDW Std Deviation 46.3 H, RDW Coeff of Megan 14.3, Plt Count 174, MPV 9.7, Immature Gran % (Auto) 0.400, Neut % (Auto) 64.3, Lymph % (Auto) 21.1, Valencia % (Auto) 8.4, Eos % (Auto) 5.0, Baso % (Auto) 0.8, Absolute Neuts (auto) 5.7, Absolute Lymphs (auto) 1.88, Nucleated RBC % 0, APTT 146.2 H*, Sodium 140, Potassium 4.1, Chloride 109 H, Carbon Dioxide 18.4 L, Anion Gap 12, BUN 30 H, Creatinine 1.57 H, Estim Creat Clear Calc 33.96 L, Est GFR (MDRD) Non-Af 45 L, BUN/Creatinine Ratio 19.0, Glucose 168 H, Calcium 8.2, Troponin T High Sens 321 H* D Radiography Diagnostic Testing: Radiology Impression Echocardiogram 03/07/25 11:27 Interpretation Summary Normal LV size. The left ventricular ejection fraction is 35 %. Mild concentric left ventricular hypertrophy. Mild to moderate segmental systolic dysfunction (see wall motion). Ordering Physician: Duglas Salazar Performed By: Eli Chery RDCS D/C Instructions Call your doctor if you observe: Fever of 101 or Higher, Shortness of breath, Dizziness, Fainting spells, Swelling in the ankles, Chest pain and Increased palpitations (irregular heartbeat) DC O2, CPAP, BIPAP Needs Home O2 Discharge instructions: No Meaningful Use Info Meaningful Use Meaningful Use Diagnoses (Choose all that apply): None applicable Discharge Plan Admission Admit Date/Time: 03/07/25 10:48 Attending Provider: Duglas Salazar Primary Care Provider: Taylor Zapien NP Consulting Providers: Marina Aguirre Discharge Orders/Prescriptions Prescriptions: New carvedilol 12.5 mg Tablet 12.5 mg PO BIDCM 30 Days Qty: 60 0RF amiodarone 200 mg Tablet 200 mg PO BID 30 Days Qty: 60 0RF Rx Instructions: Take 1 tablet twice daily for 7 days then take 1 tablet daily Continued atorvastatin 80 mg tablet 80 mg PO DAILY polysaccharide iron complex [Ferrex 150] 150 mg iron capsule 150 mg PO DAILY folic acid 1 mg tablet 1 mg PO DAILY Januvia 50 mg tablet 50 mg PO DAILY Eliquis 5 mg tablet 5 mg PO BID ascorbic acid (vitamin C) [C-500] 500 mg tablet 500 mg PO DAILY cinnamon bark [Cinnamon] 500 mg capsule 500 mg PO DAILY Held amlodipine 10 mg tablet 10 mg PO DAILY Hold Instructions: Resume on 03/16/25. Discontinued carvedilol [Coreg] 6.25 mg tablet 6.25 mg PO BID 30 Days Qty: 60 0RF Rx Instructions: must administer with a meal/food Referrals / Follow Up: Konrad Rios MD [Med Staff - Active Staff, Cardiology] - Within 1 Month Taylor Zapien NP, [employer] OPERATOR-C [Primary Care Provider, Family Practice] - Within 1 Week Disposition Disposition (needs filled in before D/C Order can be placed): Home, Self Care Charges/Coding Visit Charges Inpatient E&M: 75028 Disch Hosp >30min
== END 2025-03-08 18:04 | disposition home or self-care (01) | DRG 309 ==
LOC: ED 10:48 → PCU 11:11
PROVIDERS: Internal Medicine; Internal Medicine Interventional Cardiology; Admitting Provider Family Medicine; Emergency Provider Emergency Medicine; PCP Nurse Practitioner Family; Visit Provider Family Medicine
DX: I47.19 Other supraventricular tachycardia (principal); N17.9 Acute kidney failure, unspecified; I24.89 Other forms of acute ischemic heart disease; I13.0 Hypertensive heart and chronic kidney disease with heart failure and stage 1 through stage 4 chronic kidney disease, or unspecified chronic kidney disease; I25.810 Atherosclerosis of coronary artery bypass graft(s) without angina pectoris; I50.22 Chronic systolic (congestive) heart failure; Q60.0 Renal agenesis, unilateral; E11.22 Type 2 diabetes mellitus with diabetic chronic kidney disease; D50.9 Iron deficiency anemia, unspecified; E78.5 Hyperlipidemia, unspecified; N18.30 Chronic kidney disease, stage 3 unspecified; I48.91 Unspecified atrial fibrillation; I25.10 Atherosclerotic heart disease of native coronary artery without angina pectoris; Z79.899 Other long term (current) drug therapy; Z79.84 Long term (current) use of oral hypoglycemic drugs; Z79.01 Long term (current) use of anticoagulants; Z95.0 Presence of cardiac pacemaker; Z95.1 Presence of aortocoronary bypass graft; Z87.891 Personal history of nicotine dependence
CPT/HCPCS: 36415; 71045; 80048; 82570; 83735; 84156; 84300; 84484; 85025; 85610; 85730; 92960; 93005; 93306; 99285; A4216